=== PATIENT | male | born 1945 | race Caucasian/White ===

== ENCOUNTER 2017-06-13 07:18 | Emergency (ER) | payer OTHER ==
[~2017-06-13] VITALS: Ht 172.7 cm; Wt 117.9 kg
[~2017-06-13 07:18] MED LIST: AMLO5TAB2 PO; ASPI-378 OR; ASPI25CA2 PO; ATEN50TA PO; ATOR20TA50 PO; CALC-30; CALCTAB25 PO; LOSA50TA6 PO; TAMS0.4C36 PO
[2017-06-13] MEDS ORDERED: SODIUM CHLORIDE 0.9% 1,000 ML IV ONE (07:30)
[2017-06-13 08:13] LABS: Urine Bilirubin Negative (Negative); Urine Blood Negative /uL (Negative); Urine Color Yellow (Yellow); Urine Glucose 3+ mg/dL (Normal); Urine Ketone 1+ (Negative); Urine Mucus FEW (None Seen); Urine Nitrite Negative (Negative); Urine RBC 1 /hpf (0 - 3); Urine Squamous Epithelial Cell FEW /hpf (<5); Urine pH 6.5 (5.0-8.0)
[2017-06-13 08:54] LABS: Basophils # (auto) 0.1 uL; Basophils % (auto) 0.9 % (0.0-2.0); Eosinophils # (auto) 0.1 uL; Hematocrit 40.7 % (41.0-53.0); Hemoglobin 13.7 g/dL (13.5-17.5); Lymphocytes % (auto) 10.5 % (10.0-50.0); Mean Corpuscular Hemoglobin 28.1 pg (28.0-32.0); Mean Corpuscular Hgb Conc. 33.5 g/dL (32.0-36.0); Mean Corpuscular Volume 83.9 fL (80.0-100.0); Mean Platelet Volume 7.6 fL (7.4-10.4); Monocytes # (auto) 0.6 uL; Monocytes % (auto) 6.3 % (0.0-12.0); Neutrophils # (auto) 7.7 uL; Neutrophils % (auto) 81.3 % (37.0-80.0); Platelet Count (auto) 280 10^3/uL (140-450); Red Cell Distribution Width 13.8 % (11.6-16.0); White Blood Cell 9.5 10^3/uL (4.4-10.8)
[2017-06-13 09:24] LABS: INR 0.95 (0.9-1.15); Partial Thromboplastin Time 23.8 sec (22.64-33.71); Prothrombin Time 10.4 sec (9.37-12.3)
[2017-06-13 09:30] LABS: B-Type Natriuretic Peptide 410.32 pg/mL (0-100)
[2017-06-13 09:35] LABS: Temperature: 23.1 C (20.0-25.0)
[2017-06-13 10:05] LABS: Albumin 3.3 g/dL (3.4-5.0); Calcium 8.7 mg/dL (8.5-10.1); Magnesium 1.8 mg/dL (1.6-2.6); Potassium 3.7 mmol/L (3.5-5.1)
[2017-06-13 10:10] LABS: Bilirubin, Total 0.5 mg/dL (0.2-1.0); Total Protein 7.3 g/dL (6.4-8.2)
[2017-06-13] MEDS ORDERED: IOHEXOL 350 MG/ML 100ML IJ ONE (10:51)
[2017-06-13] MEDS ORDERED: cefTRIAXone 1GM/50ML D5W 50 ML IV ONE (11:00)
[2017-06-13] MEDS ORDERED: FUROSEMIDE 40 MG/4 ML VIAL IV ONE (11:00)
[2017-06-13] MEDS ORDERED: NITROGLYCERIN 0.4MG/HR TOPICAL PATCH TD ONE (13:30)
[2017-06-13 15:07] VITALS: BP 121/95
== END 2017-06-13 16:33 | disposition short-term general hospital (02) ==
LOC: EDBD 07:18 → ER 07:18
DX: I48.91 Unspecified atrial fibrillation (principal); J18.9 Pneumonia, unspecified organism; E78.5 Hyperlipidemia, unspecified; M19.90 Unspecified osteoarthritis, unspecified site; R74.8 Abnormal levels of other serum enzymes; E44.1 Mild protein-calorie malnutrition; J81.0 Acute pulmonary edema; E11.65 Type 2 diabetes mellitus with hyperglycemia; I25.2 Old myocardial infarction; I25.10 Atherosclerotic heart disease of native coronary artery without angina pectoris; Z98.61 Coronary angioplasty status; Z68.39 Body mass index [BMI] 39.0-39.9, adult; Z87.891 Personal history of nicotine dependence
CPT/HCPCS: 36415; 71020; 71275; 80053; 81001; 83036; 83735; 83880; 84443; 84484; 85025; 85379; 85610; 85730; 87040; 93005; 94761; 96361; 96365; 96375; 99285; J0696; J1940; J7030; Q9967

== ENCOUNTER 2017-12-30 06:31 | Emergency (ER) | payer OTHER ==
[~2017-12-30] VITALS: Ht 172.7 cm; Wt 113.4 kg
[2017-12-30] MEDS ORDERED: ALBUTEROL SULF 2.5 MG/0.5ML(0.5%) NEB SOLN HHN ONE (08:00)
[2017-12-30] MEDS ORDERED: methylPREDNISolone SOD SUCC 125 MG/2 ML VL IV ONE (08:00)
[2017-12-30] MEDS ORDERED: IPRATROPIUM BROM 0.5 MG/2.5ML INH SOL HHN ONE (08:00)
[2017-12-30] MEDS ORDERED: FUROSEMIDE 40 MG/4 ML VIAL IV ONE (09:00)
[2017-12-30 09:05] LABS: Eosinophils # (auto) 0.2 uL; Monocytes # (auto) 0.7 uL; Monocytes % (auto) 6.7 % (0.0-12.0); Red Blood Cells 4.82 10^6/uL (4.5-5.90); White Blood Cell 9.8 10^3/uL (4.4-10.8)
[2017-12-30 09:07] LABS: Basophils # (auto) 0.1 uL; Basophils % (auto) 0.7 % (0.0-2.0); Eosinophils % (auto) 1.8 % (0.0-7.0); Hematocrit 38.5 % (41.0-53.0); Hemoglobin 12.5 g/dL (13.5-17.5); Lymphocytes # (auto) 1.1 uL; Lymphocytes % (auto) 11.4 % (10.0-50.0); Mean Corpuscular Hemoglobin 25.9 pg (28.0-32.0); Mean Corpuscular Hgb Conc. 32.5 g/dL (32.0-36.0); Mean Corpuscular Volume 79.7 fL (80.0-100.0); Neutrophils # (auto) 7.8 uL; Neutrophils % (auto) 79.4 % (37.0-80.0); Platelet Count (auto) 278 10^3/uL (140-450); Red Cell Distribution Width 15.4 % (11.8-14.3)
[2017-12-30 09:28] LABS: Alanine Aminotransferase 42 U/L (16-61); Albumin 2.9 g/dL (3.4-5.0); Alkaline Phosphatase 157 U/L (45-117); Anion Gap 7 (5-15); Aspartate Aminotransferase 18 U/L (15-37); BUN/Creatinine Ratio 18.3; Bilirubin, Total 0.7 mg/dL (0.2-1.0); Blood Urea Nitrogen 21 mg/dL (7-18); Carbon Dioxide 24 mmol/L (21-32); Chloride 103 mmol/L (98-107); GFR African American 81 mL/min; GFR Non-African American 67 mL/min; Glucose 130 mg/dL (74-106); Magnesium 1.9 mg/dL (1.6-2.6); Potassium 4.1 mmol/L (3.5-5.1); Sodium 134 mmol/L (136-145); Total Protein 6.9 g/dL (6.4-8.2)
[2017-12-30 10:05] LABS: Urine Bacteria NONE SEEN /hpf (None Seen); Urine Blood Negative /uL (Negative); Urine WBC <1 /hpf (0 - 3)
[2017-12-30 12:31] VITALS: BP 150/98
== END 2017-12-30 12:42 | disposition short-term general hospital (02) ==
LOC: ER 06:32
DX: I13.0 Hypertensive heart and chronic kidney disease with heart failure and stage 1 through stage 4 chronic kidney disease, or unspecified chronic kidney disease (principal); I50.9 Heart failure, unspecified; N18.3 Chronic kidney disease, stage 3 (moderate); E11.22 Type 2 diabetes mellitus with diabetic chronic kidney disease; I25.2 Old myocardial infarction; I25.10 Atherosclerotic heart disease of native coronary artery without angina pectoris; Z90.49 Acquired absence of other specified parts of digestive tract; Z79.4 Long term (current) use of insulin; Z87.891 Personal history of nicotine dependence
CPT/HCPCS: 36415; 71045; 80053; 81001; 83605; 83735; 83880; 84484; 85025; 87040; 93005; 94640; 94761; 96374; 96375; 99285; J1940; J2930

== ENCOUNTER 2018-10-31 19:36 | Emergency (ER) | payer OTHER ==
[~2018-10-31] VITALS: Ht 175.3 cm; Wt 117.9 kg
[~2018-10-31 19:36] MED LIST changes: +AMLO5TAB13 PO; -AMLO5TAB2 PO; +LOSA-46 PO; -LOSA50TA6 PO
[2018-10-31] MEDS ORDERED: DILTIAZEM HCL 25 MG/5 ML VIAL IV ONE (20:00)
[2018-10-31] MEDS ORDERED: DILTIAZEM HCL 60 MG TAB PO ONE (20:00)
[2018-10-31 20:11] LABS: Basophils # (auto) 0.1 uL; Eosinophils # (auto) 0.2 uL; Monocytes # (auto) 0.6 uL; Neutrophils % (auto) 76.5 % (37.0-80.0)
[2018-10-31 20:12] LABS: Basophils % (auto) 1.2 % (0.0-2.0); Eosinophils % (auto) 2.8 % (0.0-7.0); Hematocrit 33.1 % (41.0-53.0); Hemoglobin 10.5 g/dL (13.5-17.5); Lymphocytes # (auto) 1.1 uL; Lymphocytes % (auto) 12.3 % (10.0-50.0); Mean Corpuscular Hemoglobin 22.7 pg (28.0-32.0); Mean Corpuscular Hgb Conc. 31.6 g/dL (32.0-36.0); Mean Corpuscular Volume 71.8 fL (80.0-100.0); Monocytes % (auto) 7.2 % (0.0-12.0); Neutrophils # (auto) 6.7 uL; Platelet Count (auto) 318 10^3/uL (140-450); Red Blood Cells 4.61 10^6/uL (4.5-5.90); White Blood Cell 8.8 10^3/uL (4.4-10.8)
[2018-10-31 20:28] LABS: Calcium 8.4 mg/dL (8.5-10.1); Potassium 3.5 mmol/L (3.5-5.1)
[2018-10-31 20:29] LABS: Red Cell Distribution Width 20.5 % (11.8-14.3)
[2018-10-31 20:36] LABS: BUN/Creatinine Ratio 21.1; Bilirubin, Total 0.7 mg/dL (0.2-1.0); Total Protein 7.5 g/dL (6.4-8.2)
[2018-10-31 20:41] LABS: INR 1.03 (0.9-1.15); Partial Thromboplastin Time 25.7 sec (23.78-33.04)
[2018-11-01] MEDS ORDERED: FUROSEMIDE 20 MG/2 ML VIAL IV ONE (01:30)
[2018-11-01] MEDS ORDERED: cefTRIAXone 1GM/50ML D5W 50 ML IV ONE (03:15)
[2018-11-01 03:21] VITALS: BP 171/91
== END 2018-11-01 07:46 | disposition home or self-care (01) ==
LOC: EDBD 19:36 → ER 19:42
DX: J18.9 Pneumonia, unspecified organism (principal); I48.91 Unspecified atrial fibrillation; I11.0 Hypertensive heart disease with heart failure; I50.9 Heart failure, unspecified; J44.9 Chronic obstructive pulmonary disease, unspecified; E11.9 Type 2 diabetes mellitus without complications; E78.5 Hyperlipidemia, unspecified; M54.2 Cervicalgia; R51 Headache; I25.2 Old myocardial infarction; Z90.49 Acquired absence of other specified parts of digestive tract; Z87.891 Personal history of nicotine dependence; Z98.61 Coronary angioplasty status
CPT/HCPCS: 36415; 70450; 71045; 71250; 72125; 80053; 83735; 83880; 84443; 84484; 85025; 85610; 85730; 93005; 94761; 96365; 96375; 99284; J0696; J1940

== ENCOUNTER 2020-03-11 07:53 | Inpatient (IN) | payer OTHER ==
[~2020-03-11] VITALS: Ht 177.8 cm; Wt 135.3 kg
[~2020-03-11 07:53] MED LIST changes: -AMLO5TAB13 PO; +AMLO5TAB15 PO; -LOSA-46 PO; +LOSA-69 PO
[2020-03-11] MEDS ORDERED: FUROSEMIDE 40 MG/4 ML VIAL IV ONE ×2 (08:15→08:45)
[2020-03-11 08:28] LABS: Basophils # (auto) 0.1 10 ^3/uL (0-0.2); Hemoglobin 10.4 g/dL (13.5-17.5); Lymphocytes # (auto) 1.5 10 ^3/uL (0.4-5.4); Monocytes # (auto) 0.8 10 ^3/uL (0-1.3); Nucleated Red Blood Cells % 0.1 %; White Blood Cell 11.7 10^3/uL (4.4-10.8)
[2020-03-11 08:30] LABS: Eosinophils # (auto) 0.1 10 ^3/uL (0-0.8); Eosinophils % (auto) 1.2 % (0.0-7.0); Hematocrit 32.8 % (41.0-53.0); Lymphocytes % (auto) 12.4 % (10.0-50.0); Mean Corpuscular Hemoglobin 25.8 pg (28.0-32.0); Mean Corpuscular Hgb Conc. 31.7 g/dL (32.0-36.0); Mean Corpuscular Volume 81.5 fL (80.0-100.0); Monocytes % (auto) 7.1 % (0.0-12.0); Neutrophils # (auto) 9.1 10 ^3/uL (1.6-8.6); Neutrophils % (auto) 78.3 % (37.0-80.0); Platelet Count (auto) 369 10^3/uL (140-450); Red Blood Cells 4.03 10^6/uL (4.5-5.90); Red Cell Distribution Width 17.6 % (11.8-14.3)
[2020-03-11 08:46] LABS: Alanine Aminotransferase 34 U/L (16-61); Albumin 2.8 g/dL (3.4-5.0); Anion Gap 8 (5-15); Aspartate Aminotransferase 28 U/L (15-37); BUN/Creatinine Ratio 17.3; Blood Urea Nitrogen 17 mg/dL (7-18); Calcium 8.2 mg/dL (8.5-10.1); Carbon Dioxide 26 mmol/L (21-32); Chloride 101 mmol/L (98-107); GFR African American 96 mL/min; GFR Non-African American 80 mL/min; Glucose 154 mg/dL (74-106); INR 1.16 (0.9-1.15); Partial Thromboplastin Time 27.1 sec (23.64-32.05); Potassium 4.3 mmol/L (3.5-5.1); Sodium 135 mmol/L (136-145)
[2020-03-11 08:50] LABS: Alkaline Phosphatase 188 U/L (45-117); Bilirubin, Total 1.7 mg/dL (0.2-1.0); Total Protein 7.8 g/dL (6.4-8.2)
--- NOTE | 2020-03-11 08:53 | NUR ---
Placed pt. on 15lpm nrb mask, due to pt. being r/o covid. Pt. is awake and alert, he states is feeling much better. Pt's current sats are 99%. Abg to follow on nrb.
[2020-03-11 09:07] LABS: Urine Bacteria FEW /hpf (None Seen); Urine Blood 3+ /uL (Negative); Urine Hyaline Cast MOD /lpf (0 - 2); Urine Mucus FEW (None Seen); Urine Specific Gravity 1.019 (1.001-1.035); Urine WBC None Seen /hpf (0 - 3)
[2020-03-11] MEDS ORDERED: cefTRIAXone 1GM/50ML D5W 50 ML IV ONE (10:15)
[2020-03-11] MEDS ORDERED: AZITHROMYCIN 500MG/ 250ML 250 ML IV ONE (10:15)
[2020-03-11] MEDS ORDERED: NITROGLYCERIN 0.4 MG SL TAB SL PRN (13:30)
[2020-03-11] MEDS ORDERED: ALBUTEROL SULF 2.5 MG/0.5ML(0.5%) NEB SOLN NEB PRN (13:30)
[2020-03-11] MEDS ORDERED: TEMAZEPAM 15 MG CAP PO PRN (13:30)
[2020-03-11] MEDS ORDERED: LACTULOSE 20Gm/30ML SOLN PO PRN (13:30)
[2020-03-11] MEDS ORDERED: ACETAMINOPHEN 500 MG TAB PO PRN (13:30)
[2020-03-11] MEDS ORDERED: PROMETHAZINE HCL 25 MG/ML 1ML IV PRN (13:30)
[2020-03-11] MEDS ORDERED: MORPHINE SULF INJ 2 MG/ML SYRINGE 1ML IV PRN (13:30)
[2020-03-11] MEDS ORDERED: levoFLOXacin 500MG 100 ML IV ONE (13:45)
[2020-03-11] MEDS: SODIUM CHLOR 0.9% PF (SALINE LOCK) 10ML VIAL/SYR IV SCH ×2 (13:54→22:31)
[2020-03-11 15:16] VITALS: BP 111/59
[2020-03-11] MEDS ORDERED: DEXTROSE (50%) 50ML SYRG IV PRN (16:00)
[2020-03-11] MEDS: InsuLIN REG 1unit/0.01ml Soln (100units/ml) SC SCH ×2 (17:03→22:39)
[2020-03-11] MEDS: ACCU-CHEK COMFORT CURVE STRIP VI SCH ×2 (17:04→22:37)
[2020-03-11] MEDS: ASPIRIN-DIPYRIDAMOLE (25/200MG) CAPSULE PO SCH (22:31)
[2020-03-11] MEDS: ATORVASTATIN 20 MG TAB PO SCH (22:36)
[2020-03-11] MEDS: TAMSULOSIN HYDROCHLORIDE 0.4 MG CAP PO SCH (22:36)
[2020-03-11] MEDS: CARVEDILOL 3.125 MG TAB PO SCH (22:36)
[2020-03-12] VITALS (12 sets, daily range): BP systolic 101–130; BP diastolic 43–68
[2020-03-12] MEDS ORDERED: ALBUMIN 5% 250 ML IV ONE (01:15)
[2020-03-12] MEDS ORDERED: NOREPINEPHRINE 8 MG/250ML KIT 250 ML IV ONE (01:51)
[2020-03-12] MEDS: NOREPINEPHRINE 8 MG/250ML KIT 250 ML IV SCH (02:02)
--- NOTE | 2020-03-12 04:32 | NUR ---
AT BEDSIDE FOR MED DONALDO PANG.
[2020-03-12 05:44] LABS: Albumin 2.8 g/dL (3.4-5.0); Calcium 8.1 mg/dL (8.5-10.1); Potassium 3.8 mmol/L (3.5-5.1)
[2020-03-12 05:49] LABS: Bilirubin, Total 1.1 mg/dL (0.2-1.0); Total Protein 6.7 g/dL (6.4-8.2)
[2020-03-12] MEDS: SODIUM CHLOR 0.9% PF (SALINE LOCK) 10ML VIAL/SYR IV SCH ×3 (06:16→21:55)
[2020-03-12 06:36] LABS: Basophils # (auto) 0.1 10 ^3/uL (0-0.2); Eosinophils # (auto) 0.2 10 ^3/uL (0-0.8); Eosinophils % (auto) 2.2 % (0.0-7.0); Mean Corpuscular Hemoglobin 26.2 pg (28.0-32.0); Monocytes # (auto) 0.6 10 ^3/uL (0-1.3); Neutrophils # (auto) 7.1 10 ^3/uL (1.6-8.6); Nucleated Red Blood Cells % 0.1 %; Red Cell Distribution Width 17.5 % (11.8-14.3); White Blood Cell 9.6 10^3/uL (4.4-10.8)
[2020-03-12 06:38] LABS: Basophils % (auto) 1.1 % (0.0-2.0); Hematocrit 28.3 % (41.0-53.0); Hemoglobin 9.1 g/dL (13.5-17.5); Lymphocytes # (auto) 1.6 10 ^3/uL (0.4-5.4); Lymphocytes % (auto) 16.3 % (10.0-50.0); Mean Corpuscular Hgb Conc. 32.2 g/dL (32.0-36.0); Mean Corpuscular Volume 81.4 fL (80.0-100.0); Monocytes % (auto) 6.2 % (0.0-12.0); Neutrophils % (auto) 74.2 % (37.0-80.0); Platelet Count (auto) 317 10^3/uL (140-450); Red Blood Cells 3.47 10^6/uL (4.5-5.90)
[2020-03-12] MEDS: InsuLIN REG 1unit/0.01ml Soln (100units/ml) SC SCH ×4 (07:33→21:56)
[2020-03-12] MEDS: ACCU-CHEK COMFORT CURVE STRIP VI SCH ×4 (07:33→21:56)
[2020-03-12] MEDS: HYDROcodone-ACET 10/325MG TAB PO PRN ×2 (07:44→17:13)
[2020-03-12] MEDS: CARVEDILOL 3.125 MG TAB PO SCH (08:00)
[2020-03-12] MEDS ORDERED: FUROSEMIDE 40 MG/4 ML VIAL IV SCH (10:00)
[2020-03-12] MEDS ORDERED: levoFLOXacin 500MG 100 ML IV SCH (10:00)
[2020-03-12] MEDS ORDERED: ASPirin 81 mg TAB PO SCH (10:00)
[2020-03-12] MEDS: NITROGLYCERIN 0.2MG/HR TOPICAL PATCH TD SCH (10:00)
[2020-03-12] MEDS ORDERED: LOSARTAN POTASSIUM 50 MG TAB PO SCH (10:00)
[2020-03-12] MEDS ORDERED: ENOXAPARIN SOD 40 MG/0.4 ML SYRINGE SC SCH (10:00)
[2020-03-12] MEDS: POTASSIUM CHL 20 Meq TABLET PO SCH (10:38)
[2020-03-12] MEDS: ASPIRIN-DIPYRIDAMOLE (25/200MG) CAPSULE PO SCH (10:38)
[2020-03-12] MEDS ORDERED: cefTRIAXone 1GM/50ML D5W 50 ML IV ONE (11:15)
[2020-03-12] MEDS ORDERED: DOXYCYCLINE 100MG/250ML 250 ML IV SCH (11:15)
[2020-03-12] MEDS ORDERED: DOXYCYCLINE 100MG/250ML 250 ML IV ONE (11:15)
[2020-03-12] MEDS: DOXYCYCLINE 100 MG TAB/CAP PO SCH ×2 (11:41→21:55)
[2020-03-12] MEDS: ALBUTEROL SULF 2.5 MG/0.5ML(0.5%) NEB SOLN NEB SCH ×2 (15:47→18:24)
[2020-03-12] MEDS: IPRATROPIUM BROM 0.5 MG/2.5ML INH SOL NEB SCH ×2 (15:47→18:24)
--- NOTE | 2020-03-12 16:32 | NUR ---
1628 03/12/20 Contacted [facility] at [phone] spoke with case management director Varsha requesting authorization for continued stay. Per Varsha authorization pending review of all clinical. Also informed Varsha transfer order, h/p,labs, meds, all were faxed, Varsha did acknowledge receipt of all documents. Varsha stated that she would work on transfer to [facility].
--- NOTE | 2020-03-12 16:50 | NUR ---
[facility] CALLED FOR AN UPDATE. REQUEST FOR TRANSFER IN PROCESS. PATIENT AWARE.
--- NOTE | 2020-03-12 17:00 | NUR ---
VERA REFUSED PATIENT NOTIFIED OF IMPORTANCE OF VERA CATHETER, PATIENT CONTINUES TO REFUSE VERA AT THIS TIME AND STATES HIS PATIENTS RIGHTS. THIS RN AGREES. VERA HELD.
--- NOTE | 2020-03-12 18:00 | NUR ---
IV removal IV DC'd with sterile technique, catheter fully intact. Pressure dressing applied to site. Patient tolerated procedure well. Discharged with aftercare instructions per MD. NOTE:
--- NOTE | 2020-03-12 18:06 | NUR ---
DR. FELIZ AT BEDSIDE.
[2020-03-12] MEDS: DOBUTamine 1000MCG/ML 250 ML IV SCH (18:15)
--- NOTE | 2020-03-12 18:33 | NUR ---
U/S TECH AT BEDSIDE
--- NOTE | 2020-03-12 18:34 | NUR ---
BP PATIENTS CURRENT BP 130/47. LEVO DECREASED PER PROTOCOL. DOBUTAMINE TO BE CHANGED IF PT CONTINUES TO NEED LEVOPHED. ONCOMING NURSE TO FOLLOW UP PT IS TOLERATING TITRATION OFF LEVOPHED.
--- NOTE | 2020-03-12 19:30 | NUR ---
SHIFT OPENING NOTE RECEIVED PATIENT AWAKE, ALERT AND ORIENTED X4 EATING DINNER. NO SOB, DISTRESS OR PAIN NOTED. ON 8L N/C. REFUSES ANY OTHER OXYGENATION DEVICE. USES URINAL, HAS REFUSED VERA CATHETER PLACEMENT. RIGHT IJ 3 LUMEN SALINE LOCKED. +3 PITTING EDEMA TO LOWER EXTREMITIES. DAY SHIFT NURSE STOPPED THE LEVOPHED AT 1830. PATIENT IS ON NO DRIPS AT THIS TIME. PHYSICAL ASSESSMENT COMPLETED, SEE INTERVENTIONS. INSTRUCTED ON POC AND TO CALL FOR ASSIST NEEDED. BED IS IN THE LOWEST POSITION WITH SIDE RAILS UP X2, CALL LIGHT IS WITHIN REACH. PENDING TRANSFER TO [place]. NO BED YET.
[2020-03-12] MEDS: ATORVASTATIN 20 MG TAB PO SCH (21:55)
[2020-03-12] MEDS: TAMSULOSIN HYDROCHLORIDE 0.4 MG CAP PO SCH (21:55)
[2020-03-12] MEDS: ENOXAPARIN SOD 150 MG/1 ML SYRINGE SC SCH (21:56)
[2020-03-12] MEDS: FUROSEMIDE 40 MG/4 ML VIAL IV SCH (22:00)
--- NOTE | 2020-03-12 22:00 | NUR ---
REFUSED LASIX PATIENT REFUSED LASIX, SAID THAT "THE DOCTOR SHOULD KNOW NOT TO GIVE IT AT NIGHT" EXPLAINED TO THE PATIENT REGARDING HIS DIAGNOSIS AND THE NEED FOR A VERA CATHETER IN ORDER FOR HIM TO GET THE CORRECT TREATMENT AROUND THE CLOCK AND FOR THE STAFF TO MONITOR HIM. PATIENT REFUSED VERA CATHETER SAYING "IF THE DOCTOR MAKES ME GET IT, ILL LEAVE JUST LIKE I ALMOST DID IN THE ER". PATIENT IS NONCOMPLIANT AND SAYS HE HAS HIS PATIENT RIGHTS TO REFUSE ANYTHING HE WANTS.
[2020-03-13] VITALS (22 sets, daily range): BP systolic 96–144; BP diastolic 45–83
[2020-03-13] MEDS: DOBUTamine 1000MCG/ML 250 ML IV SCH ×2 (00:29→06:06)
[2020-03-13] MEDS: NOREPINEPHRINE 8 MG/250ML KIT 250 ML IV SCH (01:45)
[2020-03-13 04:19] LABS: Basophils # (auto) 0.1 10 ^3/uL (0-0.2); Eosinophils # (auto) 0.4 10 ^3/uL (0-0.8); Eosinophils % (auto) 4.8 % (0.0-7.0); Nucleated Red Blood Cells % 0.1 %
[2020-03-13 04:21] LABS: Basophils % (auto) 1.3 % (0.0-2.0); Hematocrit 28.8 % (41.0-53.0); Hemoglobin 9.4 g/dL (13.5-17.5); Lymphocytes # (auto) 1.2 10 ^3/uL (0.4-5.4); Lymphocytes % (auto) 15.1 % (10.0-50.0); Mean Corpuscular Hemoglobin 26.3 pg (28.0-32.0); Mean Corpuscular Hgb Conc. 32.4 g/dL (32.0-36.0); Monocytes # (auto) 0.5 10 ^3/uL (0-1.3); Monocytes % (auto) 6.5 % (0.0-12.0); Neutrophils # (auto) 5.8 10 ^3/uL (1.6-8.6); Neutrophils % (auto) 72.3 % (37.0-80.0); Platelet Count (auto) 337 10^3/uL (140-450); Red Blood Cells 3.56 10^6/uL (4.5-5.90); Red Cell Distribution Width 17.7 % (11.8-14.3)
[2020-03-13 04:34] LABS: BUN/Creatinine Ratio 25.6; Calcium 8.3 mg/dL (8.5-10.1); Potassium 4.4 mmol/L (3.5-5.1)
--- NOTE | 2020-03-13 06:00 | NUR ---
MORNING HYGIENE CARE PARTIAL BED BATH PERFORMED WITH WET SOAPY WASH CLOTHES. GOWN CHANGED. PARTIAL LINEN CHANGED. PATIENT REPOSITIONED FOR COMFORT. NORCO GIVEN FOR BACK PAIN. TOLERATED IT WELL.
[2020-03-13] MEDS: SODIUM CHLOR 0.9% PF (SALINE LOCK) 10ML VIAL/SYR IV SCH ×3 (06:29→21:16)
[2020-03-13] MEDS: InsuLIN REG 1unit/0.01ml Soln (100units/ml) SC SCH ×4 (06:29→21:15)
[2020-03-13] MEDS: ACCU-CHEK COMFORT CURVE STRIP VI SCH ×4 (06:29→21:15)
[2020-03-13] MEDS: FUROSEMIDE 40 MG/4 ML VIAL IV SCH ×2 (06:30→18:22)
[2020-03-13] MEDS: HYDROcodone-ACET 10/325MG TAB PO PRN ×2 (06:31→18:23)
[2020-03-13] MEDS: IPRATROPIUM BROM 0.5 MG/2.5ML INH SOL NEB SCH ×3 (07:29→22:36)
[2020-03-13] MEDS: ALBUTEROL SULF 2.5 MG/0.5ML(0.5%) NEB SOLN NEB SCH ×3 (07:29→22:36)
--- NOTE | 2020-03-13 07:30 | NUR ---
END OF SHIFT REPORT GIVEN AND CARE ENDORSED TO ASHLEY CLEMONS.
[2020-03-13] MEDS: cefTRIAXone 1GM/50ML D5W 50 ML IV SCH (09:31)
[2020-03-13] MEDS: NITROGLYCERIN 0.2MG/HR TOPICAL PATCH TD SCH (10:00)
[2020-03-13] MEDS: DOXYCYCLINE 100 MG TAB/CAP PO SCH ×2 (10:14→21:16)
[2020-03-13] MEDS: POTASSIUM CHL 20 Meq TABLET PO SCH (10:14)
[2020-03-13] MEDS: ENOXAPARIN SOD 150 MG/1 ML SYRINGE SC SCH (10:14)
--- NOTE | 2020-03-13 11:02 | NUR ---
WOUND CARE NOTE: Wound care in to see patient per wound care request regarding skin integrity issue that are noted upon admission. Bedside nurse took photograph of patient's skin issue upon admission for reference. Patient is 74 years old male with admitting diagnosis of Acute Heart Failure, A Fib with RVR. Patient is resting in ICU bed in Rm. 110. Patient is awake, alert and oriented. Patient is in no stated pain at this time. He's able to assist in turning and re positioning. His Cody score is 15. Patient noted with multi intact ecchymosis to buttocks and thighs, surrounding skin is pink blanchable, no drainage/odor noted. Patient is not aware of his ecchymosis to buttocks and thighs. He's has control with bowel and bladder and uses urinal. He's receiving BID/PRN cleaning and application of Barrier cream to sacral/buttocks as preventative. Patient re ported that he's ambulatory. Patient denies any other wound/skin issue. RECOMMENDATION: Nursing to continue with BID/PRN cleaning and application of Barrier cream to sacral, buttocks as preventative, redistribute pressure points with pillows, elevate heels on pillows, continue monitoring by wound care while patient's Cody score is <18. Addendum: 03/13/20 at 1342 by Josselin Santana RN Amended: Links added.
--- NOTE | 2020-03-13 12:18 | NUR ---
Resumed care at 0725, orders reviewed and ongoing assessments being done. Upon arrival of shift in bed, awake and interacting appropriately. Assisted out of bed to chair at 0800. Able to stand and transferred to chair without incident. AM care offered and able to participate with self care. Does have some mild SOB during ADL's. BP has been holding and prior shift did not have to restart Levophed. Dr. Pérez rounded at bedside at noon and stable to downgrade to [facility] and to transfer to [place] when bed available. Discussed plan of care and patient in agreement.
[2020-03-13] MEDS ORDERED: OPTISON 3ml Vial for INJ IV ONE (14:03)
--- NOTE | 2020-03-13 14:22 | NUR ---
IMAGE ENHANCED ECHO: Administered 2 mL Optison image enhancer IV. Lot # [id number], Exp: 04/20/27
--- NOTE | 2020-03-13 15:18 | NUR ---
Returned to bed at 1345 after lunch. Has been in no acute distress. Echo. done at bedside by Radha and Dr. Avila came in for cardiology consult secondary to CHF.
--- NOTE | 2020-03-13 16:03 | NUR ---
UNABLE TO GIVE MN. TX AT 1200, DUE TO STANDBY FOR BRONCHOSCOPY IN 103 AND RE-INTUBATION. PT. CHECKED AT 1547. PT. SLEEPING, NO RESP. DISTRESS OR SOB NOTED, WILL SEE PT. AT NEXT SCHEDULED TIME.
--- NOTE | 2020-03-13 18:55 | NUR ---
Sitting in chair eating dinner at this time in no acute distress. [facility] reprehensive called and updated on condition. Plan to transfer when bed available.
--- NOTE | 2020-03-13 19:10 | NUR ---
RECEIVED REPORT ON PT FROM DAY SHIFT RN. ASSUMED CARE. AWAITING BED AVAILABILITY ON FLOOR.
--- NOTE | 2020-03-13 20:10 | NUR ---
PT TRANSFERRED TO ROOM 274 A VIA WHEELCHAIR AFTER REPORT GIVEN TO DEONTE PARKER. MADE HER AWARE OF TRANSFER TO [facility]. ALL PAPERWORK COMPLETE EXCEPT FOR DISC. TELE MONITOR AND 6L PORTABLE O2 APPLIED.
--- NOTE | 2020-03-13 20:15 | NUR ---
received pt. from icu, pt. in stable condition, no c/o pain, no sob.
[2020-03-13] MEDS: ATORVASTATIN 20 MG TAB PO SCH (21:16)
[2020-03-13] MEDS: TAMSULOSIN HYDROCHLORIDE 0.4 MG CAP PO SCH (21:16)
[2020-03-13] MEDS: APIXABAN 5 MG TAB PO SCH (21:16)
--- NOTE | 2020-03-13 22:00 | NUR ---
waiting to call back [facility], no call back at this time.
--- NOTE | 2020-03-14 | NUR ---
jacinta not calling back at this time.
[2020-03-14] MEDS: HYDROcodone-ACET 10/325MG TAB PO PRN ×4 (01:09→21:55)
[2020-03-14 05:00] VITALS: BP 131/81
[2020-03-14] MEDS: SODIUM CHLOR 0.9% PF (SALINE LOCK) 10ML VIAL/SYR IV SCH ×3 (05:32→21:54)
[2020-03-14] MEDS: FUROSEMIDE 40 MG/4 ML VIAL IV SCH ×3 (05:32→17:51)
--- NOTE | 2020-03-14 06:00 | NUR ---
v/s stable, for transfer to [place], no call back from [place], not in distress.
[2020-03-14] MEDS: InsuLIN REG 1unit/0.01ml Soln (100units/ml) SC SCH ×4 (06:05→21:56)
[2020-03-14] MEDS: ACCU-CHEK COMFORT CURVE STRIP VI SCH ×4 (06:06→21:55)
[2020-03-14 07:28] LABS: Basophils # (auto) 0.1 10 ^3/uL (0-0.2); Basophils % (auto) 0.9 % (0.0-2.0); Eosinophils # (auto) 0.4 10 ^3/uL (0-0.8); Monocytes # (auto) 0.6 10 ^3/uL (0-1.3)
--- NOTE | 2020-03-14 07:30 | NUR ---
RT Paged Pt is c/o SOB while eating. Assessed pt's O2, currently at 93% at 6L via NC. Pt requesting that we turn up his O2. Discussed with pt need to change NC to oxymizer to do so; pt refused. Paged RT for breathing treatment. Pt further states that he is "not getting better [and] should just go home". Provided pt with education on NC and oxygenation while eating; pt still adamant on need to turn up O2. Will continue too monitor.
--- NOTE | 2020-03-14 07:31 | NUR ---
Opening Note Assumed pt care from NOC RN. Pt is a/ox4 with no s/s of distress. Pt is currently sitting at edge of bed eating breakfast and c/o of SOB; RT has been paged for a breathing tx. Discussed POC with pt and pending transfer; pt verbalized understanding. Safety measures maintained with call light within reach, bed in lowest position and side rails up. Will continue to monitor.
[2020-03-14 07:35] LABS: Hematocrit 28.5 % (41.0-53.0); Hemoglobin 9.2 g/dL (13.5-17.5); Lymphocytes # (auto) 0.7 10 ^3/uL (0.4-5.4); Lymphocytes % (auto) 9.6 % (10.0-50.0); Mean Corpuscular Hemoglobin 26.1 pg (28.0-32.0); Mean Corpuscular Hgb Conc. 32.2 g/dL (32.0-36.0); Mean Corpuscular Volume 81.3 fL (80.0-100.0); Neutrophils # (auto) 5.9 10 ^3/uL (1.6-8.6); Neutrophils % (auto) 76.5 % (37.0-80.0); Platelet Count (auto) 277 10^3/uL (140-450); Red Blood Cells 3.51 10^6/uL (4.5-5.90); White Blood Cell 7.7 10^3/uL (4.4-10.8)
[2020-03-14 07:49] LABS: BUN/Creatinine Ratio 29.6; Calcium 8.2 mg/dL (8.5-10.1); Potassium 4.1 mmol/L (3.5-5.1)
[2020-03-14 08:19] VITALS: BP 119/52
[2020-03-14] MEDS: ALBUTEROL SULF 2.5 MG/0.5ML(0.5%) NEB SOLN NEB SCH ×3 (08:32→18:24)
[2020-03-14] MEDS: IPRATROPIUM BROM 0.5 MG/2.5ML INH SOL NEB SCH ×3 (08:32→18:24)
[2020-03-14] MEDS: APIXABAN 5 MG TAB PO SCH ×2 (08:39→21:54)
[2020-03-14] MEDS: DOXYCYCLINE 100 MG TAB/CAP PO SCH ×2 (08:39→21:55)
[2020-03-14] MEDS: cefTRIAXone 1GM/50ML D5W 50 ML IV SCH (08:40)
[2020-03-14] MEDS: POTASSIUM CHL 20 Meq TABLET PO SCH (08:40)
--- NOTE | 2020-03-14 10:54 | NUR ---
Spoke with [facility] Spoke with Colleen, , employment evaluator/case manager at [facility]. Answered a few questions regarding status of patient. Provided contact information for unit. She states that she would get back to me regarding transfer of patient. delicatessen department manager further stated that pt would most likely being transferred to [facility] in [place]. Will continue to monitor.
[2020-03-14 13:00] VITALS: BP 115/43
[2020-03-14 15:05] VITALS: BP 115/43
[2020-03-14 17:06] VITALS: BP 128/75
--- NOTE | 2020-03-14 17:57 | NUR ---
SPOKE WITH [facility] AT [place] ([facility]) HER PHONE NUMBER IS [phone], PATIENT WILL BE TRANSFERRED TO [facility] AT 2000, TO ROOM 310, CALL REPORT TO [phone], RN MUST CALL AFTER 193, RECEIVING MD DR SASHA FABIAN, PRIMARY RN LAURA GREEN
--- NOTE | 2020-03-14 18:03 | NUR ---
Updated pt on POC Updated pt on POC Will endorse report to [facility] RN due to [facility] staff wanting report after 1930.
--- NOTE | 2020-03-14 19:22 | NUR ---
Angelica from [facility] called, she wants an updated set of vital signs, phone number to call back is [phone].
--- NOTE | 2020-03-14 19:32 | NUR ---
[facility] TIME Called [facility] back, spoke with Angelica, new chart picker time from [facility] [place] is 2200.
--- NOTE | 2020-03-14 21:00 | NUR ---
Called for report, spoke with TAYLOR Medina given and all questions answered. Patient is going to bed 310, phone number is [phone].
[2020-03-14 21:06] VITALS: BP 115/76
[2020-03-14] MEDS: ATORVASTATIN 20 MG TAB PO SCH (21:54)
[2020-03-14] MEDS: TAMSULOSIN HYDROCHLORIDE 0.4 MG CAP PO SCH (21:54)
--- NOTE | 2020-03-14 22:41 | NUR ---
Discharge Transfers Patient is being transferred to [facility]. Patient is to follow up with accepting doctor Zulema Trujillo at the receiving facility. Patient is going to bed 310, receiving RN is Carol. Patient was transferred with [facility], all belongings sent with patient. wax pattern assembler was removed and sent to ICU. No S/S of distress or pain or SOB at discharge.
--- NOTE | 2020-03-14 23:06 | NUR ---
Called Carol CLEMONS at [facility] for an update and the ETA.
--- NOTE | 2020-03-15 08:50 | NUR ---
generating station mechanic 03/13/2020 Per consult transfer to [place]. Patient was transferred to [place] by bedside RN. No call or page on this patient. Addendum: 03/15/20 at 0852 by Tess BATES Amended: Links added.
[2020-03-30] MEDS ORDERED: AMLO2.5T7 PO (15:21)
== END 2020-03-14 22:00 | disposition short-term general hospital (02) | DRG 291 ==
LOC: EDBD 07:53 → ER 07:53 → OVERFLOW 07:54 → ICU WEST 03-12 16:20 → TELE-WESTW 03-13 20:05
PROVIDERS: ADMIT Internal Medicine; ATTEND Internal Medicine
PROC: 05HY33Z Insertion of Infusion Device into Upper Vein, Percutaneous Approach (ICD-10-PCS; principal; 2020-03-11)
PROC: 5A09357 Assistance with Respiratory Ventilation, Less than 24 Consecutive Hours, Continuous Positive Airway Pressure (ICD-10-PCS; 2020-03-11)
DX: I13.0 Hypertensive heart and chronic kidney disease with heart failure and stage 1 through stage 4 chronic kidney disease, or unspecified chronic kidney disease (principal); J96.01 Acute respiratory failure with hypoxia; J18.9 Pneumonia, unspecified organism; N17.0 Acute kidney failure with tubular necrosis; I50.33 Acute on chronic diastolic (congestive) heart failure; J81.1 Chronic pulmonary edema; I48.20 Chronic atrial fibrillation, unspecified; I48.92 Unspecified atrial flutter; E44.0 Moderate protein-calorie malnutrition; I42.9 Cardiomyopathy, unspecified; I48.0 Paroxysmal atrial fibrillation; E11.22 Type 2 diabetes mellitus with diabetic chronic kidney disease; M19.90 Unspecified osteoarthritis, unspecified site; E78.5 Hyperlipidemia, unspecified; G47.33 Obstructive sleep apnea (adult) (pediatric); I25.10 Atherosclerotic heart disease of native coronary artery without angina pectoris; Z20.828 Contact with and (suspected) exposure to other viral communicable diseases; N18.3 Chronic kidney disease, stage 3 (moderate); D63.8 Anemia in other chronic diseases classified elsewhere; J44.9 Chronic obstructive pulmonary disease, unspecified; E66.01 Morbid (severe) obesity due to excess calories; Z83.3 Family history of diabetes mellitus; Z87.891 Personal history of nicotine dependence; Z91.19 Patient's noncompliance with other medical treatment and regimen; Z95.5 Presence of coronary angioplasty implant and graft; I25.2 Old myocardial infarction; Z90.49 Acquired absence of other specified parts of digestive tract; Z90.89 Acquired absence of other organs; Z88.2 Allergy status to sulfonamides; Z79.899 Other long term (current) drug therapy; Z79.4 Long term (current) use of insulin
CPT/HCPCS: 36415; 36569; 36600; 71045; 80048; 80053; 81001; 82550; 82728; 82805; 82962; 83036; 83605; 83615; 83735; 83880; 84443; 84484; 85025; 85610; 85730; 87040; 87070; 87081; 87804; 87880; 93005; 93306; 93970; 94640; 94660; 99291; G0378; J0696; J1815; Q9956

== ENCOUNTER 2020-03-29 16:15 | Inpatient (IN) | payer OTHER ==
[~2020-03-29] VITALS: Ht 172.7 cm; Wt 132.5 kg
[2020-03-29] MEDS ORDERED: SODIUM CHLORIDE 0.9% 500 ML IV ONE (17:22)
[2020-03-29] MEDS ORDERED: ONDANSETRON HCL 4 MG/2 ML VIAL IV ONE ×2 (17:30→20:15)
[2020-03-29] MEDS ORDERED: MORPHINE SULFATE 4 MG/ML SYR/VIAL IV ONE ×2 (17:30→20:15)
[2020-03-29 18:12] LABS: Basophils # (auto) 0.1 10 ^3/uL (0-0.2); Eosinophils # (auto) 0 10 ^3/uL (0-0.8); Eosinophils % (auto) 0.1 % (0.0-7.0); Hematocrit 30.2 % (41.0-53.0)
[2020-03-29 18:14] LABS: Basophils % (auto) 0.3 % (0.0-2.0); Hemoglobin 9.2 g/dL (13.5-17.5); Lymphocytes # (auto) 1.4 10 ^3/uL (0.4-5.4); Lymphocytes % (auto) 7.7 % (10.0-50.0); Mean Corpuscular Hemoglobin 25.5 pg (28.0-32.0); Mean Corpuscular Hgb Conc. 30.4 g/dL (32.0-36.0); Mean Corpuscular Volume 83.7 fL (80.0-100.0); Monocytes # (auto) 1.2 10 ^3/uL (0-1.3); Monocytes % (auto) 6.8 % (0.0-12.0); Neutrophils # (auto) 15.6 10 ^3/uL (1.6-8.6); Neutrophils % (auto) 85.1 % (37.0-80.0); Platelet Count (auto) 311 10^3/uL (140-450); Red Blood Cells 3.61 10^6/uL (4.5-5.90); White Blood Cell 18.4 10^3/uL (4.4-10.8)
[2020-03-29 18:37] LABS: Albumin 2.5 g/dL (3.4-5.0); Calcium 8.3 mg/dL (8.5-10.1)
[2020-03-29 18:44] LABS: CRP High Sensitivity 8.59 mg/dL (< 0.3); Total Protein 6.3 g/dL (6.4-8.2)
[2020-03-29 20:14] LABS: Urine Bacteria NONE SEEN /hpf (None Seen); Urine Blood Negative /uL (Negative); Urine Specific Gravity 1.029 (1.001-1.035); Urine WBC 1 /hpf (0 - 3)
[2020-03-29] MEDS ORDERED: ONDANSETRON HCL 4 MG/2 ML VIAL IV PRN (20:45)
[2020-03-29] MEDS ORDERED: DOCUSATE SOD 100 MG CAP PO PRN (20:45)
[2020-03-29] MEDS ORDERED: ACETAMINOPHEN 500 MG TAB PO PRN (20:45)
[2020-03-29] MEDS: ALBUTEROL SULF HFA 90MCG INH 200DOSE IN SCH (22:20)
[2020-03-29] MEDS: DOXYCYCLINE 100 MG TAB/CAP PO SCH (22:24)
[2020-03-29] MEDS: MORPHINE SULF INJ 2 MG/ML SYRINGE 1ML IV PRN (22:37)
[2020-03-30] VITALS (8 sets, daily range): BP systolic 108–131; BP diastolic 48–100
[2020-03-30] MEDS ORDERED: DEXTROSE (50%) 50ML SYRG IV PRN (01:45)
--- NOTE | 2020-03-30 02:16 | NUR ---
Telemetry admit from ER MEAGAN KITCHEN admitted to Telemetry unit after SBAR received. Patient oriented to BRIDGER HOLM, RN primary RN, unit, room, bed, and unit policies regarding patient care and visiting hours. Patient now on continuous telemetry monitoring, tele box # 62 and telemetry reading on arrival to unit is . Patient placed on bedside oxygen, weighed by bedscale and encouraged to call if they need something. All questions and concerns addressed, patient verbalized understanding.
[2020-03-30] MEDS: MORPHINE SULF INJ 2 MG/ML SYRINGE 1ML IV PRN ×4 (02:41→20:23)
--- NOTE | 2020-03-30 02:41 | NUR ---
Pain Patient c/o pain 10/10 to the right knee. pain medication administered.
--- NOTE | 2020-03-30 03:11 | NUR ---
RE Pain Patient resting with eyes closed, no sign of pain or distress.
[2020-03-30] MEDS: ACCU-CHEK COMFORT CURVE STRIP VI SCH ×3 (05:38→18:00)
[2020-03-30] MEDS: InsuLIN REG 1unit/0.01ml Soln (100units/ml) SC SCH ×3 (05:38→19:15)
[2020-03-30] MEDS: THROAT LOZENGES(CEPASTAT) MT PRN ×2 (05:39→10:54)
[2020-03-30 06:12] LABS: Hemoglobin 8.3 g/dL (13.5-17.5); Mean Corpuscular Hgb Conc. 31.3 g/dL (32.0-36.0)
[2020-03-30 06:18] LABS: Hematocrit 26.6 % (41.0-53.0); Mean Corpuscular Hemoglobin 25.3 pg (28.0-32.0); Mean Corpuscular Volume 80.9 fL (80.0-100.0); Platelet Count (auto) 285 10^3/uL (140-450); Red Blood Cells 3.29 10^6/uL (4.5-5.90); Red Cell Distribution Width 17.1 % (11.8-14.3); White Blood Cell 14.7 10^3/uL (4.4-10.8)
[2020-03-30 06:23] LABS: Albumin 2.3 g/dL (3.4-5.0); Calcium 8.3 mg/dL (8.5-10.1); Potassium 4.9 mmol/L (3.5-5.1)
[2020-03-30 06:27] LABS: BUN/Creatinine Ratio 28.6; Bilirubin, Total 0.9 mg/dL (0.2-1.0); Total Protein 5.6 g/dL (6.4-8.2)
[2020-03-30 06:48] LABS: Band Neutrophils % (manual) 0; Basophils % (manual) 0 (0.0-2.0); Blast Cells 0; Eosinophils % (manual) 0 (0-7); Metamyelocytes % 0; Myelocytes % 0; Promyelocytes % 0; Reactive Lymphocytes 0
[2020-03-30] MEDS: ALBUTEROL SULF HFA 90MCG INH 200DOSE IN SCH ×2 (06:58→14:12)
[2020-03-30 07:09] LABS: Lymphocytes % (manual) 13 (10.0-50.0); Monocytes % (manual) 7 (0-12)
--- NOTE | 2020-03-30 07:29 | NUR ---
RECEIVED PATIENT FROM [facility] SHIFT RN. AWAKE ALERT AND ORIENTED X4. BARBARA AMBROSE, REPORTS 8/10 PAIN ON RIGHT LEG, WILL MEDICATE PER eMAR. PLAN OF CARE DISCUSSED. BED IN LOW AND LOCKED POSITION WITH X2 RAILS UP. ENCOURAGED TO CALL FOR ASSISTANCE PRN. WILL CONTINUE TO MONITOR Q1HR AND PRN.
--- NOTE | 2020-03-30 07:34 | NUR ---
Closing Note Patient status not changed. Report given to dayshift nurse.
[2020-03-30] MEDS ORDERED: ENOXAPARIN SOD 150 MG/1 ML SYRINGE SC SCH (08:30)
[2020-03-30] MEDS: LOSARTAN POTASSIUM 50 MG TAB PO SCH (09:19)
[2020-03-30] MEDS: CALCIUM W/VIT D (600MG/400IU) TAB PO SCH (09:20)
[2020-03-30] MEDS: ATORVASTATIN 20 MG TAB PO SCH (09:20)
[2020-03-30] MEDS: ASPirin-EC 81 mg tab PO SCH (09:21)
[2020-03-30] MEDS: DOXYCYCLINE 100 MG TAB/CAP PO SCH ×2 (09:21→21:49)
[2020-03-30] MEDS ORDERED: ATENOLOL 50 MG TAB PO SCH (10:00)
[2020-03-30] MEDS ORDERED: ZINC SULFATE 220mg CAP or TAB PO SCH (10:00)
[2020-03-30] MEDS ORDERED: ENOXAPARIN SOD 40 MG/0.4 ML SYRINGE SC SCH (10:00)
[2020-03-30] MEDS ORDERED: ASCORBIC ACID 1,000 MG TAB PO SCH (10:00)
[2020-03-30] MEDS ORDERED: amLODIPine BESYLATE 5 MG TAB PO SCH (10:00)
[2020-03-30] MEDS ORDERED: CHOLECALCIFEROL (VITD3) 1,000UNIT=25mCg TAB PO SCH (10:00)
[2020-03-30] MEDS ORDERED: ALBUTEROL SULF 2.5 MG/0.5ML(0.5%) NEB SOLN NEB PRN (14:45)
[2020-03-30] MEDS ORDERED: IPRATROPIUM BROM 0.5 MG/2.5ML INH SOL NEB PRN (14:45)
--- NOTE | 2020-03-30 14:50 | NUR ---
RECEIVED A CALL FROM JOSE MARTIN WITH [facility] [phone], DISCUSSED TRANSFER PROCESS. UPDATES ON VITAL SIGNS AND MEDICATION PROVIDED. PER JOSE MARTIN, NO ACCEPTING DOCTOR AT THIS TIME.
[2020-03-30] MEDS ORDERED: PANT40TA2 PO (15:21)
[2020-03-30] MEDS ORDERED: AMIO200T33 PO (15:21)
[2020-03-30] MEDS ORDERED: LOSA25TA38 PO (15:21)
[2020-03-30] MEDS ORDERED: DABI150C5 PO (15:21)
[2020-03-30] MEDS ORDERED: AMLO-483 PO (15:21)
[2020-03-30] MEDS ORDERED: ATOR40TA52 PO (15:21)
[2020-03-30] MEDS ORDERED: FUROSEMIDE 40 MG/4 ML VIAL IV ONE (15:30)
--- NOTE | 2020-03-30 16:00 | NUR ---
PATIENT REFUSED, SAY "DO NOT NOT TAKE IT AT MY CURRENT CONDITION, IT HAS BEEN FOR YEARS" Addendum: 03/30/20 at 1721 by Carolina Malone RN PATIENT REFUSED LASIX AT 1600
--- NOTE | 2020-03-30 17:11 | NUR ---
1415 03/30/20 - Contacted by [facility] welfare case worker Yamilka who confirmed receipt of all faxed clincials to include the transfer order. Per Yamilka there are no beds in [facility] in [facility]. Yamilka provided verbal authorization pending receipt of hard copy authorization.
[2020-03-30] MEDS: ALBUTEROL SULF 2.5 MG/0.5ML(0.5%) NEB SOLN NEB SCH (19:07)
[2020-03-30] MEDS: IPRATROPIUM BROM 0.5 MG/2.5ML INH SOL NEB SCH (19:07)
[2020-03-30] MEDS: BUDESONIDE (INHALATION) 0.5 MG/2 ML NEB NEB SCH (19:08)
--- NOTE | 2020-03-30 19:50 | NUR ---
Opening Shift Note Assumed care of patient, awake and alert. No S/S of distress/SOB or pain. Instructed on POC and to call for assist PRN, will continue to monitor for changes Q1hr and PRN.
--- NOTE | 2020-03-30 20:23 | NUR ---
Pain Patient c/o pain 10/10 to right ankle, pain medication administered.
--- NOTE | 2020-03-30 20:30 | NUR ---
Wound Wound pictures taken and wound clean and wrapped.
--- NOTE | 2020-03-30 20:53 | NUR ---
RE Pain Patient resting with eyes closed, no sign of pain or distress.
[2020-03-30] MEDS: APIXABAN 5 MG TAB PO SCH (21:49)
[2020-03-31] MEDS: ACCU-CHEK COMFORT CURVE STRIP VI SCH ×4 (00:16→18:00)
[2020-03-31] MEDS: InsuLIN REG 1unit/0.01ml Soln (100units/ml) SC SCH ×4 (00:16→18:00)
[2020-03-31] MEDS: ALBUTEROL SULF 2.5 MG/0.5ML(0.5%) NEB SOLN NEB SCH ×4 (00:45→19:04)
[2020-03-31] MEDS: IPRATROPIUM BROM 0.5 MG/2.5ML INH SOL NEB SCH ×4 (00:45→19:04)
[2020-03-31 05:00] VITALS: BP 93/41
[2020-03-31] MEDS: MORPHINE SULF INJ 2 MG/ML SYRINGE 1ML IV PRN ×3 (05:00→19:58)
--- NOTE | 2020-03-31 05:00 | NUR ---
PAIN PATIENT C/O PAIN 10/10 TO RIGHT ANKLE, PAIN MEDICATION ADMINISTERED.
--- NOTE | 2020-03-31 05:30 | NUR ---
RE PAIN PATIENT RESTING WITH EYES CLOSED, NO SIGN OF PAIN OR DISTRESS.
[2020-03-31 05:58] LABS: Mean Corpuscular Volume 80.4 fL (80.0-100.0); White Blood Cell 14.8 10^3/uL (4.4-10.8)
[2020-03-31 06:00] LABS: Hematocrit 25.5 % (41.0-53.0); Hemoglobin 8.5 g/dL (13.5-17.5); Mean Corpuscular Hemoglobin 26.7 pg (28.0-32.0); Mean Corpuscular Hgb Conc. 33.2 g/dL (32.0-36.0); Platelet Count (auto) 266 10^3/uL (140-450); Red Blood Cells 3.17 10^6/uL (4.5-5.90); Red Cell Distribution Width 17.5 % (11.8-14.3)
--- NOTE | 2020-03-31 06:15 | NUR ---
Lining Change Patient voided on bed, lining change done.
[2020-03-31 06:21] LABS: Potassium 4.7 mmol/L (3.5-5.1)
[2020-03-31 06:23] LABS: Basophils % (manual) 0 (0.0-2.0); Blast Cells 0; Metamyelocytes % 0; Myelocytes % 0; Promyelocytes % 0; Reactive Lymphocytes 0
[2020-03-31 06:30] LABS: Albumin 2.1 g/dL (3.4-5.0); BUN/Creatinine Ratio 31.5; Calcium 7.9 mg/dL (8.5-10.1); Total Protein 5.4 g/dL (6.4-8.2)
[2020-03-31] MEDS: HYDROcodone-ACET 5/325MG TAB PO PRN ×2 (06:53→16:29)
[2020-03-31] MEDS: THROAT LOZENGES(CEPASTAT) MT PRN ×3 (06:53→21:14)
--- NOTE | 2020-03-31 07:28 | NUR ---
RECEIVED PATIENT FROM NOC SHIFT RN. AWAKE ALERT AND ORIENTED X4. BARBARA SOB, RECENTLY MEDICATED FOR PAIN ON RIGHT LEG. PLAN OF CARE DISCUSSED. BED IN LOW AND LOCKED POSITION WITH X2 RAILS UP. ENCOURAGED TO CALL FOR ASSISTANCE PRN. WILL CONTINUE TO MONITOR Q1HR AND PRN.
--- NOTE | 2020-03-31 07:29 | NUR ---
Closing Note Patient status not changed. Care endorsed given to dayshift RN.
[2020-03-31 08:00] VITALS: BP 116/37
[2020-03-31 08:29] LABS: Band Neutrophils % (manual) 4; Eosinophils % (manual) 1 (0-7); Lymphocytes % (manual) 17 (10.0-50.0); Monocytes % (manual) 3 (0-12)
[2020-03-31 08:43] VITALS: BP 116/37
[2020-03-31] MEDS: ASPirin-EC 81 mg tab PO SCH (09:19)
[2020-03-31] MEDS: APIXABAN 5 MG TAB PO SCH ×2 (09:19→21:14)
[2020-03-31] MEDS: ATORVASTATIN 20 MG TAB PO SCH (09:20)
[2020-03-31] MEDS: LOSARTAN POTASSIUM 50 MG TAB PO SCH (09:20)
[2020-03-31] MEDS: CALCIUM W/VIT D (600MG/400IU) TAB PO SCH (09:20)
[2020-03-31] MEDS: DOXYCYCLINE 100 MG TAB/CAP PO SCH ×2 (09:20→21:14)
[2020-03-31] MEDS: ALBUMIN 25% 100 ML IV SCH ×2 (09:30→18:52)
--- NOTE | 2020-03-31 09:48 | NUR ---
PATIENT IS COMPLAINING OF PAIN ON IV SITE WHEN FLUSHED. WILL ATTEMPT TO START A NEW IV FOR IV MEDICATIONS.
[2020-03-31] MEDS: FUROSEMIDE 40 MG/4 ML VIAL IV SCH (10:00)
--- NOTE | 2020-03-31 10:41 | NUR ---
1030 03/31/2020 - Contacted [facility] at [phone] regarding bed status and pending transfer for this patient. Spoke with info analyst Kathleen who stated that there are currently no beds available. She stated that they will f/u in 8- 12 hours or sooner if a bed becomes available. I called Mr Ortega to inform him of the bed status at [facility]. Mr Ortega is requesting to speak with a ed case manager at [facility].
--- NOTE | 2020-03-31 10:55 | NUR ---
PATIENT IS REFUSING TO INSERT NEW IV ACCESS AT THIS TIME.
--- NOTE | 2020-03-31 11:15 | NUR ---
WOUND CARE NOTE: IN TO SEE PATIENT AT THIS TIME PER WOUND CARE CONSULT REQUEST. PATIENT ADMITTED TO [facility] WITH DIAGNOSIS OF ACUTE/CHRONIC DIASTOLIC HEART FAILURE. CURRENT CHARITY SCORE IS 18. PATIENT IS AMBULATORY, CAN SELF TURN/REPOSITION SELF. PATIENT WAS NOTED UPON ADMIT TO HAVE SKIN INTEGRITY ISSUES TO RIGHT FOOT/ANKLE. WOUND PHOTO TAKEN, WOUND CONSULT ORDERED. PATIENT HAS A DISCHARGE ORDER TO TRANSFER TO [place] ONCE BED OPENS UP AT A [facility] FACILITY. PER PATIENT STATEMENT, HE UNDERWENT ORTHOPAEDIC SURGERY 16 YEARS AGO TO HIS RIGHT ANKLE. HE HAD MULTIPLE REVISIONS. RIGHT ANKLE HEALED WELL, BUT YESTERDAY, PATIENT FELL AT HOME, RENDERING HIM WITH RIGHT KNEE AND ANKLE PAIN. RIGHT KNEE IS EDEMATOUS, NO WOUND NOTED. RIGHT ANKLE HAS SURGICAL SCARS NOTED TO RIGHT MEDIAL, ANTERIOR AND LATERAL ANKLE AREAS. ALL SCARS ARE INTACT, PINK COLLAGEN NOTED. PATIENT HAS EDEMA AND ERYTHEMA NOTED TO BLE D/T HIS CARDIAC HISTORY. PATIENT ALSO HAS A SMALL 0.5 X 0.5 CM OPEN BLISTER TO THE RIGHT POSTERIOR HEEL. WOUND PHOTOS TAKEN OF ALL SKIN INTEGRITY ISSUES. APPLIED THERAHONEY, OPTIFOAM GENTLE DRESSING TO HEEL BLISTER. ALL OTHER SCARS LEFT OPEN TO AIR. ELEVATED BLE UP ON PILLOWS FOR EDEMA CONTROL. RECOMMEND: EOD/PRN DRESSING CHANGE TO RIGHT HEEL WOUND, ELEVATION OF BLE WHEN IN BED, SKIN/WOUND CARE PLAN. NO FURTHER WOUND CARE IS NEEDED AT THIS TIME. Addendum: 03/31/20 at 1757 by Sylvia Villafana RN Amended: Links added.
[2020-03-31] MEDS: BUDESONIDE (INHALATION) 0.5 MG/2 ML NEB NEB SCH ×2 (12:34→19:03)
[2020-03-31 12:43] VITALS: BP 103/71
--- NOTE | 2020-03-31 12:55 | NUR ---
Spoke to Dr Pérez about patient's refusal to insert new IV for IV administration. Dr. Pérez ordered for Midline placement.
--- NOTE | 2020-03-31 13:00 | NUR ---
Patient informed about Midline option for IV meds since he is refusing new peripheral IV. Patient is currently refusing midline placement.
[2020-03-31 17:08] VITALS: BP 106/54
--- NOTE | 2020-03-31 17:41 | NUR ---
new iv access 22g to left upper arm established. Will resumed scheduled medication.
--- NOTE | 2020-03-31 20:00 | NUR ---
Opening Shift Note Assumed care of patient. Awake, alert and oriented x4. No S/S of distress or SOB. Patient reporting generalized pain in his right leg 8/10. Will medicate for pain as ordered. Patient is on 6L NC with even and unlabored respirations. Instructed on POC and to call for assist PRN. Bed locked, in lowest position, call light within reach, side rails up x2. Will continue to monitor for changes Q1hr and PRN.
[2020-03-31 22:00] VITALS: BP 118/62
--- NOTE | 2020-04-01 00:05 | NUR ---
Hospitalist paged Patient is requesting something for heartburn and gas. Will continue with care
[2020-04-01] MEDS: InsuLIN REG 1unit/0.01ml Soln (100units/ml) SC SCH ×5 (00:24→23:20)
[2020-04-01] MEDS: ACCU-CHEK COMFORT CURVE STRIP VI SCH ×4 (00:24→18:14)
[2020-04-01] MEDS: IPRATROPIUM BROM 0.5 MG/2.5ML INH SOL NEB SCH ×5 (00:25→23:51)
[2020-04-01] MEDS: ALBUTEROL SULF 2.5 MG/0.5ML(0.5%) NEB SOLN NEB SCH ×5 (00:25→23:50)
--- NOTE | 2020-04-01 00:45 | NUR ---
Call back from hospitalist New orders received. Will continue with care
[2020-04-01] MEDS: ALBUMIN 25% 100 ML IV SCH (01:13)
[2020-04-01] MEDS: MORPHINE SULF INJ 2 MG/ML SYRINGE 1ML IV PRN ×4 (04:28→20:10)
[2020-04-01 05:00] VITALS: BP 132/52
[2020-04-01] MEDS: BUDESONIDE (INHALATION) 0.5 MG/2 ML NEB NEB SCH ×2 (06:35→19:52)
[2020-04-01] MEDS: LORazepam 0.5 MG TAB PO PRN ×2 (07:36→22:23)
--- NOTE | 2020-04-01 07:41 | NUR ---
Patient reporting increased anxiety Given Ativan PO. Will continue to monitor
--- NOTE | 2020-04-01 07:44 | NUR ---
Closing shift note Patient resting in bed. 6L NC in place, no S/S of distress or pain noted at this time
[2020-04-01 09:00] VITALS: BP 121/73
[2020-04-01] MEDS: FUROSEMIDE 40 MG/4 ML VIAL IV SCH ×3 (10:00→18:00)
[2020-04-01] MEDS: APIXABAN 5 MG TAB PO SCH ×2 (10:03→21:18)
[2020-04-01] MEDS: ASPirin-EC 81 mg tab PO SCH (10:03)
[2020-04-01] MEDS: ATORVASTATIN 20 MG TAB PO SCH (10:04)
[2020-04-01] MEDS: DOXYCYCLINE 100 MG TAB/CAP PO SCH ×2 (10:04→21:18)
[2020-04-01] MEDS: CALCIUM W/VIT D (600MG/400IU) TAB PO SCH (10:04)
[2020-04-01] MEDS: LOSARTAN POTASSIUM 50 MG TAB PO SCH (10:05)
--- NOTE | 2020-04-01 10:15 | NUR ---
PAGED RT REGARDING PATIENTS COMPLAINTS OF SOB. RT AT BEDSIDE.
--- NOTE | 2020-04-01 10:36 | NUR ---
PATIENT ON 15L OXYMIZER. NO S/S OF DISTRESS NOTED. INFORMED Emely FUCHS.
[2020-04-01 13:36] VITALS: BP 128/67
--- NOTE | 2020-04-01 14:25 | NUR ---
PATIENT TITRATED DOWN TO 10LITERS OXYMIZER. PATIENT NOT TOLERATING WELL. PLACED BACK ON 15L OXYMIZER.
--- NOTE | 2020-04-01 16:12 | NUR ---
PATIENT REFUSING VERA CATHETER. Emely FUCHS AWARE. Emely FUCHS AT BEDSIDE TO EXPLAIN RISK VS BENEFIT. PATIENT CONTINUING TO REFUSE.
--- NOTE | 2020-04-01 16:31 | NUR ---
Emely FUCHS AWARE OF ABG RESULTS.
[2020-04-01 17:00] VITALS: BP 94/58
[2020-04-01] MEDS: THROAT LOZENGES(CEPASTAT) MT PRN (18:15)
[2020-04-01] MEDS: ALUM & MAG HYDROX-SIMETH LIQ(MAALOX) 30 ML PO PRN (18:15)
--- NOTE | 2020-04-01 18:54 | NUR ---
PATIENT TRANSFERRED TO [facility] ON TELE MONITORING. PATIENT ON 15L OXYMIZER. PATIENT DENIES SOB AT THIS TIME. REPORT GIVEN TO [facility] RN. PATIENT REFUSING LASIX. INSTRUCTED ON IMPORTANCE OF MEDICATION, CONTINUING TO REFUSE. [facility] NURSE AWARE.
--- NOTE | 2020-04-01 18:55 | NUR ---
OPENING NOTE PATIENT ARRIVED IN UNIT FROM 290 TELEMETRY FLOOR. PATIENT AOX4 FOLLOWING COMMANDS, COMPLAINTS OF PAIN TO THE RIGHT FOOT ANKLE AREA 8/10. ON OXYMIZER 15L STATING >95% SPO2 ON BEDSIDE MONITOR, NO COMPLAINTS OF SOB. AFIB ON PAINTER SET 60'S, BP 138/54, PATIENT REFUSING LASIX AND VERA AT THIS TIME. EDUCATED PATIENT ON IMPORTANCE OF MEDICATIONS AND UPDATED ON PLAN OF CARE. ALL QUESTIONS ADDRESSED AT THIS TIME. BED LOCKED AND IN LOWEST POSITION.
--- NOTE | 2020-04-01 18:56 | NUR ---
1728 04/01/20 - Contacted [facility] at [phone], requesting authorization for continued inpatient stay. Per credit review analyst Kati no beds available to transfer any patients. Authorization for continued inpatient stay approved x 24 hours. Will reassess bed situation tomorrow.
[2020-04-01 19:57] VITALS: BP 136/116
[2020-04-01 20:00] VITALS: BP 131/51
--- NOTE | 2020-04-01 21:50 | NUR ---
SPECIALITY MATTRESS PLACED PATIENT ON NEW MATTRESS, REASSESS PATIENT SKIN AND NO NEW BREAK DOWN NOTED. TOLERATED TRANSFER WELL.
[2020-04-01] MEDS: HYDROcodone-ACET 5/325MG TAB PO PRN (22:22)
[2020-04-01] MEDS: TEMAZEPAM 15 MG CAP PO PRN (22:22)
[2020-04-02 00:13] VITALS: BP 118/46
[2020-04-02 03:51] LABS: Basophils # (auto) 0 10 ^3/uL (0-0.2); Basophils % (auto) 0.3 % (0.0-2.0); Eosinophils # (auto) 0.2 10 ^3/uL (0-0.8); Hematocrit 22.8 % (41.0-53.0); Hemoglobin 7.2 g/dL (13.5-17.5); Lymphocytes # (auto) 1.3 10 ^3/uL (0.4-5.4); Mean Corpuscular Hgb Conc. 31.4 g/dL (32.0-36.0); Neutrophils # (auto) 9.4 10 ^3/uL (1.6-8.6)
[2020-04-02 03:53] LABS: Eosinophils % (auto) 1.4 % (0.0-7.0); Lymphocytes % (auto) 11.3 % (10.0-50.0); Mean Corpuscular Hemoglobin 25.2 pg (28.0-32.0); Mean Corpuscular Volume 80.3 fL (80.0-100.0); Monocytes # (auto) 0.7 10 ^3/uL (0-1.3); Monocytes % (auto) 6.2 % (0.0-12.0); Neutrophils % (auto) 80.8 % (37.0-80.0); Nucleated Red Blood Cells % 0.2 %; Platelet Count (auto) 220 10^3/uL (140-450); Red Blood Cells 2.84 10^6/uL (4.5-5.90); Red Cell Distribution Width 17.3 % (11.8-14.3); White Blood Cell 11.7 10^3/uL (4.4-10.8)
[2020-04-02 04:00] VITALS: BP 105/37
[2020-04-02 04:09] LABS: Albumin 2.4 g/dL (3.4-5.0); Calcium 7.9 mg/dL (8.5-10.1); Potassium 4.5 mmol/L (3.5-5.1)
[2020-04-02 04:12] LABS: Bilirubin, Total 1.1 mg/dL (0.2-1.0); Total Protein 5.6 g/dL (6.4-8.2)
[2020-04-02] MEDS: MORPHINE SULF INJ 2 MG/ML SYRINGE 1ML IV PRN ×4 (05:12→23:10)
[2020-04-02] MEDS: FUROSEMIDE 40 MG/4 ML VIAL IV SCH (05:13)
[2020-04-02] MEDS: InsuLIN REG 1unit/0.01ml Soln (100units/ml) SC SCH ×3 (05:15→19:02)
[2020-04-02] MEDS: ACCU-CHEK COMFORT CURVE STRIP VI SCH ×5 (05:26→23:39)
[2020-04-02] MEDS: ALUM & MAG HYDROX-SIMETH LIQ(MAALOX) 30 ML PO PRN (05:50)
[2020-04-02] MEDS: THROAT LOZENGES(CEPASTAT) MT PRN ×2 (06:27→20:46)
[2020-04-02] MEDS: IPRATROPIUM BROM 0.5 MG/2.5ML INH SOL NEB SCH ×3 (07:33→18:36)
[2020-04-02] MEDS: BUDESONIDE (INHALATION) 0.5 MG/2 ML NEB NEB SCH ×2 (07:33→18:36)
[2020-04-02] MEDS: ALBUTEROL SULF 2.5 MG/0.5ML(0.5%) NEB SOLN NEB SCH ×3 (07:33→18:36)
[2020-04-02] MEDS: HYDROcodone-ACET 5/325MG TAB PO PRN ×2 (07:55→15:24)
[2020-04-02 08:00] VITALS: BP 142/68
--- NOTE | 2020-04-02 10:00 | NUR ---
DR FUCHS AT BEDSIDE DISCUSSED PATIENTS STATUS AND PLAN OF CARE. IMPORTANCE OF TAKING PRESCRIBED MEDICATIONS REVIEWED. PATIENT STATES HE WOULD TRY
[2020-04-02] MEDS ORDERED: metOLazone 5 MG TAB PO ONE (10:15)
--- NOTE | 2020-04-02 10:20 | NUR ---
PATIENT CONTINUE TO REFUSES DIURETIC PATIENTS DISCUSSED IMPORTANCE WITH DR FUCHS REGARDING TAKING LASIX (REFUSED DOSE PREVIOUSLY) WHEN RN SPOKE WITH PATIENT AFTER DR FUCHS, PATIENT CHANGED MIND AGAIN AND IS REFUSING LASIX. STATES WILL TAKE NEW PO MED DR FUCHS ORDERED THAT IS A MILDER DIURETIC. RN RE-EDUCATION PATIENT IMPORTANCE BEHIND TAKING MEDICATIONS THAT MD ORDER. PATIENT VERBALIZED UNDERSTANDING BUT STILL REFUSED TO TAKE LASIX.
[2020-04-02] MEDS: ASPirin-EC 81 mg tab PO SCH (10:51)
[2020-04-02] MEDS: LOSARTAN POTASSIUM 50 MG TAB PO SCH (10:51)
[2020-04-02] MEDS: APIXABAN 5 MG TAB PO SCH ×2 (10:51→21:50)
[2020-04-02] MEDS: DOXYCYCLINE 100 MG TAB/CAP PO SCH ×2 (10:51→21:50)
[2020-04-02] MEDS: CALCIUM W/VIT D (600MG/400IU) TAB PO SCH (10:51)
[2020-04-02] MEDS: ATORVASTATIN 20 MG TAB PO SCH (10:51)
--- NOTE | 2020-04-02 11:04 | NUR ---
DR HOLT AT BEDSIDE DISCUSSED PATIENTS STATUS AND PLAN OF CARE WITH PATIENT. RE-EDUCATED IMPORTANCE OF TAKING PRESCRIBED MEDICATION.
[2020-04-02 11:46] VITALS: BP 106/34
--- NOTE | 2020-04-02 12:42 | NUR ---
Est energy needs 3431-5389 kcal (11-14 kcal/kg BW 138.1kg) Est protein needs 70-84g (1-1.2g/kg IBW 70kg) Will reassess prn. Addendum: 04/02/20 at [address] Amended: Links added.
--- NOTE | 2020-04-02 12:49 | NUR ---
Respiratory note: SCHEDULED 1200 MEDNEB TX HELD, PT SAID HE WILL NOT TAKE THE TX UNTIL HE IS DONE EATING LUNCH. HR 69, RR 26, SPO2 95% ON 10LPM OXYMIZER. NO S/S OF RESPIRATORY DISTRESS NOTED. WILL RETURN AT A LATER TIME.
--- NOTE | 2020-04-02 13:51 | NUR ---
Respiratory note: RETURNED AT THIS TIME TO RE-ASSESS PT, HR 60, RR 20, SPO2 96% ON 10LPM OXYMIZER, NO S/S OF RESPIRATORY DISTRESS NOTED. MEDNEB TX NOT INDICATED.
[2020-04-02 15:55] VITALS: BP 92/60
--- NOTE | 2020-04-02 19:00 | NUR ---
Opening notes Assumed care, awake, not in distress, on Oxymizer @ 8 L/min, sat 90%, occasional coughing notes, PIV patent and intact. Bed in lowest position with side rails up, bed alarm on. Encouraged to call if he needs something.
[2020-04-02 20:00] VITALS: BP 96/45
--- NOTE | 2020-04-02 20:15 | NUR ---
Refused new IV access, left upper arm IV still flushing and pt reported his IV access is not painful when flushed
--- NOTE | 2020-04-02 22:00 | NUR ---
Pt verbalized, " I can't breathe, there's no air coming in" and requested to increase O2 level, oxymizer increased to 10L/min, sat 92%
--- NOTE | 2020-04-02 22:10 | NUR ---
Urine incontinence noted, cleaned pt and changed linens and gown.
[2020-04-03] VITALS: BP 113/50
[2020-04-03] MEDS: IPRATROPIUM BROM 0.5 MG/2.5ML INH SOL NEB SCH ×4 (00:09→18:56)
[2020-04-03] MEDS: ALBUTEROL SULF 2.5 MG/0.5ML(0.5%) NEB SOLN NEB SCH ×4 (00:09→18:57)
[2020-04-03] MEDS: InsuLIN REG 1unit/0.01ml Soln (100units/ml) SC SCH ×4 (00:11→17:38)
[2020-04-03 04:44] LABS: Hemoglobin 7.4 g/dL (13.5-17.5)
[2020-04-03 04:46] LABS: Hematocrit 22.9 % (41.0-53.0)
[2020-04-03 04:57] LABS: Potassium 4.2 mmol/L (3.5-5.1)
[2020-04-03 05:02] LABS: BUN/Creatinine Ratio 23.8; Calcium 7.9 mg/dL (8.5-10.1)
--- NOTE | 2020-04-03 05:30 | NUR ---
Urine incontinence Urine incontinence noted, cleansed and kept dry and comfortable, linens and gown changed.
[2020-04-03] MEDS: ACCU-CHEK COMFORT CURVE STRIP VI SCH ×3 (05:55→17:38)
[2020-04-03] MEDS: MORPHINE SULF INJ 2 MG/ML SYRINGE 1ML IV PRN ×4 (05:56→23:45)
[2020-04-03 06:00] VITALS: BP 108/31
--- NOTE | 2020-04-03 06:30 | NUR ---
Status update resting on bed with his eyes closed, oxymizer titrated down to 8L/min, sat 97-99%
[2020-04-03 08:00] VITALS: BP 131/98
[2020-04-03] MEDS ORDERED: VANCOMYCIN PER PHARMACY 0 MG IV SCH (08:15)
[2020-04-03] MEDS ORDERED: cefTRIAXone 1GM/50ML D5W 50 ML IV SCH (09:00)
[2020-04-03] MEDS: VANCOMYCIN 1GM/250ML 250 ML IV SCH ×2 (09:37→16:41)
[2020-04-03] MEDS: APIXABAN 5 MG TAB PO SCH ×2 (09:37→22:27)
[2020-04-03] MEDS: ASPirin-EC 81 mg tab PO SCH (09:38)
[2020-04-03] MEDS: CALCIUM W/VIT D (600MG/400IU) TAB PO SCH (09:38)
[2020-04-03] MEDS: LOSARTAN POTASSIUM 50 MG TAB PO SCH (09:38)
[2020-04-03] MEDS: metOLazone 5 MG TAB PO SCH (09:39)
[2020-04-03] MEDS: FUROSEMIDE 100 MG/10ML VIAL IV SCH (10:00)
--- NOTE | 2020-04-03 10:00 | NUR ---
DR. FUCHS Provider/Hospitalist at bedside. NEW ORDERS RECEIVED.
--- NOTE | 2020-04-03 11:33 | NUR ---
PT. REPORTING PAIN IN RT. FT./ANKLE 8 ON A SCALE OF 0-10, MOANING OUT LOAD WITH FACIAL GRIMACING. MED. PT. WITH MORPHINE 2MG. IVP.
[2020-04-03] MEDS: PIPERACILLIN-TAZO 4.5GM 100 ML IV SCH ×2 (11:52→18:17)
[2020-04-03] MEDS: BUDESONIDE (INHALATION) 0.5 MG/2 ML NEB NEB SCH ×2 (11:55→18:57)
[2020-04-03 12:00] VITALS: BP 135/106
--- NOTE | 2020-04-03 12:00 | NUR ---
PAIN HAS DECREASED TO A 2.
--- NOTE | 2020-04-03 14:00 | NUR ---
[facility] CALLED. GAVE UPDATE ON PT.
[2020-04-03 16:00] VITALS: BP 125/102
--- NOTE | 2020-04-03 16:00 | NUR ---
PT. INCONTINENT OF URINE LG. AMOUNT ALL OVER LINENS AND GOWN. PERICARE DONE AND GOWN AND LINENS CHANGED.
--- NOTE | 2020-04-03 16:50 | NUR ---
DR. LANDRUM Provider/Hospitalist at bedside. GAVE UPDATE ON PT.
--- NOTE | 2020-04-03 18:37 | NUR ---
PT. HAVING PAIN RT. FT./ANKLE 9 ON A SCALE OF 0-10. MED. WITH MORPHINE 2MG. IVP.
--- NOTE | 2020-04-03 19:40 | NUR ---
OPENING NOTE REPORT RECEIVED FROM DENISSE CLEMONS PATIENT IS A/OX4, CONNECTED TO CONTINUOUS MONITORS, HEART RATE IN 70'S, SPO2 AT 95%. PATIENT IS ON 10L OXYMIZER AND TOLERATING WELL. NO SOB OR DISTRESS AT THIS TIME. PHYSICAL ASSESSMENT DONE-SEE INTERVENTIONS. IV TO LEFT UPPER ARM 22G INTACT AND PATENT. PATIENT IS ON AIR MATTRESS, ABLE TO TURN AND REPOSITION NEEDED. PATIENT WAS DOWN GRADED TO TELE STATUS, AWAITING BED AVAILABILITY. THIS IS ALSO A [place] PATIENT-AWAITING BED IN [place] FOR TRANSFER, OF NOW, NO BEDS AVAILABLE. POC DISCUSSED WITH PATIENT, ALL QUESTIONS ANSWERED. CALL LIGHT WITHIN REACH.
[2020-04-03 20:00] VITALS: BP 125/102
[2020-04-03] MEDS: HYDROcodone-ACET 5/325MG TAB PO PRN (20:14)
[2020-04-03] MEDS: THROAT LOZENGES(CEPASTAT) MT PRN (20:15)
[2020-04-03] MEDS: ATORVASTATIN 20 MG TAB PO SCH (22:27)
--- NOTE | 2020-04-03 23:11 | NUR ---
REPORT CALLED TO DEONTE VAZQUEZ GIVEN, ALL QUESTIONS ANSWERED. WILL TRANSFER PATIENT TO ROOM 292A.
--- NOTE | 2020-04-03 23:40 | NUR ---
TRANSFER TO FLOOR PATIENT TAKEN TO TELE FLOOR ROOM 292A WITH ALL PERSONAL BELONGINGS AND TELE MONITOR ON AND PORTABLE O2 AT 10L OXYMIZER. PATIENT TRANSFERRED ON AIR MATTRESS. NO DISTRESS AT TIME OF TRANSFER. DEONTE MULLEN MADE AWARE OF PATIENTS ARRIVAL.
--- NOTE | 2020-04-03 23:45 | NUR ---
TRANSFERRED TO [facility] FROM [facility] transferred to Telemetry unit after SBAR received. Patient oriented to Darrel De Luna, primary RN, unit, room, bed, and unit policies regarding patient care and visiting hours. Patient now on continuous telemetry monitoring, tele box #60 and telemetry reading on arrival to unit is Afib 60. Patient placed on bedside oxymizer at 10 L and weighed by bedscale. Vitals: BP 112/41, HR 70, RR 19, O2 93%, Temp 99.3% The patient reports 8/10 right ankle pain and requested pain medication. Will treat with PRN morphine. Encouraged to call if they need something. All questions and concerns addressed, patient verbalized understanding.
--- NOTE | 2020-04-03 23:45 | NUR ---
PAIN ASSESSMENT The patient reports having 8/10 right ankle pain and requested pain medication. Will treat with PRN morphine.
[2020-04-04] MEDS: IPRATROPIUM BROM 0.5 MG/2.5ML INH SOL NEB SCH ×4 (00:06→18:52)
[2020-04-04] MEDS: ALBUTEROL SULF 2.5 MG/0.5ML(0.5%) NEB SOLN NEB SCH ×4 (00:06→18:52)
[2020-04-04] MEDS: VANCOMYCIN 1GM/250ML 250 ML IV SCH ×3 (01:00→18:02)
[2020-04-04 05:35] LABS: Albumin 2.2 g/dL (3.4-5.0); Potassium 3.8 mmol/L (3.5-5.1)
[2020-04-04 05:39] LABS: BUN/Creatinine Ratio 17.3; Bilirubin, Total 1.2 mg/dL (0.2-1.0); Total Protein 5.7 g/dL (6.4-8.2)
[2020-04-04 05:44] VITALS: BP 102/46
[2020-04-04] MEDS: InsuLIN REG 1unit/0.01ml Soln (100units/ml) SC SCH ×4 (06:00→18:07)
[2020-04-04] MEDS: PIPERACILLIN-TAZO 4.5GM 100 ML IV SCH ×5 (06:00→21:55)
[2020-04-04] MEDS: ACCU-CHEK COMFORT CURVE STRIP VI SCH ×4 (06:00→18:02)
[2020-04-04] MEDS: BUDESONIDE (INHALATION) 0.5 MG/2 ML NEB NEB SCH ×2 (07:45→18:52)
--- NOTE | 2020-04-04 08:06 | NUR ---
OPENING SHIFT NOTE Assumed care of patient. Awake, alert and oriented x4. No S/S of distress or SOB. Patient reporting chronic pain in his right leg 05/10. Will medicate for pain as ordered. Patient is on 10L via Oxymizer with even and unlabored respirations. Instructed on POC and to call for assist PRN. Bed locked, in lowest position, call light within reach, side rails up x2. Will continue to monitor for changes Q1hr and PRN.
[2020-04-04] MEDS: MORPHINE SULF INJ 2 MG/ML SYRINGE 1ML IV PRN ×2 (09:05→17:35)
[2020-04-04] MEDS: FUROSEMIDE 100 MG/10ML VIAL IV SCH (09:05)
[2020-04-04] MEDS: metOLazone 5 MG TAB PO SCH (09:06)
[2020-04-04] MEDS: LOSARTAN POTASSIUM 50 MG TAB PO SCH (09:08)
[2020-04-04] MEDS: ASPirin-EC 81 mg tab PO SCH (09:09)
[2020-04-04] MEDS: CALCIUM W/VIT D (600MG/400IU) TAB PO SCH (09:10)
[2020-04-04] MEDS: APIXABAN 5 MG TAB PO SCH ×2 (09:10→21:54)
[2020-04-04 09:13] VITALS: BP 105/57
--- NOTE | 2020-04-04 15:34 | NUR ---
PT O2 SET AT 8L VIA OXYMIZER PER MD INSTRUCTIONS. PT C/O SOB WITH O2 SAT 95%. PT REQUESTED O2 BE SET BACK. OR NOW AT 10L.
--- NOTE | 2020-04-04 19:22 | NUR ---
Openning note Assumed care of patient. Patient alert and orientated x4. No sob or distress noted. Patient on 10L oxymizer. Saturation at 97%. POC reviewed. Patient verbalizes understanding. Bed locked in lowest position. Side rails up x2. Call light within reach. Will continue to monitor.
[2020-04-04] MEDS: THROAT LOZENGES(CEPASTAT) MT PRN (20:10)
[2020-04-04 21:42] VITALS: BP 105/57
[2020-04-04] MEDS: ATORVASTATIN 20 MG TAB PO SCH (21:55)
[2020-04-04 22:00] VITALS: BP 100/38
[2020-04-04] MEDS: HYDROcodone-ACET 5/325MG TAB PO PRN (22:07)
--- NOTE | 2020-04-04 22:07 | NUR ---
pain Patient states pain 6/10 on right foot. Will medicate per md orders.
--- NOTE | 2020-04-05 | NUR ---
Patient woke up screaming for help. Patient was very confused, wanting to leave. patient was reoriented, sat on the side of the bed, couldn't get comfortable. O2 check 100% on Oxymizer. Patient requested to be sited on the side of he was more comfortable. Requested to be on a chair.
[2020-04-05] MEDS: ACCU-CHEK COMFORT CURVE STRIP VI SCH ×4 (00:09→17:59)
--- NOTE | 2020-04-05 00:10 | NUR ---
Respiratory note: PT REFUSING SCHED MED NEB TX AT THIS TIME. PT STATES HE IS TIRED AND JUST WANTS TO REST. NO S/S OF SOB OR RESPIRATORY DISTRESS. WILL CONT TO MONITOR.
[2020-04-05] MEDS: InsuLIN REG 1unit/0.01ml Soln (100units/ml) SC SCH ×4 (00:12→18:00)
[2020-04-05] MEDS: VANCOMYCIN 1GM/250ML 250 ML IV SCH ×4 (00:32→20:48)
[2020-04-05] MEDS: ALBUTEROL SULF 2.5 MG/0.5ML(0.5%) NEB SOLN NEB SCH ×4 (00:33→18:01)
[2020-04-05] MEDS: IPRATROPIUM BROM 0.5 MG/2.5ML INH SOL NEB SCH ×4 (00:33→18:01)
[2020-04-05] MEDS: MORPHINE SULF INJ 2 MG/ML SYRINGE 1ML IV PRN ×3 (02:50→21:15)
--- NOTE | 2020-04-05 02:55 | NUR ---
Pain Patient states pain 8/10. On right foot. will medicate per md orders. Will reassess and continue to monitor patient.
[2020-04-05 05:44] VITALS: BP 108/45
[2020-04-05] MEDS: PIPERACILLIN-TAZO 4.5GM 100 ML IV SCH ×3 (05:47→18:23)
[2020-04-05] MEDS: BUDESONIDE (INHALATION) 0.5 MG/2 ML NEB NEB SCH ×2 (07:26→18:02)
--- NOTE | 2020-04-05 07:26 | NUR ---
Closing note Patient Asleep in bed. Chest evenly rising. No distress noted. PT on oxymizer 10L. Saturation 96%
[2020-04-05] MEDS: LOSARTAN POTASSIUM 50 MG TAB PO SCH (08:58)
[2020-04-05] MEDS: FUROSEMIDE 100 MG/10ML VIAL IV SCH (08:58)
[2020-04-05] MEDS: metOLazone 5 MG TAB PO SCH (08:59)
[2020-04-05] MEDS: APIXABAN 5 MG TAB PO SCH ×2 (08:59→20:48)
[2020-04-05] MEDS: ASPirin-EC 81 mg tab PO SCH (08:59)
[2020-04-05] MEDS: CALCIUM W/VIT D (600MG/400IU) TAB PO SCH (08:59)
[2020-04-05 09:00] VITALS: BP 120/70
--- NOTE | 2020-04-05 12:17 | NUR ---
Nutrition Followup Note Wt 133.8kg Pt was alert and oriented at time of rounds. Pt reports appetite is good. Pt with inadequate oral intake aeb pt with avg po intake of 70% x 3 days. Est energy needs 8171-9604 kcal (11-14 kcal/kg BW 138.1kg) Est protein needs 70-84g (1-1.2g/kg IBW 70kg) Will reassess prn. Labs: Gluc 128H, BUn 19H, Alb 2.2L BM: 1 BM 7/5 per pt, last recorded BM 7/1 per RN note Skin: BS 18 low risk, full details in cattle care worker doc PES: Obesity r/t caloric intake in excess of needs aeb pt with BMI of 46.3kg/m2 Comments 1) Continue to monitor po intake, labs, skin 2) Refer pt to [facility] on DC 3) Continue current plan of care Expected Outcomes/Goals: 1) Po intake >75% 2) Pt to maintain wt while hospitalized 3) F/u 3-5 days
[2020-04-05 13:00] VITALS: BP 126/60
[2020-04-05 17:00] VITALS: BP 86/32
--- NOTE | 2020-04-05 19:00 | NUR ---
Opening note Patient awake, alert, Nos signs of distress. Patient C/O pain. Unlabored breathing, Instructed patient on POC. Head of the bed elevated, patient on Oxymizer @10 LPM. Will continue to monittor. Bed on lowest position, side rails up for safety.
--- NOTE | 2020-04-05 19:26 | NUR ---
1825 04/05/20 - Contacted [facility] at [phone] requesting update on transfer of this patient and/or authorization for continued inpatient stay. Per search analyst Fernanda, there are no beds available at this time. Patient's continued inpatient stay has been authorized for today.
[2020-04-05] MEDS: HYDROcodone-ACET 5/325MG TAB PO PRN (20:49)
[2020-04-05] MEDS: ATORVASTATIN 20 MG TAB PO SCH (20:49)
--- NOTE | 2020-04-05 21:30 | NUR ---
Medicated for pain
[2020-04-05 22:00] VITALS: BP 92/58
[2020-04-05] MEDS: TEMAZEPAM 15 MG CAP PO PRN (22:22)
--- NOTE | 2020-04-06 | NUR ---
Respiratory note: PT REFUSING SCHEDULED MED NEB TX AT THIS TIME. PT STATES HE IS TIRED AND JUST WANTS TO REST. NO S/S OF SOB OR RESPIRATORY DISTRESS. WILL CONT TO MONITOR.
[2020-04-06] MEDS: ACCU-CHEK COMFORT CURVE STRIP VI SCH ×4 (01:48→18:06)
--- NOTE | 2020-04-06 02:37 | NUR ---
Patient requested to be put back in bed. Tolerated well. he asked for coffe, as well.
[2020-04-06] MEDS: PIPERACILLIN-TAZO 4.5GM 100 ML IV SCH ×4 (02:54→18:05)
[2020-04-06] MEDS: VANCOMYCIN 1GM/250ML 250 ML IV SCH ×2 (05:29→13:00)
[2020-04-06] MEDS: InsuLIN REG 1unit/0.01ml Soln (100units/ml) SC SCH ×4 (05:30→18:00)
[2020-04-06 05:47] VITALS: BP 107/38
[2020-04-06 07:17] LABS: Basophils # (auto) 0 10 ^3/uL (0-0.2); Hemoglobin 7.6 g/dL (13.5-17.5)
[2020-04-06 07:20] LABS: Basophils % (auto) 0.6 % (0.0-2.0); Eosinophils # (auto) 0.3 10 ^3/uL (0-0.8); Eosinophils % (auto) 3.9 % (0.0-7.0); Hematocrit 23.2 % (41.0-53.0); Lymphocytes # (auto) 0.7 10 ^3/uL (0.4-5.4); Lymphocytes % (auto) 10.2 % (10.0-50.0); Mean Corpuscular Hemoglobin 25.8 pg (28.0-32.0); Mean Corpuscular Hgb Conc. 32.8 g/dL (32.0-36.0); Mean Corpuscular Volume 78.6 fL (80.0-100.0); Monocytes # (auto) 0.6 10 ^3/uL (0-1.3); Monocytes % (auto) 8.6 % (0.0-12.0); Neutrophils # (auto) 5.4 10 ^3/uL (1.6-8.6); Neutrophils % (auto) 76.7 % (37.0-80.0); Nucleated Red Blood Cells % 0.1 %; Platelet Count (auto) 236 10^3/uL (140-450); Red Blood Cells 2.95 10^6/uL (4.5-5.90); Red Cell Distribution Width 17.7 % (11.8-14.3); White Blood Cell 7.1 10^3/uL (4.4-10.8)
[2020-04-06] MEDS: IPRATROPIUM BROM 0.5 MG/2.5ML INH SOL NEB SCH ×4 (07:34→19:02)
[2020-04-06] MEDS: ALBUTEROL SULF 2.5 MG/0.5ML(0.5%) NEB SOLN NEB SCH ×4 (07:34→19:02)
[2020-04-06] MEDS: BUDESONIDE (INHALATION) 0.5 MG/2 ML NEB NEB SCH ×2 (07:35→19:02)
[2020-04-06 07:46] LABS: Calcium 8.1 mg/dL (8.5-10.1); Potassium 3.1 mmol/L (3.5-5.1)
[2020-04-06 07:48] LABS: BUN/Creatinine Ratio 17.4
--- NOTE | 2020-04-06 08:53 | NUR ---
ASSESSMENT COST ACCOUNTANT SPOKE WITH PT PER INITIAL ASSESSMENT. PT IS A 74 YR OLD MALE ADMITTED FOR CHF. HE HAS A HX OF AFIB, CAD, M.I. COPD. PT WAS A/A/OX4, RECEPTIVE TO SS VISIT, EUTHYMIC MOOD WITH CONGRUENT AFFECT. PT'S PCP IS DR. BRENNAN AT [facility]. PT WAS INDEPENDENT WITH ADL'S PRIOR TO ADMISSION. PT RESIDES ALONE BUT HIS SISTER BOB [phone] IS HIS [facility] [place] CAREGIVER AND IS THERE ALMOST NONPROFIT MANAGER. SHE RAISED PT AND IS VERY SUPPORTIVE. PT HAS AN AHCD. HE DOES NOT HAVE DME. PT IS PENDING TRANSFER TO [facility] ONCE A BED IS AVAILABLE. SS TO REMAIN AVAILABLE NEEDED. Addendum: 04/06/20 at 0858 by NOLVIA MERLOS SS Amended: Links added.
[2020-04-06 09:00] VITALS: BP 121/59
[2020-04-06] MEDS: HYDROcodone-ACET 5/325MG TAB PO PRN ×3 (09:00→22:04)
[2020-04-06] MEDS: ASPirin-EC 81 mg tab PO SCH (09:09)
[2020-04-06] MEDS: LOSARTAN POTASSIUM 50 MG TAB PO SCH (09:09)
[2020-04-06] MEDS: FUROSEMIDE 100 MG/10ML VIAL IV SCH (09:09)
[2020-04-06] MEDS: metOLazone 5 MG TAB PO SCH (09:10)
[2020-04-06] MEDS: CALCIUM W/VIT D (600MG/400IU) TAB PO SCH (09:10)
[2020-04-06] MEDS: APIXABAN 5 MG TAB PO SCH (09:10)
[2020-04-06] MEDS ORDERED: POTASSIUM CHL 20 Meq TABLET PO ONE (10:30)
--- NOTE | 2020-04-06 11:53 | NUR ---
PT REPORTS THAT HE WALKED TO THE BATHROOM ALREADY TODAY. ATTEMPT P.T. LATER.
[2020-04-06 13:00] VITALS: BP 139/64
[2020-04-06] MEDS: HYDROmorphone HCL 2 MG/ML VL IV PRN (15:11)
[2020-04-06 16:57] VITALS: BP 138/84
--- NOTE | 2020-04-06 19:00 | NUR ---
9229 04/06/20- Contacted [facility] at [phone] requesting update on transfer and/or authorization for continued inpatient stay. Per communication analyst Epifanio there are no beds available, housing case manager has authorized continued inpatient stay for today. Hard copy to be faxed.
--- NOTE | 2020-04-06 19:20 | NUR ---
Opening note Assumed care. Patient awake, alert, unlabored breathing, o2 6LPM via nasal canula, patient tolerating it well. POC explained to patient, call light with in reach, bed on lowest position, side rails up X2 for safety. Will cont to monitor.
[2020-04-06 22:00] VITALS: BP 115/61
[2020-04-06] MEDS: ATORVASTATIN 20 MG TAB PO SCH (22:03)
[2020-04-06] MEDS: ENOXAPARIN SOD 150 MG/1 ML SYRINGE SC SCH (22:04)
[2020-04-06] MEDS: TEMAZEPAM 15 MG CAP PO PRN (22:05)
[2020-04-07] MEDS: ACCU-CHEK COMFORT CURVE STRIP VI SCH ×4 (00:14→17:53)
[2020-04-07] MEDS: PIPERACILLIN-TAZO 4.5GM 100 ML IV SCH ×3 (00:14→12:18)
[2020-04-07] MEDS: IPRATROPIUM BROM 0.5 MG/2.5ML INH SOL NEB SCH ×4 (00:27→18:44)
[2020-04-07] MEDS: ALBUTEROL SULF 2.5 MG/0.5ML(0.5%) NEB SOLN NEB SCH ×4 (00:27→18:44)
--- NOTE | 2020-04-07 00:31 | NUR ---
Respiratory note: AT BEDSIDE FOR MED DONALDO PANG.
--- NOTE | 2020-04-07 02:10 | NUR ---
Patient got up walked to the restroom with a front wheel walker, unsteady gate, but was able to walk back to the chair next to his bed, where he wants to sit up for a while. Patient required O2 at all time, very short of breath with any excerption.
[2020-04-07] MEDS: HYDROcodone-ACET 5/325MG TAB PO PRN (02:28)
--- NOTE | 2020-04-07 02:28 | NUR ---
Medicated for pain.
--- NOTE | 2020-04-07 03:13 | NUR ---
OPENING SHIFT NOTE Assumed care of patient who is A&O x4. Currently on 5L NC with no s/s of distress. Reports 8/10 pain in right knee radiating down right lower leg. Pain management options discussed. Right lower extremity brace present. PIV in left a/c not flushing. New venous access to be obtained. POC discussed and all questions answered. Bed is in low locked position with side rails up x2. Call light is within reach and patient encouraged to call for assistance when needed. Will continue to monitor for changes PRN. Addendum: 04/08/20 at 0318 by MURTAZA DEE RN RN incorrect time. Time should be 1924
[2020-04-07 05:00] VITALS: BP 108/61
[2020-04-07] MEDS: InsuLIN REG 1unit/0.01ml Soln (100units/ml) SC SCH ×4 (05:52→17:57)
--- NOTE | 2020-04-07 07:00 | NUR ---
Opening Shift Note Received report on the patient. Awake lying in bed. Patient shows no signs of distress at this time. Discussed plan of care with the patient. Bed in lowest position, side rails up x2, and call light is within reach.
[2020-04-07] MEDS: BUDESONIDE (INHALATION) 0.5 MG/2 ML NEB NEB SCH ×2 (07:45→18:43)
[2020-04-07 07:55] LABS: Calcium 8.1 mg/dL (8.5-10.1)
[2020-04-07 07:58] LABS: BUN/Creatinine Ratio 21.7
[2020-04-07 09:00] VITALS: BP 113/75
[2020-04-07] MEDS ORDERED: POTASSIUM CHL 20 Meq TABLET PO ONE (09:30)
[2020-04-07] MEDS: FUROSEMIDE 100 MG/10ML VIAL IV SCH (09:44)
[2020-04-07] MEDS: ASPirin-EC 81 mg tab PO SCH (09:45)
[2020-04-07] MEDS: CALCIUM W/VIT D (600MG/400IU) TAB PO SCH (09:45)
[2020-04-07] MEDS: LOSARTAN POTASSIUM 50 MG TAB PO SCH (09:45)
[2020-04-07] MEDS: ENOXAPARIN SOD 150 MG/1 ML SYRINGE SC SCH (09:45)
--- NOTE | 2020-04-07 09:49 | NUR ---
Dr Pérez at bedside. New orders received
[2020-04-07] MEDS: HYDROmorphone HCL 2 MG/ML VL IV PRN ×2 (10:07→22:09)
--- NOTE | 2020-04-07 10:32 | NUR ---
Received knee instability brace and applied to the patient's leg. Patient tolerated well.
[2020-04-07] MEDS ORDERED: MORPHINE SULF 30 mg ER tab PO ONE (10:45)
[2020-04-07 13:00] VITALS: BP 111/62
--- NOTE | 2020-04-07 16:14 | NUR ---
1330 04/07/20 - Faxed to [facility] at [phone] face sheet, order request for wheelchair, home health medication management, vitals. Spoke with data entry analyst Earlene who stated the showcase trimmer was reviewing the request and would call me back shortly.
[2020-04-07 16:37] VITALS: BP 119/64
[2020-04-07] MEDS: levoFLOXacin 250 MG TAB PO SCH (17:58)
[2020-04-07] MEDS: THROAT LOZENGES(CEPASTAT) MT PRN (18:03)
[2020-04-07 19:47] VITALS: BP 119/64
--- NOTE | 2020-04-07 21:00 | NUR ---
IV insertion IV access obtained, via clean sterile technique by inserting 22 gauge catheter at right forearm after 1 attempt. IV secured properly. No trauma to site. Patient tolerated well. IV removal Left A/C IV DC'd with clean sterile technique, catheter fully intact. Pressure dressing applied to site. Patient tolerated well.
[2020-04-07 22:00] VITALS: BP 122/51
--- NOTE | 2020-04-07 22:00 | NUR ---
Wheelchair delivered. Addendum: 04/08/20 at 0336 by MURTAZA DEE RN RN Wheelchair is at bedside.
[2020-04-07] MEDS: MORPHINE SULF 30 mg ER tab PO SCH (22:42)
[2020-04-07] MEDS: APIXABAN 5 MG TAB PO SCH (22:42)
[2020-04-07] MEDS: ATORVASTATIN 20 MG TAB PO SCH (22:42)
[2020-04-08] MEDS: InsuLIN REG 1unit/0.01ml Soln (100units/ml) SC SCH ×5 (00:11→23:44)
[2020-04-08] MEDS: ALBUTEROL SULF 2.5 MG/0.5ML(0.5%) NEB SOLN NEB SCH ×4 (00:18→19:18)
[2020-04-08] MEDS: IPRATROPIUM BROM 0.5 MG/2.5ML INH SOL NEB SCH ×4 (00:18→19:18)
[2020-04-08] MEDS: ACCU-CHEK COMFORT CURVE STRIP VI SCH ×5 (00:42→23:42)
[2020-04-08] MEDS: HYDROcodone-ACET 5/325MG TAB PO PRN ×2 (00:45→21:14)
--- NOTE | 2020-04-08 00:45 | NUR ---
Patient medicated for report of pain to right lower extremity. Patient repositioned for comfort.
--- NOTE | 2020-04-08 02:00 | NUR ---
Patient repositioned for comfort.
[2020-04-08] MEDS: HYDROmorphone HCL 2 MG/ML VL IV PRN ×3 (03:29→19:13)
--- NOTE | 2020-04-08 03:31 | NUR ---
Patient medicated for report of 8/10 pain to right lower extremity.
[2020-04-08 05:00] VITALS: BP 101/49
--- NOTE | 2020-04-08 07:47 | NUR ---
OPENING SHIFT NOTE Assumed care of patient. PT is awake and alert. No S/S of distress/SOB or pain. Instructed on POC and to call for assist PRN. Bed in lowest locked position, call light within reach, side rails up x2, fall precautions in place. Will continue to monitor for changes Q1hr and PRN.
[2020-04-08] MEDS: BUDESONIDE (INHALATION) 0.5 MG/2 ML NEB NEB SCH ×2 (08:50→19:18)
[2020-04-08 09:00] VITALS: BP 114/63
[2020-04-08] MEDS: CALCIUM W/VIT D (600MG/400IU) TAB PO SCH (09:52)
[2020-04-08] MEDS: APIXABAN 5 MG TAB PO SCH ×2 (09:52→22:29)
[2020-04-08] MEDS: FUROSEMIDE 100 MG/10ML VIAL IV SCH (09:52)
[2020-04-08] MEDS: ASPirin-EC 81 mg tab PO SCH (09:53)
[2020-04-08] MEDS: LOSARTAN POTASSIUM 50 MG TAB PO SCH (09:53)
[2020-04-08] MEDS: MORPHINE SULF 30 mg ER tab PO SCH (09:53)
[2020-04-08] MEDS: levoFLOXacin 250 MG TAB PO SCH (09:53)
--- NOTE | 2020-04-08 11:17 | NUR ---
PATIENT REFUSED PT. Addendum: 04/08/20 at 1117 by MAMTA YEUNG PTT Amended: Links added.
[2020-04-08 12:07] LABS: Hemoglobin 7.8 g/dL (13.5-17.5); Lymphocytes # (auto) 0.6 10 ^3/uL (0.4-5.4); Lymphocytes % (auto) 11.9 % (10.0-50.0); Nucleated Red Blood Cells % 0.1 %; White Blood Cell 5.3 10^3/uL (4.4-10.8)
[2020-04-08 12:09] LABS: Basophils # (auto) 0.1 10 ^3/uL (0-0.2); Eosinophils # (auto) 0.3 10 ^3/uL (0-0.8); Eosinophils % (auto) 4.9 % (0.0-7.0); Hematocrit 24.7 % (41.0-53.0); Mean Corpuscular Hemoglobin 25.1 pg (28.0-32.0); Mean Corpuscular Hgb Conc. 31.5 g/dL (32.0-36.0); Mean Corpuscular Volume 79.8 fL (80.0-100.0); Monocytes # (auto) 0.3 10 ^3/uL (0-1.3); Monocytes % (auto) 6.2 % (0.0-12.0); Neutrophils # (auto) 4.1 10 ^3/uL (1.6-8.6); Platelet Count (auto) 275 10^3/uL (140-450); Red Cell Distribution Width 17.5 % (11.8-14.3)
[2020-04-08] MEDS: THROAT LOZENGES(CEPASTAT) MT PRN ×2 (12:12→21:13)
[2020-04-08 12:25] LABS: BUN/Creatinine Ratio 22.1; Calcium 8.5 mg/dL (8.5-10.1); Potassium 3.2 mmol/L (3.5-5.1)
[2020-04-08 13:00] VITALS: BP_SYST 104; BP_SYST 87; BP_DIAS 49; BP_DIAS 64
[2020-04-08] MEDS ORDERED: POTA10TA51 PO (13:13)
[2020-04-08] MEDS ORDERED: APIX5TAB PO (13:13)
[2020-04-08] MEDS ORDERED: LOSA-69 PO (13:13)
[2020-04-08] MEDS ORDERED: FURO40TA4 PO (13:13)
[2020-04-08] MEDS ORDERED: POTASSIUM CHL 20 Meq TABLET PO ONE (13:15)
--- NOTE | 2020-04-08 13:46 | NUR ---
Nutrition Followup Note Wt 133.0 kg Pt was alert and oriented at time of rounds. Pt reports appetite is good. Pt with inadequate oral intake aeb pt with avg po intake of 85% x 3 days. Est energy needs 5281-2195 kcal (11-14 kcal/kg BW 138.1kg) Est protein needs 70-84g (1-1.2g/kg IBW 70kg) Will reassess prn. Labs: BUN 26H, GLUC 116H, Ca 8.1L, Alb 2.2L BM: Pt with 2 BMs 7/8 per RN note Skin: BS 22 low risk, full details in career placement specialist doc PES: Obesity r/t caloric intake in excess of needs aeb pt with BMI of 46.3kg/m2 Comments 1) Continue to monitor po intake, labs, skin 2) Refer pt to [facility] on DC 3) Continue current plan of care Expected Outcomes/Goals: 1) Po intake >75% 2) Pt to maintain wt while hospitalized 3) F/u 3-5 days
--- NOTE | 2020-04-08 14:47 | NUR ---
Re-assessment Filtering Machine Tender spoke with pt who reports having too much pain and being unable to provide for himself at home without his sister (timekeeper supervisor caregiver) at home, she is currently in [place]. Pt also declined SNF transfer. Pt communicated with family and states he has a cousin who can pcik him up and transport him home 04/07. His cousin will be able to assist pt at home, home health was also ordered. Ss to f/u with pt 04/07 to facilitate dc plan.
--- NOTE | 2020-04-08 16:29 | NUR ---
600 04/08/20 - Contacted [facility] at [phone] requesting authorization for continued inpatient stay. Spoke with purchase price analyst Kathleen who stated authorization is pending case technicianarmored transport service manager.
[2020-04-08 17:00] VITALS: BP 112/51
--- NOTE | 2020-04-08 19:35 | NUR ---
OPENING SHIFT NOTE Assumed care of patient who is A&O x4. Currently on 6L NC with no s/s of distress. Patient reports 8/10 right knee and lower leg pain. Pain management options discussed. PIV in right forearm is intact and patent. Flushed with 10ml NS. Brace present on right lower extremity and extremity is elevated on pillows. Patient's personal wheelchair is present at the bedside. POC discussed and patient verbalizes understanding. Bed is in low locked position with side rails up x2. Call light within reach and patient encouraged to call for assistance when needed. Will continue to monitor for changes PRN.
[2020-04-08] MEDS: ATORVASTATIN 20 MG TAB PO SCH (22:29)
[2020-04-08 22:35] VITALS: BP 109/54
[2020-04-09] MEDS: IPRATROPIUM BROM 0.5 MG/2.5ML INH SOL NEB SCH ×5 (01:18→23:55)
[2020-04-09] MEDS: ALBUTEROL SULF 2.5 MG/0.5ML(0.5%) NEB SOLN NEB SCH ×5 (01:18→23:55)
[2020-04-09] MEDS: HYDROmorphone HCL 2 MG/ML VL IV PRN ×3 (05:04→18:07)
[2020-04-09 05:45] VITALS: BP 114/55
[2020-04-09] MEDS: InsuLIN REG 1unit/0.01ml Soln (100units/ml) SC SCH ×3 (06:00→18:11)
[2020-04-09] MEDS: BUDESONIDE (INHALATION) 0.5 MG/2 ML NEB NEB SCH ×2 (06:24→19:04)
[2020-04-09] MEDS: ACCU-CHEK COMFORT CURVE STRIP VI SCH ×3 (06:25→18:06)
--- NOTE | 2020-04-09 07:00 | NUR ---
Opening Shift Note Received report on the patient. Awake lying in bed. Patient shows no signs of distress at this time. Discussed the plan of care with the patient. Bed in lowest position, side rails up x2, and the call light is within reach.
[2020-04-09 09:00] VITALS: BP 113/60
[2020-04-09] MEDS: FUROSEMIDE 100 MG/10ML VIAL IV SCH (09:23)
[2020-04-09] MEDS: LOSARTAN POTASSIUM 50 MG TAB PO SCH (09:23)
[2020-04-09] MEDS: CALCIUM W/VIT D (600MG/400IU) TAB PO SCH (09:24)
[2020-04-09] MEDS: ASPirin-EC 81 mg tab PO SCH (09:24)
[2020-04-09] MEDS: APIXABAN 5 MG TAB PO SCH (09:24)
[2020-04-09] MEDS: levoFLOXacin 250 MG TAB PO SCH (09:24)
[2020-04-09] MEDS ORDERED: LEVO750T64 PO (09:30)
--- NOTE | 2020-04-09 09:56 | NUR ---
Patient refuses to go home in a car and is requesting an ambulance.
[2020-04-09] MEDS ORDERED: POTASSIUM CHL 20 Meq TABLET PO SCH (10:00)
--- NOTE | 2020-04-09 10:30 | NUR ---
PATIENT DECLINED P.T. BECAUSE OF PENDING DISCHARGE.
[2020-04-09 10:43] VITALS: BP 113/60
[2020-04-09 13:00] VITALS: BP 129/70
--- NOTE | 2020-04-09 13:36 | NUR ---
0450 04/09/20- Contacted [facility] at [phone] requesting to speak with briefcase sewer Marcela regarding order for transportation for this patient. Transportation has been authorization by [facility] medical health researcher.
--- NOTE | 2020-04-09 14:46 | NUR ---
Wound photos taken
--- NOTE | 2020-04-09 14:50 | NUR ---
re-assessment [facility] coordinated transfer by bls for pt. She will coordinate pickup with bedside Rn.
--- NOTE | 2020-04-09 15:16 | NUR ---
May from [facility] called and let me know the case picker time is 1929.
[2020-04-09 17:00] VITALS: BP 109/52
--- NOTE | 2020-04-09 19:17 | NUR ---
Endorsed care to Radha Richter Patient shows no signs of distress at this time.
--- NOTE | 2020-04-09 19:35 | NUR ---
PT REFUSING TO GO HOME AT THSI TIME. STATES THAT, "I HAVE BEEN AWAKE SINCE 4AM AND I AM TIRED. " EXPLAINED TO PT THAT HE IS ALREADY DISCHARGED AND THAT TRANSPORT IS HERE FOR HIM. PT STILL REFUSING AND PRESSER ALL AROUND AND HOUSE SUP INVOLVED NOW.
--- NOTE | 2020-04-09 19:55 | NUR ---
SECURITY HAS BEEN CALLED PER HOUSE SUP REQUEST FOR STAND BY.
--- NOTE | 2020-04-09 20:05 | NUR ---
PT SISTER CALLED AND BRAVO BARNETT HAS EXPLAINED TO HER THAT PT IS DISCHARGED AND THAT EVERYTHING HAS BEEN SET UP FOR HIS SAFETY AT HOME. SHE STATES THAT SHE WILL CALL PT AND TRY TO CONVINCE HIM TO COME HOME.
--- NOTE | 2020-04-09 20:08 | NUR ---
PT STATES THAT HE WILL GO HOME VIA TRANSPORT. TRANSPORT IS NOW ON WILL CALL AND WILL BE CALLED BACK FOR TRANSPORT.
--- NOTE | 2020-04-09 20:25 | NUR ---
PT DC'D HOME VIA [facility]SPORT TEAM VIA W/C. PT IS IN STABLE COND. NO S/S OF ANY DISTRESS NOTED.
== END 2020-04-09 20:25 | disposition home health service (06) | DRG 177 ==
LOC: EDBD 16:15 → EDUNIT# 16:15 → ER 16:15 → TELE 16:16 → TELE-WESTW 03-30 02:18 → DOU IN ICU 04-01 18:58 → TELE-WESTW 04-03 23:35
PROVIDERS: ADMIT Hospitalist; ATTEND Internal Medicine
DX: J15.6 Pneumonia due to other Gram-negative bacteria (principal); J96.21 Acute and chronic respiratory failure with hypoxia; I50.43 Acute on chronic combined systolic (congestive) and diastolic (congestive) heart failure; I48.92 Unspecified atrial flutter; D68.69 Other thrombophilia; J44.0 Chronic obstructive pulmonary disease with (acute) lower respiratory infection; J91.8 Pleural effusion in other conditions classified elsewhere; Z68.41 Body mass index [BMI] 40.0-44.9, adult; I11.0 Hypertensive heart disease with heart failure; S86.911A Strain of unspecified muscle(s) and tendon(s) at lower leg level, right leg, initial encounter; D64.9 Anemia, unspecified; E11.65 Type 2 diabetes mellitus with hyperglycemia; E78.5 Hyperlipidemia, unspecified; E11.21 Type 2 diabetes mellitus with diabetic nephropathy; E66.01 Morbid (severe) obesity due to excess calories; I25.5 Ischemic cardiomyopathy; M79.604 Pain in right leg; I25.10 Atherosclerotic heart disease of native coronary artery without angina pectoris; W18.39XA Other fall on same level, initial encounter; Z20.828 Contact with and (suspected) exposure to other viral communicable diseases; I25.2 Old myocardial infarction; I48.91 Unspecified atrial fibrillation; Z79.4 Long term (current) use of insulin; Z83.3 Family history of diabetes mellitus; Z87.891 Personal history of nicotine dependence; Z91.19 Patient's noncompliance with other medical treatment and regimen; Z99.81 Dependence on supplemental oxygen; Y93.89 Activity, other specified; Y99.8 Other external cause status; Y92.098 Other place in other non-institutional residence as the place of occurrence of the external cause
CPT/HCPCS: 36415; 36600; 71045; 73560; 73590; 73600; 73700; 80048; 80053; 80061; 80202; 81001; 82565; 82728; 82805; 82962; 83036; 83615; 83735; 83880; 84484; 85007; 85014; 85018; 85025; 85027; 85379; 86141; 87070; 87081; 87449; 87804; 87880; 93005; 94640; 97163; G0378; J1815; J2405; J2543; P9047

== ENCOUNTER 2020-04-20 23:16 | Inpatient (IN) | payer OTHER ==
[~2020-04-20] VITALS: Ht 175.3 cm; Wt 136.1 kg
[~2020-04-20 23:16] MED LIST changes: +AMIO200T33 PO; -AMLO5TAB15 PO; +APIX5TAB PO; -ASPI25CA2 PO; -ATOR20TA50 PO; +ATOR40TA52 PO; -CALC-30; +FURO40TA4 PO; +LEVO750T64 PO; +PANT40TA2 PO; +POTA10TA51 PO
[2020-04-21] LABS: Basophils # (auto) 0.1 10 ^3/uL (0-0.2); Basophils % (auto) 0.9 % (0.0-2.0); Eosinophils # (auto) 0.1 10 ^3/uL (0-0.8); Eosinophils % (auto) 1.2 % (0.0-7.0); Hematocrit 25.4 % (41.0-53.0); Hemoglobin 7.8 g/dL (13.5-17.5); Lymphocytes # (auto) 1.1 10 ^3/uL (0.4-5.4); Lymphocytes % (auto) 13.2 % (10.0-50.0); Mean Corpuscular Hemoglobin 23.2 pg (28.0-32.0); Mean Corpuscular Hgb Conc. 30.8 g/dL (32.0-36.0); Mean Corpuscular Volume 75.2 fL (80.0-100.0); Monocytes # (auto) 0.8 10 ^3/uL (0-1.3); Monocytes % (auto) 9.6 % (0.0-12.0); Neutrophils # (auto) 6.5 10 ^3/uL (1.6-8.6); Neutrophils % (auto) 75.1 % (37.0-80.0); Nucleated Red Blood Cells % 0.2 %; Platelet Count (auto) 592 10^3/uL (140-450); Red Blood Cells 3.38 10^6/uL (4.5-5.90); Red Cell Distribution Width 18.9 % (11.8-14.3); White Blood Cell 8.6 10^3/uL (4.4-10.8)
[2020-04-21 00:09] LABS: INR 1.13 (0.9-1.15); Partial Thromboplastin Time 25.6 sec (23.64-32.05)
[2020-04-21 00:12] LABS: Alanine Aminotransferase 26 U/L (16-61); Albumin 2.7 g/dL (3.4-5.0); Anion Gap 6 (5-15); Aspartate Aminotransferase 15 U/L (15-37); BUN/Creatinine Ratio 20.6; Blood Urea Nitrogen 21 mg/dL (7-18); Calcium 8.4 mg/dL (8.5-10.1); Carbon Dioxide 26 mmol/L (21-32); Chloride 102 mmol/L (98-107); GFR African American 92 mL/min; GFR Non-African American 76 mL/min; Glucose 173 mg/dL (74-106); Magnesium 2.1 mg/dL (1.6-2.6); Potassium 3.9 mmol/L (3.5-5.1); Sodium 134 mmol/L (136-145)
[2020-04-21 00:17] LABS: Alkaline Phosphatase 140 U/L (45-117); Bilirubin, Total 0.7 mg/dL (0.2-1.0); Total Protein 7.3 g/dL (6.4-8.2)
[2020-04-21] MEDS ORDERED: FUROSEMIDE 20 MG/2 ML VIAL IV ONE (01:30)
[2020-04-21] MEDS ORDERED: cefTRIAXone 1GM/50ML D5W 50 ML IV ONE (01:30)
[2020-04-21 01:59] VITALS: BP 145/76
[2020-04-21] MEDS ORDERED: ACETAMINOPHEN 325 MG TAB PO PRN (03:00)
[2020-04-21] MEDS ORDERED: DEXTROSE (50%) 50ML SYRG IV PRN (03:00)
[2020-04-21] MEDS ORDERED: ONDANSETRON HCL 4 MG/2 ML VIAL IV PRN (03:00)
[2020-04-21] MEDS ORDERED: NITROGLYCERIN 0.4 MG SL TAB SL PRN (03:00)
[2020-04-21] MEDS ORDERED: TEMAZEPAM 15 MG CAP PO PRN (03:00)
[2020-04-21] MEDS ORDERED: MORPHINE SULF INJ 2 MG/ML SYRINGE 1ML IV PRN (03:00)
[2020-04-21 04:12] VITALS: BP 145/76
[2020-04-21 05:08] LABS: Urine Bacteria FEW /hpf (None Seen); Urine Blood Negative /uL (Negative); Urine Hyaline Cast FEW /lpf (0 - 2); Urine Mucus FEW (None Seen); Urine Specific Gravity 1.008 (1.001-1.035)
[2020-04-21 05:10] LABS: Urine WBC 2 /hpf (0 - 3)
[2020-04-21] MEDS ORDERED: FUROSEMIDE 20 MG/2 ML VIAL IV SCH ×2 (06:00→12:45)
[2020-04-21 06:20] VITALS: BP 117/44
[2020-04-21] MEDS: InsuLIN REG 1unit/0.01ml Soln (100units/ml) SC SCH ×2 (07:00→11:30)
[2020-04-21] MEDS: ACCU-CHEK COMFORT CURVE STRIP VI SCH ×2 (07:21→11:31)
[2020-04-21] MEDS: IPRATROPIUM BROM 0.5 MG/2.5ML INH SOL NEB SCH ×2 (08:04→12:00)
[2020-04-21] MEDS: ALBUTEROL SULF 2.5 MG/0.5ML(0.5%) NEB SOLN NEB SCH ×2 (08:04→12:00)
[2020-04-21] MEDS ORDERED: LOSARTAN POTASSIUM 50 MG TAB PO SCH (10:00)
[2020-04-21] MEDS ORDERED: FAMOTIDINE 20 MG TAB PO SCH (10:00)
[2020-04-21] MEDS ORDERED: APIXABAN 5 MG TAB PO SCH (10:00)
[2020-04-21] MEDS ORDERED: ENOXAPARIN SOD 40 MG/0.4 ML SYRINGE SC SCH (10:00)
[2020-04-21] MEDS ORDERED: ASPirin 81 mg TAB PO SCH (10:00)
--- NOTE | 2020-04-21 10:50 | NUR ---
Respiratory note: TOOK PT OFF BIPAP PLACED PT ON 10L OXYMIZER. PT TOLERATING WELL POX 96%. RN AWARE OF CHANGES.
[2020-04-21 13:00] VITALS: BP 124/46
--- NOTE | 2020-04-21 16:29 | NUR ---
assessment Patient is a 74 year old male who is alert and oriented. I informed patient of his consult for hospice eval. Patient informed me that his sister Kamala is here to take him home. I read patient a list of medicare providers. Per patient he spoke with Dr Ivy about [facility] and is willing to speak to someone from [facility], but they will have to contact him at home. I sent [facility] the MD order and Diana will meet with patient at his home. I will follow up in the morning. Addendum: 04/21/20 at 1632 by Tess BATES Amended: Links added.
--- NOTE | 2020-04-22 10:15 | NUR ---
re-assessment Patient has refused hospice care. Addendum: 04/22/20 at 1418 by Tess BATES Amended: Links added.
== END 2020-04-21 15:15 | disposition left against medical advice (07) | DRG 291 ==
LOC: ER 23:16 → EDBD 23:16 → TELE 23:17
PROVIDERS: ADMIT Nurse Practitioner; ATTEND Internal Medicine
PROC: 5A09357 Assistance with Respiratory Ventilation, Less than 24 Consecutive Hours, Continuous Positive Airway Pressure (ICD-10-PCS; principal; 2020-04-20)
DX: I11.0 Hypertensive heart disease with heart failure (principal); J96.20 Acute and chronic respiratory failure, unspecified whether with hypoxia or hypercapnia; J44.1 Chronic obstructive pulmonary disease with (acute) exacerbation; J45.901 Unspecified asthma with (acute) exacerbation; I48.20 Chronic atrial fibrillation, unspecified; Z68.41 Body mass index [BMI] 40.0-44.9, adult; E11.9 Type 2 diabetes mellitus without complications; E66.01 Morbid (severe) obesity due to excess calories; I50.82 Biventricular heart failure; Z53.29 Procedure and treatment not carried out because of patient's decision for other reasons; E78.5 Hyperlipidemia, unspecified; I25.10 Atherosclerotic heart disease of native coronary artery without angina pectoris; Z79.01 Long term (current) use of anticoagulants; Z83.3 Family history of diabetes mellitus; Z90.49 Acquired absence of other specified parts of digestive tract; I50.23 Acute on chronic systolic (congestive) heart failure
CPT/HCPCS: 36415; 71045; 80053; 81001; 82728; 82962; 83605; 83735; 83880; 84484; 85025; 85379; 85610; 85730; 87040; 93005; 94640; 94660; 96365; 96375; 99291; G0378; J0696; J1815

== ENCOUNTER 2020-04-24 09:09 | Inpatient (IN) | payer OTHER ==
[~2020-04-24] VITALS: Ht 172.7 cm; Wt 126.4 kg
[2020-04-24] MEDS ORDERED: SODIUM CHLORIDE 0.9% 1,000 ML IV ONE (09:25)
[2020-04-24] MEDS ORDERED: DexAMETHasone SOD PHOS 10MG/1ML VIAL INJ IV ONE (09:30)
[2020-04-24 11:11] LABS: Basophils # (auto) 0.1 10 ^3/uL (0-0.2); Eosinophils # (auto) 0.1 10 ^3/uL (0-0.8); Monocytes # (auto) 0.6 10 ^3/uL (0-1.3); Nucleated Red Blood Cells % 0.3 %
[2020-04-24 11:12] LABS: Eosinophils % (auto) 0.6 % (0.0-7.0); Hematocrit 23.6 % (41.0-53.0); Hemoglobin 7.5 g/dL (13.5-17.5); Lymphocytes # (auto) 0.8 10 ^3/uL (0.4-5.4); Mean Corpuscular Hemoglobin 23.3 pg (28.0-32.0); Mean Corpuscular Hgb Conc. 31.6 g/dL (32.0-36.0); Mean Corpuscular Volume 73.7 fL (80.0-100.0); Monocytes % (auto) 6.1 % (0.0-12.0); Neutrophils # (auto) 7.8 10 ^3/uL (1.6-8.6); Neutrophils % (auto) 83.3 % (37.0-80.0); Platelet Count (auto) 516 10^3/uL (140-450); Red Cell Distribution Width 19.3 % (11.8-14.3); White Blood Cell 9.3 10^3/uL (4.4-10.8)
[2020-04-24 11:28] LABS: Potassium 4.1 mmol/L (3.5-5.1)
[2020-04-24 11:30] LABS: INR 1.18 (0.9-1.15); Partial Thromboplastin Time 26.4 sec (23.64-32.05)
[2020-04-24 11:41] LABS: Albumin 2.7 g/dL (3.4-5.0); BUN/Creatinine Ratio 17.4; CRP High Sensitivity 5.83 mg/dL (< 0.3); Calcium 8.6 mg/dL (8.5-10.1); Total Protein 7.3 g/dL (6.4-8.2)
[2020-04-24] MEDS ORDERED: FUROSEMIDE 40 MG/4 ML VIAL IV ONE (12:30)
[2020-04-24] MEDS ORDERED: FERROUS SULFATE 325 MG TAB PO ONE (15:15)
[2020-04-24] MEDS ORDERED: ENOXAPARIN SOD 120 MG/0.8 ML SYRINGE SC ONE (15:15)
[2020-04-24 16:09] VITALS: BP 126/60
[2020-04-24] MEDS ORDERED: NITROGLYCERIN 0.4 MG SL TAB SL PRN (16:15)
[2020-04-24] MEDS ORDERED: MORPHINE SULF INJ 2 MG/ML SYRINGE 1ML IV PRN ×2 (16:15→16:45)
[2020-04-24] MEDS ORDERED: ONDANSETRON HCL 4 MG/2 ML VIAL IV PRN (16:45)
[2020-04-24] MEDS ORDERED: ACETAMINOPHEN 500 MG TAB PO PRN (16:45)
[2020-04-24] MEDS ORDERED: DEXTROSE (50%) 50ML SYRG IV PRN (16:45)
[2020-04-24] MEDS: ACCU-CHEK COMFORT CURVE STRIP VI SCH ×2 (17:40→22:00)
[2020-04-24] MEDS: InsuLIN REG 1unit/0.01ml Soln (100units/ml) SC SCH ×2 (17:41→22:00)
[2020-04-24] MEDS ORDERED: ALBUTEROL SULF 2.5 MG/0.5ML(0.5%) NEB SOLN NEB SCH (18:00)
[2020-04-24] MEDS: FUROSEMIDE 40 MG/4 ML VIAL IV SCH (19:15)
[2020-04-24] MEDS: traMADol HCL 50 MG TAB PO PRN (19:15)
[2020-04-24] MEDS: TAMSULOSIN HYDROCHLORIDE 0.4 MG CAP PO SCH (22:00)
[2020-04-24] MEDS: SODIUM CHLOR 0.9% PF (SALINE LOCK) 10ML VIAL/SYR IV SCH (22:00)
[2020-04-24] MEDS ORDERED: ATENOLOL 25 MG TAB PO SCH (22:00)
[2020-04-24] MEDS: AMIODARONE HCL 200 MG TAB PO SCH (22:00)
[2020-04-24] MEDS ORDERED: APIXABAN 5 MG TAB PO SCH (22:00)
[2020-04-24] MEDS: POTASSIUM CHL 20 Meq TABLET PO SCH (22:00)
[2020-04-24] MEDS: PANTOPRAZOLE 40 MG TAB PO SCH (22:00)
[2020-04-24] MEDS ORDERED: BUDESONIDE (INHALATION) 180 MCG IH IN SCH (22:00)
[2020-04-24] MEDS: DOXYCYCLINE 100 MG TAB/CAP PO SCH (22:23)
[2020-04-24] MEDS: IPRATROPIUM BROM 0.5 MG/2.5ML INH SOL NEB SCH (22:59)
[2020-04-24] MEDS: ALBUTEROL SULF HFA 90MCG INH 200DOSE IN SCH (22:59)
[2020-04-25 04:08] LABS: Basophils # (auto) 0 10 ^3/uL (0-0.2); Eosinophils # (auto) 0 10 ^3/uL (0-0.8); Lymphocytes # (auto) 0.7 10 ^3/uL (0.4-5.4); Monocytes # (auto) 0.2 10 ^3/uL (0-1.3)
[2020-04-25 04:11] LABS: Basophils % (auto) 0.4 % (0.0-2.0); Hematocrit 22.3 % (41.0-53.0); Lymphocytes % (auto) 11.8 % (10.0-50.0); Mean Corpuscular Hemoglobin 23.2 pg (28.0-32.0); Mean Corpuscular Hgb Conc. 31.5 g/dL (32.0-36.0); Mean Corpuscular Volume 73.5 fL (80.0-100.0); Monocytes % (auto) 3.4 % (0.0-12.0); Neutrophils # (auto) 5.1 10 ^3/uL (1.6-8.6); Neutrophils % (auto) 84.4 % (37.0-80.0); Nucleated Red Blood Cells % 0.5 %; Platelet Count (auto) 492 10^3/uL (140-450); Red Blood Cells 3.03 10^6/uL (4.5-5.90); Red Cell Distribution Width 18.8 % (11.8-14.3); White Blood Cell 6.1 10^3/uL (4.4-10.8)
[2020-04-25 04:29] LABS: Albumin 2.5 g/dL (3.4-5.0); Calcium 7.8 mg/dL (8.5-10.1); Potassium 4.2 mmol/L (3.5-5.1)
[2020-04-25 04:32] LABS: BUN/Creatinine Ratio 19.1; Bilirubin, Total 0.7 mg/dL (0.2-1.0); Total Protein 6.7 g/dL (6.4-8.2)
[2020-04-25] MEDS: ALBUTEROL SULF HFA 90MCG INH 200DOSE IN SCH (05:00)
[2020-04-25] MEDS: IPRATROPIUM BROM 0.5 MG/2.5ML INH SOL NEB SCH ×4 (05:00→18:31)
[2020-04-25] MEDS: FUROSEMIDE 40 MG/4 ML VIAL IV SCH ×2 (06:00→18:25)
[2020-04-25] MEDS: SODIUM CHLOR 0.9% PF (SALINE LOCK) 10ML VIAL/SYR IV SCH ×3 (06:00→21:38)
[2020-04-25] MEDS: ACCU-CHEK COMFORT CURVE STRIP VI SCH ×4 (06:26→22:00)
[2020-04-25] MEDS: InsuLIN REG 1unit/0.01ml Soln (100units/ml) SC SCH ×4 (06:27→21:37)
[2020-04-25 08:25] VITALS: BP 100/35
[2020-04-25 08:40] VITALS: BP 105/42
[2020-04-25 09:10] VITALS: BP 100/41
[2020-04-25] MEDS ORDERED: LOSARTAN POTASSIUM 50 MG TAB PO SCH (10:00)
[2020-04-25] MEDS ORDERED: POTASSIUM CHL 10 Meq TABLET PO SCH (10:00)
[2020-04-25] MEDS ORDERED: FUROSEMIDE 40 MG TAB PO SCH (10:00)
[2020-04-25 10:14] VITALS: BP 114/43
[2020-04-25 10:57] VITALS: BP 110/50
[2020-04-25] MEDS ORDERED: IOHEXOL 350 MG/ML 100ML IJ ONE (11:27)
[2020-04-25] MEDS: CHOLECALCIFEROL (VITD3) 2,000 UNIT CAP PO SCH (11:33)
[2020-04-25] MEDS: POTASSIUM CHL 20 Meq TABLET PO SCH ×2 (11:33→21:36)
[2020-04-25] MEDS: ASCORBIC ACID 1,000 MG TAB PO SCH (11:34)
[2020-04-25] MEDS: DOXYCYCLINE 100 MG TAB/CAP PO SCH ×2 (11:34→21:36)
[2020-04-25] MEDS: PANTOPRAZOLE 40 MG TAB PO SCH ×2 (11:34→21:36)
[2020-04-25] MEDS: ATORVASTATIN 20 MG TAB PO SCH (11:34)
[2020-04-25] MEDS: ZINC SULFATE 220mg CAP or TAB PO SCH (11:35)
[2020-04-25] MEDS: AMIODARONE HCL 200 MG TAB PO SCH (11:36)
[2020-04-25] MEDS: NITROGLYCERIN 0.2MG/HR TOPICAL PATCH TD SCH (11:36)
[2020-04-25 12:07] LABS: Urine Bacteria NONE SEEN /hpf (None Seen); Urine Blood Negative /uL (Negative); Urine Hyaline Cast MANY /lpf (0 - 2); Urine Mucus FEW (None Seen); Urine Specific Gravity 1.015 (1.001-1.035); Urine WBC 1 /hpf (0 - 3)
[2020-04-25] MEDS: ALBUTEROL SULF 2.5 MG/0.5ML(0.5%) NEB SOLN NEB PRN ×2 (12:46→18:31)
[2020-04-25] MEDS: TAMSULOSIN HYDROCHLORIDE 0.4 MG CAP PO SCH (18:25)
[2020-04-25] MEDS: BUDESONIDE (INHALATION) 0.5 MG/2 ML NEB NEB SCH (18:31)
[2020-04-25 18:45] VITALS: BP 89/70
[2020-04-25 19:52] LABS: Basophils # (auto) 0 10 ^3/uL (0-0.2); Basophils % (auto) 0.1 % (0.0-2.0); Eosinophils # (auto) 0 10 ^3/uL (0-0.8); Platelet Count (auto) 539 10^3/uL (140-450)
[2020-04-25 19:54] LABS: Hematocrit 27.3 % (41.0-53.0); Hemoglobin 8.4 g/dL (13.5-17.5); Lymphocytes % (auto) 9.5 % (10.0-50.0); Mean Corpuscular Hemoglobin 23.1 pg (28.0-32.0); Mean Corpuscular Hgb Conc. 30.7 g/dL (32.0-36.0); Mean Corpuscular Volume 75.4 fL (80.0-100.0); Monocytes # (auto) 0.9 10 ^3/uL (0-1.3); Monocytes % (auto) 8.7 % (0.0-12.0); Neutrophils # (auto) 8.7 10 ^3/uL (1.6-8.6); Neutrophils % (auto) 81.7 % (37.0-80.0); Nucleated Red Blood Cells % 0.9 %; Red Blood Cells 3.62 10^6/uL (4.5-5.90); White Blood Cell 10.7 10^3/uL (4.4-10.8)
[2020-04-25 19:56] LABS: Red Cell Distribution Width 20.5 % (11.8-14.3)
[2020-04-25] MEDS: TEMAZEPAM 15 MG CAP PO PRN (21:38)
[2020-04-26] MEDS ORDERED: LORazepam 2MG/ML-1ML VIAL IV ONE (01:30)
[2020-04-26] MEDS: IPRATROPIUM BROM 0.5 MG/2.5ML INH SOL NEB SCH ×5 (06:00→18:49)
[2020-04-26] MEDS: ALBUTEROL SULF 2.5 MG/0.5ML(0.5%) NEB SOLN NEB PRN (06:10)
[2020-04-26] MEDS: SODIUM CHLOR 0.9% PF (SALINE LOCK) 10ML VIAL/SYR IV SCH ×3 (06:24→22:00)
[2020-04-26] MEDS: ACCU-CHEK COMFORT CURVE STRIP VI SCH ×4 (06:24→23:16)
[2020-04-26] MEDS: InsuLIN REG 1unit/0.01ml Soln (100units/ml) SC SCH ×4 (06:42→23:17)
[2020-04-26] MEDS: FUROSEMIDE 40 MG/4 ML VIAL IV SCH ×2 (06:55→18:00)
[2020-04-26] MEDS: ZINC SULFATE 220mg CAP or TAB PO SCH (10:00)
[2020-04-26] MEDS: CHOLECALCIFEROL (VITD3) 2,000 UNIT CAP PO SCH (10:00)
[2020-04-26] MEDS: NITROGLYCERIN 0.2MG/HR TOPICAL PATCH TD SCH (10:00)
[2020-04-26] MEDS: ASCORBIC ACID 1,000 MG TAB PO SCH (10:00)
[2020-04-26] MEDS: PANTOPRAZOLE 40 MG TAB PO SCH ×2 (10:31→22:58)
[2020-04-26] MEDS: DOXYCYCLINE 100 MG TAB/CAP PO SCH ×2 (10:31→22:58)
[2020-04-26] MEDS: POTASSIUM CHL 20 Meq TABLET PO SCH ×2 (10:31→22:58)
[2020-04-26] MEDS: ATORVASTATIN 20 MG TAB PO SCH (10:31)
[2020-04-26] MEDS ORDERED: HALOPERIDOL LACTATE 5 MG/ML INJ VIAL IM ONE (10:45)
[2020-04-26] MEDS: ALBUTEROL SULF 2.5 MG/0.5ML(0.5%) NEB SOLN NEB SCH ×2 (12:27→18:49)
[2020-04-26] MEDS: BUDESONIDE (INHALATION) 0.5 MG/2 ML NEB NEB SCH ×2 (12:27→18:49)
[2020-04-26] MEDS ORDERED: HALOPERIDOL LACTATE 5 MG/ML INJ VIAL IV PRN (16:15)
[2020-04-26] MEDS: TAMSULOSIN HYDROCHLORIDE 0.4 MG CAP PO SCH (18:00)
[2020-04-26] MEDS: TEMAZEPAM 15 MG CAP PO PRN (22:57)
[2020-04-26] MEDS: APIXABAN 5 MG TAB PO SCH (22:58)
[2020-04-26 23:30] VITALS: BP 149/75
[2020-04-27 04:53] VITALS: BP 134/66
[2020-04-27] MEDS: FUROSEMIDE 40 MG/4 ML VIAL IV SCH ×2 (06:01→17:50)
[2020-04-27] MEDS: InsuLIN REG 1unit/0.01ml Soln (100units/ml) SC SCH ×4 (06:01→22:20)
[2020-04-27] MEDS: SODIUM CHLOR 0.9% PF (SALINE LOCK) 10ML VIAL/SYR IV SCH ×3 (06:02→22:14)
[2020-04-27] MEDS: ACCU-CHEK COMFORT CURVE STRIP VI SCH ×4 (06:02→22:15)
[2020-04-27] MEDS: BUDESONIDE (INHALATION) 0.5 MG/2 ML NEB NEB SCH ×2 (06:22→18:49)
[2020-04-27] MEDS: ALBUTEROL SULF 2.5 MG/0.5ML(0.5%) NEB SOLN NEB SCH ×4 (06:22→18:49)
[2020-04-27] MEDS: IPRATROPIUM BROM 0.5 MG/2.5ML INH SOL NEB SCH ×4 (06:22→18:49)
[2020-04-27] MEDS: ATORVASTATIN 20 MG TAB PO SCH (10:55)
[2020-04-27] MEDS: PANTOPRAZOLE 40 MG TAB PO SCH ×2 (10:55→22:15)
[2020-04-27] MEDS: APIXABAN 5 MG TAB PO SCH ×2 (10:55→22:15)
[2020-04-27] MEDS: NITROGLYCERIN 0.2MG/HR TOPICAL PATCH TD SCH (10:55)
[2020-04-27] MEDS: POTASSIUM CHL 20 Meq TABLET PO SCH ×2 (10:55→22:15)
[2020-04-27] MEDS: DOXYCYCLINE 100 MG TAB/CAP PO SCH ×2 (10:55→22:15)
[2020-04-27 11:21] LABS: Albumin 2.6 g/dL (3.4-5.0); Calcium 8.4 mg/dL (8.5-10.1); Magnesium 2.2 mg/dL (1.6-2.6)
[2020-04-27 11:25] LABS: BUN/Creatinine Ratio 24.8; Total Protein 6.7 g/dL (6.4-8.2)
[2020-04-27 11:35] LABS: Basophils # (auto) 0.2 10 ^3/uL (0-0.2); Basophils % (auto) 1.1 % (0.0-2.0); Eosinophils # (auto) 0 10 ^3/uL (0-0.8); Eosinophils % (auto) 0.2 % (0.0-7.0); Hematocrit 27.3 % (41.0-53.0); Hemoglobin 8.1 g/dL (13.5-17.5); Lymphocytes # (auto) 1.4 10 ^3/uL (0.4-5.4); Lymphocytes % (auto) 9.4 % (10.0-50.0); Mean Corpuscular Hgb Conc. 29.7 g/dL (32.0-36.0); Monocytes # (auto) 1.5 10 ^3/uL (0-1.3); Monocytes % (auto) 9.6 % (0.0-12.0); Neutrophils # (auto) 12.3 10 ^3/uL (1.6-8.6); Neutrophils % (auto) 79.7 % (37.0-80.0); Nucleated Red Blood Cells % 0.2 %; Platelet Count (auto) 466 10^3/uL (140-450); Red Blood Cells 3.69 10^6/uL (4.5-5.90); White Blood Cell 15.4 10^3/uL (4.4-10.8)
[2020-04-27 11:36] LABS: Red Cell Distribution Width 20.8 % (11.8-14.3)
[2020-04-27 14:00] VITALS: BP 97/55
[2020-04-27] MEDS: traMADol HCL 50 MG TAB PO PRN ×2 (16:46→22:14)
[2020-04-27 17:00] VITALS: BP 106/64
[2020-04-27] MEDS: TAMSULOSIN HYDROCHLORIDE 0.4 MG CAP PO SCH (17:49)
[2020-04-27] MEDS: TEMAZEPAM 15 MG CAP PO PRN (22:14)
[2020-04-27 22:19] VITALS: BP 103/55
[2020-04-28] MEDS: IPRATROPIUM BROM 0.5 MG/2.5ML INH SOL NEB SCH ×4 (00:52→18:15)
[2020-04-28] MEDS: ALBUTEROL SULF 2.5 MG/0.5ML(0.5%) NEB SOLN NEB SCH ×4 (00:52→18:15)
[2020-04-28] MEDS: traMADol HCL 50 MG TAB PO PRN ×3 (03:46→19:54)
[2020-04-28] MEDS: FUROSEMIDE 40 MG/4 ML VIAL IV SCH ×2 (05:28→18:03)
[2020-04-28] MEDS: SODIUM CHLOR 0.9% PF (SALINE LOCK) 10ML VIAL/SYR IV SCH ×3 (05:28→22:07)
[2020-04-28 05:30] VITALS: BP 114/59
[2020-04-28] MEDS: ACCU-CHEK COMFORT CURVE STRIP VI SCH ×4 (06:07→22:08)
[2020-04-28] MEDS: InsuLIN REG 1unit/0.01ml Soln (100units/ml) SC SCH ×4 (06:08→22:12)
[2020-04-28] MEDS: BUDESONIDE (INHALATION) 0.5 MG/2 ML NEB NEB SCH ×2 (07:33→18:15)
[2020-04-28 08:59] VITALS: BP 108/58
[2020-04-28] MEDS: PANTOPRAZOLE 40 MG TAB PO SCH ×2 (09:58→22:08)
[2020-04-28] MEDS: DOXYCYCLINE 100 MG TAB/CAP PO SCH ×2 (09:58→22:08)
[2020-04-28] MEDS: POTASSIUM CHL 20 Meq TABLET PO SCH ×2 (09:58→22:08)
[2020-04-28] MEDS: ATORVASTATIN 20 MG TAB PO SCH (09:58)
[2020-04-28] MEDS: APIXABAN 5 MG TAB PO SCH ×2 (09:58→22:07)
[2020-04-28] MEDS: NITROGLYCERIN 0.2MG/HR TOPICAL PATCH TD SCH (10:00)
[2020-04-28 13:00] VITALS: BP 110/58
[2020-04-28] MEDS ORDERED: MORPHINE SULF INJ 2 MG/ML SYRINGE 1ML IV PRN (13:15)
[2020-04-28 17:35] VITALS: BP 113/58
[2020-04-28] MEDS: TAMSULOSIN HYDROCHLORIDE 0.4 MG CAP PO SCH (18:03)
[2020-04-28 22:00] VITALS: BP 138/67
[2020-04-29] VITALS (7 sets, daily range): BP systolic 97–136; BP diastolic 40–67
[2020-04-29] MEDS: TEMAZEPAM 15 MG CAP PO PRN (00:06)
[2020-04-29] MEDS: ALBUTEROL SULF 2.5 MG/0.5ML(0.5%) NEB SOLN NEB SCH ×4 (00:08→19:05)
[2020-04-29] MEDS: IPRATROPIUM BROM 0.5 MG/2.5ML INH SOL NEB SCH ×4 (00:08→19:05)
[2020-04-29 06:21] LABS: Basophils # (auto) 0.1 10 ^3/uL (0-0.2); Eosinophils # (auto) 0.3 10 ^3/uL (0-0.8); Eosinophils % (auto) 2.9 % (0.0-7.0)
[2020-04-29 06:24] LABS: Basophils % (auto) 1.1 % (0.0-2.0); Hematocrit 24.1 % (41.0-53.0); Hemoglobin 7.4 g/dL (13.5-17.5); Lymphocytes # (auto) 1.5 10 ^3/uL (0.4-5.4); Lymphocytes % (auto) 16.1 % (10.0-50.0); Mean Corpuscular Hemoglobin 22.9 pg (28.0-32.0); Mean Corpuscular Hgb Conc. 30.7 g/dL (32.0-36.0); Mean Corpuscular Volume 74.5 fL (80.0-100.0); Monocytes # (auto) 0.7 10 ^3/uL (0-1.3); Monocytes % (auto) 7.7 % (0.0-12.0); Neutrophils # (auto) 6.8 10 ^3/uL (1.6-8.6); Neutrophils % (auto) 72.2 % (37.0-80.0); Platelet Count (auto) 376 10^3/uL (140-450); Red Blood Cells 3.23 10^6/uL (4.5-5.90); White Blood Cell 9.5 10^3/uL (4.4-10.8)
[2020-04-29 06:26] LABS: Red Cell Distribution Width 20.6 % (11.8-14.3)
[2020-04-29] MEDS: ACCU-CHEK COMFORT CURVE STRIP VI SCH ×3 (06:41→17:00)
[2020-04-29] MEDS: SODIUM CHLOR 0.9% PF (SALINE LOCK) 10ML VIAL/SYR IV SCH ×2 (06:41→15:07)
[2020-04-29] MEDS: FUROSEMIDE 40 MG/4 ML VIAL IV SCH ×2 (06:41→17:25)
[2020-04-29] MEDS: InsuLIN REG 1unit/0.01ml Soln (100units/ml) SC SCH ×3 (06:42→17:00)
[2020-04-29 06:45] LABS: Potassium 4.1 mmol/L (3.5-5.1)
[2020-04-29 06:52] LABS: Albumin 2.4 g/dL (3.4-5.0); BUN/Creatinine Ratio 29.5; Bilirubin, Total 0.7 mg/dL (0.2-1.0); Calcium 8.2 mg/dL (8.5-10.1)
[2020-04-29] MEDS: NITROGLYCERIN 0.2MG/HR TOPICAL PATCH TD SCH (10:00)
[2020-04-29] MEDS: APIXABAN 5 MG TAB PO SCH (10:25)
[2020-04-29] MEDS: ATORVASTATIN 20 MG TAB PO SCH (10:25)
[2020-04-29] MEDS: DOXYCYCLINE 100 MG TAB/CAP PO SCH (10:25)
[2020-04-29] MEDS: PANTOPRAZOLE 40 MG TAB PO SCH (10:25)
[2020-04-29] MEDS: POTASSIUM CHL 20 Meq TABLET PO SCH (10:25)
[2020-04-29] MEDS: BUDESONIDE (INHALATION) 0.5 MG/2 ML NEB NEB SCH ×2 (12:41→19:05)
[2020-04-29] MEDS: TAMSULOSIN HYDROCHLORIDE 0.4 MG CAP PO SCH (18:00)
== END 2020-04-29 21:15 | disposition hospice, home (50) | DRG 189 ==
LOC: EDUNIT# 09:09 → EDBD 09:09 → ER 09:09 → TELE 09:10 → TELE-WESTW 04-26 22:47
PROVIDERS: ADMIT Internal Medicine; ATTEND Internal Medicine
PROC: 5A09357 Assistance with Respiratory Ventilation, Less than 24 Consecutive Hours, Continuous Positive Airway Pressure (ICD-10-PCS; 2020-04-24)
PROC: 30233N1 Transfusion of Nonautologous Red Blood Cells into Peripheral Vein, Percutaneous Approach (ICD-10-PCS; principal; 2020-04-25)
DX: J96.21 Acute and chronic respiratory failure with hypoxia (principal); I50.43 Acute on chronic combined systolic (congestive) and diastolic (congestive) heart failure; I21.A1 Myocardial infarction type 2; G93.41 Metabolic encephalopathy; E43 Unspecified severe protein-calorie malnutrition; I13.0 Hypertensive heart and chronic kidney disease with heart failure and stage 1 through stage 4 chronic kidney disease, or unspecified chronic kidney disease; J44.1 Chronic obstructive pulmonary disease with (acute) exacerbation; I48.20 Chronic atrial fibrillation, unspecified; D68.69 Other thrombophilia; E78.5 Hyperlipidemia, unspecified; I25.10 Atherosclerotic heart disease of native coronary artery without angina pectoris; D64.9 Anemia, unspecified; N18.9 Chronic kidney disease, unspecified; E66.01 Morbid (severe) obesity due to excess calories; Z20.828 Contact with and (suspected) exposure to other viral communicable diseases; M19.90 Unspecified osteoarthritis, unspecified site; E11.22 Type 2 diabetes mellitus with diabetic chronic kidney disease; Z51.5 Encounter for palliative care; I25.5 Ischemic cardiomyopathy; Z98.61 Coronary angioplasty status; M25.461 Effusion, right knee; Z90.49 Acquired absence of other specified parts of digestive tract; Z90.89 Acquired absence of other organs; Z68.37 Body mass index [BMI] 37.0-37.9, adult; Z81.1 Family history of alcohol abuse and dependence; Z88.2 Allergy status to sulfonamides; Z79.82 Long term (current) use of aspirin; E11.21 Type 2 diabetes mellitus with diabetic nephropathy
CPT/HCPCS: 36415; 36600; 70450; 71045; 71275; 80053; 81001; 82550; 82728; 82805; 82962; 83036; 83615; 83735; 83880; 84439; 84443; 84484; 85025; 85379; 85610; 85730; 86141; 86850; 86900; 86901; 86920; 87205; 93005; 94640; 94660; 96361; 96372; 96374; 96375; 97163; 99291; G0378; J1100; J1815; J2405

== ENCOUNTER 2020-04-30 14:53 | Inpatient (IN) | payer OTHER ==
[~2020-04-30] VITALS: Ht 172.7 cm; Wt 109.6 kg
[2020-04-30] MEDS ORDERED: IPRATROPIUM BROM 0.5 MG/2.5ML INH SOL NEB ONE (15:15)
[2020-04-30] MEDS ORDERED: ALBUTEROL SULF 2.5 MG/0.5ML(0.5%) NEB SOLN NEB ONE (15:15)
[2020-04-30] MEDS ORDERED: FUROSEMIDE 20 MG/2 ML VIAL IV ONE (15:15)
[2020-04-30] MEDS ORDERED: methylPREDNISolone SOD SUCC 125 MG/2 ML VL IV ONE (15:15)
[2020-04-30 16:00] LABS: Basophils # (auto) 0.1 10 ^3/uL (0-0.2); Basophils % (auto) 1.1 % (0.0-2.0); Eosinophils # (auto) 0 10 ^3/uL (0-0.8); Eosinophils % (auto) 0.3 % (0.0-7.0); Nucleated Red Blood Cells % 0.1 %
[2020-04-30 16:02] LABS: Lymphocytes # (auto) 0.8 10 ^3/uL (0.4-5.4); Lymphocytes % (auto) 8.3 % (10.0-50.0); Mean Corpuscular Hgb Conc. 30.9 g/dL (32.0-36.0); Mean Corpuscular Volume 74.5 fL (80.0-100.0); Monocytes # (auto) 1.3 10 ^3/uL (0-1.3); Monocytes % (auto) 12.7 % (0.0-12.0); Neutrophils # (auto) 7.7 10 ^3/uL (1.6-8.6); Neutrophils % (auto) 77.6 % (37.0-80.0); Platelet Count (auto) 351 10^3/uL (140-450); Red Blood Cells 3.49 10^6/uL (4.5-5.90)
[2020-04-30 16:04] LABS: Red Cell Distribution Width 20.7 % (11.8-14.3)
[2020-04-30 16:19] LABS: Lactic Acid w/Reflex 2.9 mmol/L (0.4-2.0)
[2020-04-30 16:22] LABS: Albumin 2.6 g/dL (3.4-5.0); BUN/Creatinine Ratio 18.8; Calcium 8.3 mg/dL (8.5-10.1)
[2020-04-30 16:27] LABS: Bilirubin, Total 0.8 mg/dL (0.2-1.0); Total Protein 6.8 g/dL (6.4-8.2)
[2020-04-30] MEDS ORDERED: SODIUM CHLORIDE 0.9% 1,000 ML IV SCH (18:30)
[2020-04-30] MEDS ORDERED: NITROGLYCERIN 0.4 MG SL TAB SL PRN (18:30)
[2020-04-30] MEDS: IPRATROPIUM BROM 0.5 MG/2.5ML INH SOL NEB SCH (19:05)
[2020-04-30] MEDS: ALBUTEROL SULF 2.5 MG/0.5ML(0.5%) NEB SOLN NEB PRN (19:06)
[2020-04-30 20:32] VITALS: BP 95/49
--- NOTE | 2020-04-30 21:30 | NUR ---
Telemetry admit from [facility] admitted to Telemetry unit. Patient oriented to primary RN, unit, room, bed, and unit policies regarding patient care and visiting hours. Patient now on continuous telemetry monitoring, tele box #32 and telemetry reading on arrival to unit is NSR. Patient placed on bedside oxygen, weighed by bedscale and encouraged to call if they need something. All questions and concerns addressed, patient verbalized understanding. Bed in lowest locked position, call light within reach, side rails up x2, fall precautions in place. Will continue to monitor Q1hr and PRN.
[2020-04-30 22:20] VITALS: BP 95/49
[2020-04-30 22:58] VITALS: BP 98/48
[2020-05-01] MEDS: ALBUTEROL SULF 2.5 MG/0.5ML(0.5%) NEB SOLN NEB PRN ×2 (00:23→11:29)
[2020-05-01] MEDS: IPRATROPIUM BROM 0.5 MG/2.5ML INH SOL NEB SCH ×5 (00:23→22:25)
--- NOTE | 2020-05-01 05:00 | NUR ---
Rounds Patient complaining of feeling SOB. Upon assessment oxygen is off and patient is laying flat in bed. Reapplied nasal cannula and positioned patient in semi fowlers. Patient stated he would like to apply simple mask as he still feels SOB. Simple mask applied at 10L O2 satting at 97%. Patient stating "I'm feeling better now".
[2020-05-01 05:13] VITALS: BP 96/68
[2020-05-01 08:38] LABS: Basophils # (auto) 0 10 ^3/uL (0-0.2); Eosinophils # (auto) 0 10 ^3/uL (0-0.8); Lymphocytes # (auto) 0.4 10 ^3/uL (0.4-5.4); Lymphocytes % (auto) 5.4 % (10.0-50.0); Monocytes # (auto) 0.3 10 ^3/uL (0-1.3); White Blood Cell 7.7 10^3/uL (4.4-10.8)
[2020-05-01 08:39] LABS: Hemoglobin 7.8 g/dL (13.5-17.5); Mean Corpuscular Hemoglobin 22.9 pg (28.0-32.0); Monocytes % (auto) 3.4 % (0.0-12.0); Neutrophils % (auto) 91.2 % (37.0-80.0); Nucleated Red Blood Cells % 0.1 %; Platelet Count (auto) 334 10^3/uL (140-450); Red Blood Cells 3.39 10^6/uL (4.5-5.90)
[2020-05-01 08:48] LABS: Red Cell Distribution Width 20.5 % (11.8-14.3)
[2020-05-01 09:00] VITALS: BP 122/68
[2020-05-01 09:00] LABS: Calcium 8.6 mg/dL (8.5-10.1); Potassium 4.4 mmol/L (3.5-5.1)
[2020-05-01 09:02] LABS: BUN/Creatinine Ratio 21.5
[2020-05-01] MEDS ORDERED: ENOXAPARIN SOD 30 MG/0.3 ML SYRINGE SC SCH (10:00)
--- NOTE | 2020-05-01 10:30 | NUR ---
Opening Shift Note Assumed care of patient, awake and alert. No S/S of distress/SOB or pain. Instructed on POC and to call for assist PRN, will continue to monitor for changes Q1hr and PRN.
--- NOTE | 2020-05-01 12:56 | NUR ---
Dr. Pérez in to see patient as hospitalist.
[2020-05-01 13:00] VITALS: BP 116/64
[2020-05-01] MEDS ORDERED: FUROSEMIDE 40 MG TAB PO ONE (13:00)
--- NOTE | 2020-05-01 13:46 | NUR ---
WOUND CARE NOTE: Wound care in to see patient per wound care request regarding "Right Foot wound" that are noted present on admission. Bedside nurse took photograph of patient's wound upon admission for reference. Patient is 74 years old male with admitting diagnosis of CHF, COPD. Patient is resting in bed in Rm. 222B. Patient is awake,alert and oriented. He's in no stated pain at this time and he appears to be in no pain using Jacobson Bill Faces Pain Scale. He's self turning and repositioning. His Cody score is 17. Noted patient's Rt dorsal foot has 1.5x1.5cm open full thickness wound with no measurable depth. Wound bed is red with yellow slough, eliezer wound is pink, scant serous drainage noted, no odor noted. His R heel noted with 1.5x1cm dry, scabbed wound. He has linear pink scar tissue to Rt lateral ankle. He reported that he has sixteen surgeries to his Rt ankle/foot many years ago and has rods. Cleansed patient's Rt foot wound with NS,patted dry with gauze, applied Thera honey gel and covered with Opti foam gentle dressing per MD order. Patient's inner buttocks and groin noted with mild red rashes which he reported from wearing disposable brief sat home. He's receiving BID/PRN cleaning and application of Barrier cream to sacral, buttocks and perineum per MD order. Patient tolerated well, no other wound noted. No further wound care monitoring needed at this time. Nurse aide at bedside. RECOMMENDATION: Nursing to continue with EOD/PRN dressing change to Rt foot wound and BID/PRN cleaning and application of Barrier cream to buttocks perineum per MD order, redistribute pressure points with pillows, follow up with Form Builder Helper as out patient. Addendum: 05/01/20 at 1721 by Josselin Santana RN Amended: Links added.
--- NOTE | 2020-05-01 14:30 | NUR ---
Patient angry, states we are sending him home sick. Patient acknowledges Dr. Pérez informed him that he will be discharged on Sunday, 05/02. Patient states he wants a second opinion. He states he will "go to court" if the doctor sends him home. Dr. Pérez informed. Will continue to monitor.
[2020-05-01] MEDS ORDERED: DEXTROSE (50%) 50ML SYRG IV PRN (16:30)
--- NOTE | 2020-05-01 16:31 | NUR ---
Patient requesting his blood sugar be checked. Result: 257. Patient does not have an order for accucheck or insulin coverage. informed. New order received.
--- NOTE | 2020-05-01 16:58 | NUR ---
Patient having cough. Dr. Pérez informed. Order received for cough medication. Will continue to monitor.
[2020-05-01] MEDS: InsuLIN REG 1unit/0.01ml Soln (100units/ml) SC SCH ×2 (17:00→22:15)
[2020-05-01] MEDS: ACCU-CHEK COMFORT CURVE STRIP VI SCH ×2 (17:07→22:14)
--- NOTE | 2020-05-01 17:08 | NUR ---
Patient C/O chest pain 05/10. B/P 125/80, HR 98. 1 ntg SL given. EKG done, shown to Dr. Pérez. Patient states no pain after nitro SL given. Will continue to monitor.
--- NOTE | 2020-05-01 18:10 | NUR ---
Patient resting quietly. Denies chest pain. Will continue to monitor.
[2020-05-01] MEDS: ALBUTEROL SULF 2.5 MG/0.5ML(0.5%) NEB SOLN NEB SCH ×2 (18:32→22:25)
--- NOTE | 2020-05-01 20:46 | NUR ---
Patient C/O chest pain 05/10. B/P 146/88, HR 111. 1 ntg SL given. EKG done, Sinus tachy, same as previous EKG MD aware Patient B/P 111/51 HR 114. Pain 03/10. No more nitro given at this time due to decreased blood pressure. Patient states he might have heartburn due to the fact pain started right after dinner. Will continue to monitor.
--- NOTE | 2020-05-01 20:50 | NUR ---
Rt paged Patient states he is having trouble breathing, oxygen sat 88% on 6L nasal canula. RT at bedside switched patient to oxymizer. Patients oxygen saturation increased to 91%. call light within reach. Will continue to monitor.
[2020-05-01] MEDS: methylPREDNISolone SOD SUCC 40 MG/ML VL IV SCH (21:32)
[2020-05-01] MEDS: guaiFENesin-DM 100/10mg/5ml SYR PO PRN (22:12)
[2020-05-01] MEDS: BUDESONIDE (INHALATION) 0.5 MG/2 ML NEB NEB SCH (22:25)
[2020-05-01 22:26] VITALS: BP 87/41
--- NOTE | 2020-05-01 22:45 | NUR ---
Rt paged Patient is now put on bipap. Call light within reach, will continue to monitor.
--- NOTE | 2020-05-01 23:00 | NUR ---
family called spoke to patients sister after password confirmed. All questions answered, will continue to monitor.
[2020-05-02] VITALS (7 sets, daily range): BP systolic 100–143; BP diastolic 64–80
--- NOTE | 2020-05-02 01:40 | NUR ---
Respiratory note: PATIENT WAS TAKEN OFF BIPAP AT THIS TIME BY RT FINK. PT PLACED BACK ON 5L NASAL CANNULA. HE STATED THAT HE WAS FEELING BETTER AND WANTED TO COME OFF.
[2020-05-02] MEDS: ALBUTEROL SULF 2.5 MG/0.5ML(0.5%) NEB SOLN NEB SCH ×6 (02:18→21:44)
[2020-05-02] MEDS: IPRATROPIUM BROM 0.5 MG/2.5ML INH SOL NEB SCH ×6 (02:18→21:44)
--- NOTE | 2020-05-02 03:04 | NUR ---
RT paged Patient is calling for a breathing treatment, he states difficultly catching his breath. Oxygen saturation 88% on 6L nasal canula. Awaiting RT.
[2020-05-02] MEDS: InsuLIN REG 1unit/0.01ml Soln (100units/ml) SC SCH ×2 (06:36→12:03)
[2020-05-02] MEDS: ACCU-CHEK COMFORT CURVE STRIP VI SCH ×2 (06:44→12:01)
--- NOTE | 2020-05-02 07:23 | NUR ---
closing note Endorsed care to day shift RN no sob or distress noted.
[2020-05-02 07:38] LABS: Basophils # (auto) 0 10 ^3/uL (0-0.2); Eosinophils # (auto) 0 10 ^3/uL (0-0.8); Hemoglobin 7.8 g/dL (13.5-17.5); Lymphocytes # (auto) 0.4 10 ^3/uL (0.4-5.4); Monocytes # (auto) 0.6 10 ^3/uL (0-1.3); Neutrophils # (auto) 9.8 10 ^3/uL (1.6-8.6)
[2020-05-02 07:40] LABS: Hematocrit 25.5 % (41.0-53.0); Lymphocytes % (auto) 3.3 % (10.0-50.0); Mean Corpuscular Hemoglobin 22.4 pg (28.0-32.0); Mean Corpuscular Hgb Conc. 30.4 g/dL (32.0-36.0); Mean Corpuscular Volume 73.6 fL (80.0-100.0); Monocytes % (auto) 5.6 % (0.0-12.0); Neutrophils % (auto) 91.1 % (37.0-80.0); Nucleated Red Blood Cells % 0.1 %; Platelet Count (auto) 322 10^3/uL (140-450); Red Blood Cells 3.47 10^6/uL (4.5-5.90); White Blood Cell 10.8 10^3/uL (4.4-10.8)
[2020-05-02 07:58] LABS: Potassium 4.2 mmol/L (3.5-5.1)
[2020-05-02 08:03] LABS: Red Cell Distribution Width 20.6 % (11.8-14.3)
[2020-05-02 08:08] LABS: Albumin 2.5 g/dL (3.4-5.0); Bilirubin, Total 0.6 mg/dL (0.2-1.0); Calcium 8.3 mg/dL (8.5-10.1); Total Protein 6.7 g/dL (6.4-8.2)
[2020-05-02] MEDS ORDERED: ENOXAPARIN SOD 30 MG/0.3 ML SYRINGE SC ONE (09:15)
[2020-05-02] MEDS ORDERED: FUROSEMIDE 40 MG TAB PO SCH (10:00)
[2020-05-02] MEDS: methylPREDNISolone SOD SUCC 40 MG/ML VL IV SCH ×2 (10:30→21:34)
[2020-05-02] MEDS: APIXABAN 5 MG TAB PO SCH ×2 (10:31→21:36)
[2020-05-02] MEDS ORDERED: POTASSIUM CHL 20 Meq TABLET PO ONE (11:30)
[2020-05-02] MEDS ORDERED: METOPROLOL TARTRATE 25 MG TAB PO ONE (11:30)
[2020-05-02] MEDS ORDERED: PANTOPRAZOLE 40 MG TAB PO ONE (11:30)
[2020-05-02] MEDS ORDERED: metOLazone 5 MG TAB PO ONE (11:30)
[2020-05-02] MEDS: BUDESONIDE (INHALATION) 0.5 MG/2 ML NEB NEB SCH ×2 (11:31→17:51)
--- NOTE | 2020-05-02 13:57 | NUR ---
Nutrition Consult Notes Please refer to link for full assessment notes. Est Energy needs: 3332-1811 kcals (17-20 kcal/kgBW) Est Protein needs: 148-198 gms/day (1.2-1.6 gm/kgBW) d/t pt respiratory distress Will continue to monitor and reassess prn. Addendum: 05/02/20 at [address] Amended: Links added.
--- NOTE | 2020-05-02 15:00 | NUR ---
continued to speak with patient concerning their code status. the patient told me he wants everything that can be done to be done. i will relay this information to Dr. Pérez.e
[2020-05-02] MEDS: FUROSEMIDE 40 MG/4 ML VIAL IV SCH (18:17)
[2020-05-02] MEDS: TAMSULOSIN HYDROCHLORIDE 0.4 MG CAP PO SCH (18:17)
--- NOTE | 2020-05-02 20:45 | NUR ---
Respiratory note: PT DEMANDING TO BE TAKEN OFF BIPAP. PT REMOVED AND PLACED ON OXYMIZER FLUSHED. SPO2 88%. PT DOES HAVE SOB AND WOB. EXPLAINED TO PT THE BENEFITS OF WEARING BIPAP AND HOW IT IS HELPING HIM AND WHY IT IS IMPORTANT FOR HIM TO WEAR THE BIPAP AND HE STATED " IM NOT HERE FOR THAT AND IM NOT HERE TO ARGUE WITH YOU". RN AWARE. WILL CONTINUE TO MONITOR PT.
--- NOTE | 2020-05-02 20:47 | NUR ---
LOW 02 SAT ; PT REFUSING BIPAP PATIENT OXYGEN SATURATION OFF OF BIPAP AND ON 15 L OF OXYGEN ON OXYMIZER. OXYGEN SATURATION NOW 85% FROM PREVIOUS 91% ON BIPAP. PATIENT CONTINUES TO REQUEST BIPAP MACHINE OFF. RESPIRATORY THERAPIST CALLS AND AT BEDSIDE PATIENT STATES PATIENT, "I AM THE PATIENT. I HAVE RIGHTS. I WANT THIS OFF. I WANT TO PEE. I WANT TO BRUSH MY TEETH. I WANT TO DRINK WATER. SCRATCH MY BACK." PATIENT EDUCATION CONTINUES TO BE REINFORCED AND EDUCTED ON DANGERS OF HAVING CHRONIC HYPOXEMIA AND LOW OXYGEN SATURATION. PATIENT VERBALIZED UNDERSTANDING AND REFUSES. PATIENT EDUCATED AND URGE AGAIN REINFORCED AFTER GIVING PATIENT TIME TO ATTEND TO HIS NEEDS. PATIENT CONTINUES TO REFUSE. RT AWARE AND MD AWARE. WILL CONTINUE TO MONITOR.
--- NOTE | 2020-05-02 21:00 | NUR ---
CONTINUOUS CALLS PATIENT CONTINUOUSLY REQUESTS FOR BIPAP MACHINE TO BE TAKEN OFF AND BE PUT BACK ON AGAIN. RT PAGED FOUR TIME SINCE START OF SHIFT DUE TO PATIENT'S LOW OXYGEN SATURATION REQUIRING BIPAP AND PATIENT'S IMPULSIVE DECISIONS TO BE OFF AND ON. VARIOUS RT'S AND THIS RN CONTINUE TO EDUCATE PATIENT ON IMPORTANCE OF MAINTAINING BIPAP FOR ADEQUATE OXYGENATION. PATIENT VERBALIZED UNDERSTANDING AND CONTINUES TO REFUSES. WILL CONTINUE TO MONITOR.
[2020-05-02] MEDS: METOPROLOL TARTRATE 25 MG TAB PO SCH (21:35)
[2020-05-02] MEDS: AMIODARONE HCL 200 MG TAB PO SCH (21:36)
[2020-05-02] MEDS: POTASSIUM CHL 20 Meq TABLET PO SCH (21:36)
[2020-05-02] MEDS: HYDROcodone-ACET 5/325MG TAB PO PRN (21:37)
[2020-05-02] MEDS: INSULIN LANTUS (GLARGINE) 1 /0.01ml (100units/ml) SC SCH (21:38)
--- NOTE | 2020-05-02 21:40 | NUR ---
NONREBREATHER PATIENT NOW ON REBREATHER. OXYGEN SATURATION NOW AT 98%. WILL CONTINUE TO MONITOR.
--- NOTE | 2020-05-02 21:50 | NUR ---
FAMILY AFTER PASSWORD VERIFIED, PATIENT'S SISTER (LISTED NEXT OF KIN) SPOKE TO OVER PHONE. ALL QUESTIONS AND CONCERNS ADDRESSED. WILL CONTINUE TO MONITOR.
--- NOTE | 2020-05-02 21:50 | NUR ---
NEW ORDER PATIENT CONTINUES TO BE VERY ANXIOUS AND AFTER REBREATHER APPLIED, PT REQUESTS TO BE PUT BACK ON OXYMIZER DESPITE INADEQUATE 02 SATURATION WITH OXYMIZER. ON-CALL HOSPITALIST UPDATED ON PATIENT STATUS. NEW ORDER RECEIVED, READ BACK AND VERIFIED (SEE NEW ORDERS). WILL CONTINUE TO MONITOR.
--- NOTE | 2020-05-02 22:00 | NUR ---
PT CANO NOT WANT REBREATHER PATIENT STATES HE WANTS TO BE REPLACED ONTO OXYMIZER. AGAIN, EDUCATION REINFORCED AND PATIENT INFORMED OF HIS RIGHTS TO MAKE DECISIONS. PATIENT HESITANTLY AGREES TO COMPLY WITH NONREBREATHER. WILL CONTINUE TO MONITOR.
--- NOTE | 2020-05-02 22:10 | NUR ---
IV removal IV DC'd with clean sterile technique, catheter fully intact. Pressure dressing applied to site. Patient tolerated well.
[2020-05-02] MEDS: LORazepam 0.5 MG TAB PO PRN (22:17)
--- NOTE | 2020-05-02 22:20 | NUR ---
IV insertion IV access obtained, via clean sterile technique by inserting 22 gauge catheter at right forearm after 2 attempts. IV secured properly. No trauma to site. Patient tolerated well.
[2020-05-02] MEDS: guaiFENesin-DM 100/10mg/5ml SYR PO PRN (23:05)
[2020-05-03] VITALS (9 sets, daily range): BP systolic 87–114; BP diastolic 55–72
[2020-05-03] MEDS: ALBUTEROL SULF 2.5 MG/0.5ML(0.5%) NEB SOLN NEB SCH ×6 (02:02→22:00)
[2020-05-03] MEDS: IPRATROPIUM BROM 0.5 MG/2.5ML INH SOL NEB SCH ×6 (02:02→22:00)
[2020-05-03] MEDS: LORazepam 0.5 MG TAB PO PRN (04:53)
[2020-05-03] MEDS: HYDROcodone-ACET 5/325MG TAB PO PRN (04:53)
[2020-05-03] MEDS: FUROSEMIDE 40 MG/4 ML VIAL IV SCH ×3 (05:34→17:43)
[2020-05-03] MEDS: BUDESONIDE (INHALATION) 0.5 MG/2 ML NEB NEB SCH ×2 (05:56→22:00)
[2020-05-03] MEDS: guaiFENesin-DM 100/10mg/5ml SYR PO PRN (06:28)
[2020-05-03] MEDS: METOPROLOL TARTRATE 25 MG TAB PO SCH (09:41)
[2020-05-03] MEDS: methylPREDNISolone SOD SUCC 40 MG/ML VL IV SCH (09:50)
[2020-05-03] MEDS: POTASSIUM CHL 20 Meq TABLET PO SCH ×2 (09:51→22:21)
[2020-05-03] MEDS: AMIODARONE HCL 200 MG TAB PO SCH ×2 (09:51→22:20)
[2020-05-03] MEDS: APIXABAN 5 MG TAB PO SCH ×2 (09:51→22:21)
[2020-05-03] MEDS: PANTOPRAZOLE 40 MG TAB PO SCH (09:52)
[2020-05-03] MEDS: INSULIN LANTUS (GLARGINE) 1 /0.01ml (100units/ml) SC SCH ×2 (09:52→22:25)
[2020-05-03] MEDS ORDERED: FERROUS SULFATE 325 MG TAB PO ONE (10:30)
--- NOTE | 2020-05-03 11:04 | NUR ---
I faxed transfer order to [facility].
--- NOTE | 2020-05-03 17:19 | NUR ---
4124 05/03/20 I called [facility] and spoke with monitoring analyst Sammy-requested to speak with shelter case manager regarding transfer order and continued inpatient authorization. Per Sammy the assigned shelter case manager is Angela, she is not available right now-he will have her give me a call regarding the transfer request and continued authorization request. Sammy is unable to confirm that they received the transfer order (confirmation received that fax went through).
[2020-05-03 17:33] LABS: Urine Bacteria NONE SEEN /hpf (None Seen); Urine Blood TRACE /uL (Negative); Urine Hyaline Cast MANY /lpf (0 - 2); Urine Mucus FEW (None Seen); Urine Specific Gravity 1.018 (1.001-1.035); Urine WBC 2 /hpf (0 - 3)
[2020-05-03] MEDS: TAMSULOSIN HYDROCHLORIDE 0.4 MG CAP PO SCH ×2 (17:38→17:43)
[2020-05-03] MEDS: FERROUS SULFATE 325 MG TAB PO SCH ×2 (17:38→17:43)
--- NOTE | 2020-05-03 18:21 | NUR ---
PT REQUESTED TO BE REMOVED FROM BIPAP. PT PLACED ON NON REBREATHER MASK AT 15 LPM, HR 86 POX 93%. PT HAS SITTER AT BEDSIDE. PT REFUSED MED NEB TX AT THIS TIME STATED HE HAD A SORE THROAT AND IS UNABLE. PT EDUCATED ON IMPORTANCE OF TAKING MEDICATION, BUT CONTINUED TO DENY NEED. PT TOLD HE WILL NOT RECEIVE HIS TX UNTIL HIS NEXT SCHEDULED DOSE AND VERBALIZED UNDERSTANDING.
--- NOTE | 2020-05-03 19:00 | NUR ---
Opening Shift Note Assumed care of patient, awake and alert. Patient on 15 LPM via non rebreather mask, sitting up on the side of the bed. Instructed on POC and to call for assist PRN, will continue to monitor. Sitter at bed side, patient continues to take his O2 mask off and desaturates very rapidly. Patient requires constant supervision.
--- NOTE | 2020-05-04 01:55 | NUR ---
PT REQUESTED TO BE TAKEN OFF BIPAP. STATED HE COULD NO LONGER TOLERATED AND PLACED ON FLUSHED NON REBREATHER. POX MAINTAINING BETWEEN 88-90%. WILL CONTINUE TO MONITOR.
--- NOTE | 2020-05-04 01:55 | NUR ---
Patient on Bi pap, was complaining of SOB with the 15 LPM.
[2020-05-04] MEDS: IPRATROPIUM BROM 0.5 MG/2.5ML INH SOL NEB SCH ×6 (02:06→22:00)
[2020-05-04] MEDS: ALBUTEROL SULF 2.5 MG/0.5ML(0.5%) NEB SOLN NEB SCH ×6 (02:06→22:00)
[2020-05-04 05:00] VITALS: BP 104/61
[2020-05-04] MEDS: FUROSEMIDE 40 MG/4 ML VIAL IV SCH (05:30)
[2020-05-04] MEDS: BUDESONIDE (INHALATION) 0.5 MG/2 ML NEB NEB SCH ×2 (06:07→19:04)
[2020-05-04 08:00] VITALS: BP 133/76
[2020-05-04] MEDS: FERROUS SULFATE 325 MG TAB PO SCH ×2 (08:21→18:13)
[2020-05-04] MEDS: APIXABAN 5 MG TAB PO SCH ×2 (09:36→21:42)
[2020-05-04] MEDS: AMIODARONE HCL 200 MG TAB PO SCH ×2 (09:36→21:42)
[2020-05-04] MEDS: POTASSIUM CHL 20 Meq TABLET PO SCH (09:37)
[2020-05-04] MEDS: PANTOPRAZOLE 40 MG TAB PO SCH (09:37)
[2020-05-04] MEDS: INSULIN LANTUS (GLARGINE) 1 /0.01ml (100units/ml) SC SCH ×2 (09:40→21:44)
[2020-05-04] MEDS ORDERED: methylPREDNISolone SOD SUCC 125 MG/2 ML VL IV ONE (10:45)
[2020-05-04] MEDS: DOXYCYCLINE 100MG/250ML 250 ML IV SCH ×2 (11:00→21:42)
--- NOTE | 2020-05-04 11:28 | NUR ---
assessment Patient is a 74 year old male who is alert and oriented. Prior to admission patient was on respite at [facility] with [facility]. Patient was being admitted to hospice when the admitting nurse found him to be in respiratory distress with po2 in the 70's. Patient was transferred to ER and admitted again. Patient will go home on hospice on discharge. Patient has home 02, fww, and a wheelchair for home use. I informed patient I will continue to monitor and follow up as appropriate. Patient verbalized understanding and agreed to discharge plan home on hospice. Addendum: 05/04/20 at 1132 by Tess BATES Amended: Links added.
[2020-05-04 14:23] LABS: Basophils # (auto) 0 10 ^3/uL (0-0.2); Eosinophils # (auto) 0 10 ^3/uL (0-0.8); Lymphocytes # (auto) 0.6 10 ^3/uL (0.4-5.4); Monocytes # (auto) 0.4 10 ^3/uL (0-1.3); Nucleated Red Blood Cells % 0.2 %
[2020-05-04 14:26] LABS: Basophils % (auto) 0.1 % (0.0-2.0); Hematocrit 27.1 % (41.0-53.0); Hemoglobin 8.5 g/dL (13.5-17.5); Lymphocytes % (auto) 4.5 % (10.0-50.0); Mean Corpuscular Hemoglobin 22.3 pg (28.0-32.0); Mean Corpuscular Hgb Conc. 31.2 g/dL (32.0-36.0); Mean Corpuscular Volume 71.6 fL (80.0-100.0); Monocytes % (auto) 3.3 % (0.0-12.0); Neutrophils # (auto) 11.4 10 ^3/uL (1.6-8.6); Neutrophils % (auto) 92.1 % (37.0-80.0); Platelet Count (auto) 303 10^3/uL (140-450); Red Blood Cells 3.79 10^6/uL (4.5-5.90); White Blood Cell 12.4 10^3/uL (4.4-10.8)
[2020-05-04 14:29] LABS: Red Cell Distribution Width 20.6 % (11.8-14.3)
[2020-05-04 14:43] LABS: Calcium 9.3 mg/dL (8.5-10.1); Potassium 4.3 mmol/L (3.5-5.1)
[2020-05-04 14:45] LABS: BUN/Creatinine Ratio 31.9
[2020-05-04 14:47] LABS: % Iron Saturation 21.1 % (20-55)
[2020-05-04] MEDS: TAMSULOSIN HYDROCHLORIDE 0.4 MG CAP PO SCH (18:13)
--- NOTE | 2020-05-04 19:00 | NUR ---
Opening Note Assumed care of patient, awake and alert. Patient on BiPap, using accessories muscles to breath. O2 93% No S/S of distress or pain. Instructed on POC and to call for assist PRN, sitter at bedside, will continue to monitor.
[2020-05-04 20:00] VITALS: BP 112/49
--- NOTE | 2020-05-04 20:05 | NUR ---
Patient requested to be placed on bedside commode, he wanted the BiPap off and was placed on non rebreather mask, patient disaturated to 70% very rapidly, He panic and wanted the the Oxymizer, that was even worse and RN called RT. RT placed the patient on non rebreather mask, talked to him to make relax and O2 improved. Once patient was relaxed RT placed him on BiPap. Now patient is resting in bed, he was encouraged to reposition himself in bed to maintain indepence, patient gets short of breath on exertion, but tolerated well.
--- NOTE | 2020-05-04 21:10 | NUR ---
WOUND CARE NOTE Dressing placed on right foot.
[2020-05-04] MEDS: methylPREDNISolone SOD SUCC 125 MG/2 ML VL IV SCH (21:42)
[2020-05-05] MEDS: IPRATROPIUM BROM 0.5 MG/2.5ML INH SOL NEB SCH ×6 (02:13→22:56)
[2020-05-05] MEDS: ALBUTEROL SULF 2.5 MG/0.5ML(0.5%) NEB SOLN NEB SCH ×6 (02:13→22:56)
--- NOTE | 2020-05-05 02:24 | NUR ---
Patient woke up hysterical asking for fresh air, wanted the BiPap off, then he was screaming that he needed the RT to get him more air, this lasted 5 min, patient in the mean time was holding the BiPap by his face on and off. Once RT came he got a breathing treatment, had water, his linen were changed. Now patient is resting in bed watching tv with sitter at bedside.
--- NOTE | 2020-05-05 05:18 | NUR ---
Patient awake, restless, asking sitter to remove his mask.
[2020-05-05] MEDS: BUDESONIDE (INHALATION) 0.5 MG/2 ML NEB NEB SCH ×2 (06:20→18:36)
[2020-05-05] MEDS ORDERED: FUROSEMIDE 40 MG/4 ML VIAL IV SCH (07:00)
[2020-05-05 08:00] VITALS: BP 119/67
[2020-05-05] MEDS: FERROUS SULFATE 325 MG TAB PO SCH ×2 (08:32→18:13)
[2020-05-05] MEDS: HYDROcodone-ACET 5/325MG TAB PO PRN ×3 (08:32→21:07)
[2020-05-05 09:00] VITALS: BP 119/67
[2020-05-05 09:40] LABS: Basophils # (auto) 0 10 ^3/uL (0-0.2); Eosinophils # (auto) 0 10 ^3/uL (0-0.8); Lymphocytes # (auto) 0.3 10 ^3/uL (0.4-5.4); Monocytes # (auto) 0.3 10 ^3/uL (0-1.3)
[2020-05-05 09:42] LABS: Basophils % (auto) 0.2 % (0.0-2.0); Hematocrit 26.9 % (41.0-53.0); Hemoglobin 8.3 g/dL (13.5-17.5); Lymphocytes % (auto) 3.8 % (10.0-50.0); Mean Corpuscular Hemoglobin 22.1 pg (28.0-32.0); Mean Corpuscular Hgb Conc. 30.7 g/dL (32.0-36.0); Mean Corpuscular Volume 71.8 fL (80.0-100.0); Monocytes % (auto) 3.5 % (0.0-12.0); Neutrophils # (auto) 7.7 10 ^3/uL (1.6-8.6); Neutrophils % (auto) 92.5 % (37.0-80.0); Nucleated Red Blood Cells % 0.3 %; Platelet Count (auto) 286 10^3/uL (140-450); Red Blood Cells 3.74 10^6/uL (4.5-5.90); White Blood Cell 8.3 10^3/uL (4.4-10.8)
[2020-05-05 09:45] LABS: Red Cell Distribution Width 20.9 % (11.8-14.3)
[2020-05-05] MEDS: methylPREDNISolone SOD SUCC 125 MG/2 ML VL IV SCH ×3 (09:50→23:04)
[2020-05-05] MEDS: AMIODARONE HCL 200 MG TAB PO SCH ×2 (09:51→22:21)
[2020-05-05] MEDS: POTASSIUM CHL 20 Meq TABLET PO SCH (09:51)
[2020-05-05] MEDS: PANTOPRAZOLE 40 MG TAB PO SCH (09:52)
[2020-05-05] MEDS: INSULIN LANTUS (GLARGINE) 1 /0.01ml (100units/ml) SC SCH ×2 (09:53→23:04)
[2020-05-05] MEDS: APIXABAN 5 MG TAB PO SCH ×2 (09:56→22:21)
[2020-05-05 09:58] LABS: Calcium 9.1 mg/dL (8.5-10.1); Potassium 3.6 mmol/L (3.5-5.1)
[2020-05-05 10:00] LABS: BUN/Creatinine Ratio 33.1
--- NOTE | 2020-05-05 10:45 | NUR ---
Respiratory note: PT ASKED FOR BREAK FROM BIPAP AT THIS TIME, PLACED PT ON 15L NRB AT THIS TIME, PT MAINTAINING SAT OF 86-88% AT THIS TIME, SITTER NOTIFIED TO CALL RT IF SAT BEGINS TO DROP
--- NOTE | 2020-05-05 11:00 | NUR ---
Respiratory note: PLACED PT BACK ON BIPAP AT THIS TIME WITH ORIGINAL SETTINGS DUE TO PULSE OX SAT BEING 82%, PT TOLERATING WELL.
[2020-05-05] MEDS ORDERED: AZITHROMYCIN 500MG/ 250ML 250 ML IV ONE (11:15)
[2020-05-05] MEDS ORDERED: cefTRIAXone 1GM/50ML D5W 50 ML IV ONE (11:15)
[2020-05-05 13:00] VITALS: BP 97/56
--- NOTE | 2020-05-05 14:49 | NUR ---
Nutrition Followup Notes Pt wt is 124.1 kg Pt was awake on BIPAP with medical personnel at bedside when rounded this morning. Pt stated he has a reduced appetite d/t difficulty with breathing. Pt is with a Regular diet, appetite is good aeb ave 75% PO intake over 4 meals. Will continue to monitor PO status, skin status, pertinent labs and weight trends. Will f/u in 3-5 days. Est Energy needs: 9191-7717 kcals (17-20 kcal/kgBW) Est Protein needs: 148-198 gms/day (1.2-1.6 gm/kgBW) d/t pt respiratory distress Will continue to monitor and reassess prn. LABS: GLUC 276 H, GI: Pt had 1 BM on 05/03 per RN doc BS: 17 mod risk. Refer to wound assessment report for full details. PES: 1) Obesity r/t energy intake in excess of energy needs aeb 177% IBW and BMI of 41.6 kg/m2 2) Altered nutrition related lab values r/t current medical condition aeb hyperglycemia, hypocalcemia, mod hypoalbuminemia Comments Will continue to monitor PO status, skin status, pertinent labs and weight trends. Will f/u in 3-5 days. 1) Continue to closely monitor pt PO intake to meet at least 75% of meals 2) Consider a 2gNa/CCHO 75g diet 3) Consider a daily MVI with 500mg VitC BID 4) Continue current plan of care
[2020-05-05 17:00] VITALS: BP 110/70
[2020-05-05] MEDS: TAMSULOSIN HYDROCHLORIDE 0.4 MG CAP PO SCH (18:13)
[2020-05-05] MEDS: LORazepam 0.5 MG TAB PO PRN (18:29)
--- NOTE | 2020-05-05 19:30 | NUR ---
Opening Shift Note Assumed care of patient, awake and alert. No S/S of distress/SOB. Patient tolerating bipap well. Instructed on POC and to call for assist PRN, will continue to monitor for changes Q1hr and PRN.
[2020-05-05] MEDS: guaiFENesin-DM 100/10mg/5ml SYR PO PRN (22:22)
[2020-05-06] VITALS (7 sets, daily range): BP systolic 97–109; BP diastolic 58–65
[2020-05-06] MEDS: LORazepam 0.5 MG TAB PO PRN ×2 (01:01→06:40)
--- NOTE | 2020-05-06 02:17 | NUR ---
Patient had an episode of vomiting - patient requesting nausea medication. Paged hospitalist.
--- NOTE | 2020-05-06 02:20 | NUR ---
Received new orders for Zofran q8hr. Will administer accordingly and continue to monitor.
[2020-05-06] MEDS: ALBUTEROL SULF 2.5 MG/0.5ML(0.5%) NEB SOLN NEB SCH ×6 (02:29→21:24)
[2020-05-06] MEDS: IPRATROPIUM BROM 0.5 MG/2.5ML INH SOL NEB SCH ×6 (02:29→21:24)
[2020-05-06] MEDS ORDERED: ONDANSETRON HCL 4 MG/2 ML VIAL IV PRN (02:45)
[2020-05-06] MEDS: methylPREDNISolone SOD SUCC 125 MG/2 ML VL IV SCH ×3 (06:11→21:29)
[2020-05-06 08:11] LABS: BUN/Creatinine Ratio 36.8; Calcium 8.8 mg/dL (8.5-10.1); Potassium 3.4 mmol/L (3.5-5.1)
[2020-05-06] MEDS: FERROUS SULFATE 325 MG TAB PO SCH (08:11)
[2020-05-06] MEDS: cefTRIAXone 1GM/50ML D5W 50 ML IV SCH (08:11)
[2020-05-06] MEDS ORDERED: FUROSEMIDE 40 MG TAB PO SCH (10:00)
[2020-05-06] MEDS: APIXABAN 5 MG TAB PO SCH (10:26)
[2020-05-06] MEDS: AMIODARONE HCL 200 MG TAB PO SCH ×2 (10:26→21:31)
[2020-05-06] MEDS: AZITHROMYCIN 500MG/ 250ML 250 ML IV SCH (10:26)
[2020-05-06] MEDS: POTASSIUM CHL 20 Meq TABLET PO SCH (10:27)
[2020-05-06] MEDS: PANTOPRAZOLE 40 MG TAB PO SCH (10:28)
[2020-05-06] MEDS: INSULIN LANTUS (GLARGINE) 1 /0.01ml (100units/ml) SC SCH ×2 (10:29→21:27)
[2020-05-06] MEDS ORDERED: PANTOPRAZOLE 40 MG/10 ML VIAL INJ IV ONE (11:00)
[2020-05-06] MEDS ORDERED: FUROSEMIDE 40 MG/4 ML VIAL IV ONE (11:00)
[2020-05-06] MEDS: BUDESONIDE (INHALATION) 0.5 MG/2 ML NEB NEB SCH ×2 (11:01→18:12)
[2020-05-06] MEDS: FUROSEMIDE 40 MG/4 ML VIAL IV SCH (17:41)
[2020-05-06] MEDS: TAMSULOSIN HYDROCHLORIDE 0.4 MG CAP PO SCH (17:41)
--- NOTE | 2020-05-06 18:12 | NUR ---
Respiratory note: AT BEDSIDE FOR MED NEB TX, BEDSIDE PULSE OX NOTED AT 82%. PT'S MASK NOTED TO BE ON INCORRECTLY, MASK READJUSTED, REDNESS NOTED ON NOSE. SITTER STATES SHE DID NOT KNOW HOW TO REPLACE MASK AFTER BEING REMOVED, PT HAS BEEN ASKING FOR ICE CHIPS. SPO2 IMPROVED TO 93% AFTER MED NEB AND READJUSTING MASK, WILL CONTINUE TO MONITOR.
--- NOTE | 2020-05-06 19:10 | NUR ---
Opening Shift Note Assumed care of patient, awake and alert. No S/S of distress/SOB or pain. Instructed on POC and to call for assist PRN, will continue to monitor for changes Q1hr and PRN. Sitter present at bedside. Bed locked in lowest position, side rails up x 3, HOB elevated at least 30 degrees and call light is within reach.
--- NOTE | 2020-05-06 21:31 | NUR ---
Respiratory note: AT BEDSIDE, PT SLEEPING COMFORTABLY, ONCE STIMULATION PT BECAME RESTLESS, TRYING TO RIP OFF BIPAP MASK, STATES "HE CANNOT BREATHE", PT APPEARS ANXIOUS. PT MADE AWARE HE NEEDS TO KEEP MASK ON. SPO2 84%-89% ON 100% FIO2. RN AT BEDSIDE. MED NEB TX GIVEN IN LINE ON BIPAP. NO ADVERSE REACTIONS NOTED. WILL CONTINUE TO MONITOR.
--- NOTE | 2020-05-06 22:05 | NUR ---
Called/paged Hospitalist Alfredo Ulloa called. Waiting for call back. Continue care.
--- NOTE | 2020-05-06 23:00 | NUR ---
Hospitalist returned call Hospitalist Alfredo Ulloa returned call, updated on patient status and reason for call, orders received and verfied. Continue care.
[2020-05-07] VITALS (7 sets, daily range): BP systolic 95–112; BP diastolic 56–61
[2020-05-07] MEDS ORDERED: TEMAZEPAM 15 MG CAP PO ONE
[2020-05-07] MEDS: ALBUTEROL SULF 2.5 MG/0.5ML(0.5%) NEB SOLN NEB SCH ×6 (02:15→22:15)
[2020-05-07] MEDS: IPRATROPIUM BROM 0.5 MG/2.5ML INH SOL NEB SCH ×6 (02:15→22:15)
[2020-05-07] MEDS: methylPREDNISolone SOD SUCC 125 MG/2 ML VL IV SCH ×3 (05:36→22:00)
[2020-05-07] MEDS: FUROSEMIDE 40 MG/4 ML VIAL IV SCH ×2 (05:36→18:08)
[2020-05-07 06:29] LABS: Basophils # (auto) 0 10 ^3/uL (0-0.2); Eosinophils # (auto) 0 10 ^3/uL (0-0.8); Hemoglobin 8.7 g/dL (13.5-17.5); Lymphocytes # (auto) 0.3 10 ^3/uL (0.4-5.4); Mean Corpuscular Volume 71.6 fL (80.0-100.0); Monocytes # (auto) 0.3 10 ^3/uL (0-1.3)
[2020-05-07 06:31] LABS: BUN/Creatinine Ratio 45.9; Basophils % (auto) 0.2 % (0.0-2.0); Calcium 8.8 mg/dL (8.5-10.1); Hematocrit 28.2 % (41.0-53.0); Lymphocytes % (auto) 2.1 % (10.0-50.0); Mean Corpuscular Hemoglobin 22.2 pg (28.0-32.0); Monocytes % (auto) 2.5 % (0.0-12.0); Neutrophils # (auto) 13.5 10 ^3/uL (1.6-8.6); Neutrophils % (auto) 95.2 % (37.0-80.0); Nucleated Red Blood Cells % 0.3 %; Platelet Count (auto) 319 10^3/uL (140-450); Potassium 3.5 mmol/L (3.5-5.1); Red Blood Cells 3.94 10^6/uL (4.5-5.90); White Blood Cell 14.2 10^3/uL (4.4-10.8)
[2020-05-07 06:47] LABS: Red Cell Distribution Width 21.3 % (11.8-14.3)
--- NOTE | 2020-05-07 07:13 | NUR ---
CLOSING SHIFT NOTE Endorsed care to day shift RN
[2020-05-07] MEDS: AZITHROMYCIN 500MG/ 250ML 250 ML IV SCH (09:26)
[2020-05-07] MEDS: cefTRIAXone 1GM/50ML D5W 50 ML IV SCH (09:26)
[2020-05-07] MEDS: AMIODARONE HCL 200 MG TAB PO SCH (09:27)
[2020-05-07] MEDS: INSULIN LANTUS (GLARGINE) 1 /0.01ml (100units/ml) SC SCH ×2 (09:28→22:00)
[2020-05-07] MEDS ORDERED: PANTOPRAZOLE 40 MG/10 ML VIAL INJ IV SCH (10:00)
[2020-05-07] MEDS: BUDESONIDE (INHALATION) 0.5 MG/2 ML NEB NEB SCH ×2 (10:10→18:25)
[2020-05-07] MEDS ORDERED: PIPERACILLIN-TAZOB 3.375GM 100 ML IV ONE (11:45)
[2020-05-07] MEDS ORDERED: FUROSEMIDE 40 MG/4 ML VIAL IV ONE (11:45)
[2020-05-07] MEDS ORDERED: POTASSIUM CHL 20 Meq TABLET PO ONE (11:45)
[2020-05-07] MEDS ORDERED: metOLazone 5 MG TAB PO ONE (11:45)
--- NOTE | 2020-05-07 19:25 | NUR ---
Opening Shift Note Assumed care of patient, awake and alert. Patient appears to be in short of breath while sitting in a reclining chair. Patient currently on BIPAP with a SPO2 of 86%. Sitter is present at bedside. Instructed on POC and to call for assist PRN, will continue to monitor for changes Q1hr and PRN. Call light is within reach.
[2020-05-07] MEDS: LINEZOLID 600MG/300ML 300 ML IV SCH (20:00)
--- NOTE | 2020-05-07 20:00 | NUR ---
MEDICATION REFUSAL Patient refused his scheduled 30 units of Lantus. Blood sugar is 263. Educated the patient on risk of refusal. Patient continued to refuse Lantus.
[2020-05-07] MEDS: PIPERACILLIN-TAZOB 3.375GM 100 ML IV SCH (22:00)
[2020-05-08] MEDS: ALBUTEROL SULF 2.5 MG/0.5ML(0.5%) NEB SOLN NEB SCH ×6 (02:26→22:07)
[2020-05-08] MEDS: IPRATROPIUM BROM 0.5 MG/2.5ML INH SOL NEB SCH ×6 (02:26→22:07)
[2020-05-08 05:00] VITALS: BP 97/58
[2020-05-08] MEDS: PIPERACILLIN-TAZOB 3.375GM 100 ML IV SCH ×3 (06:00→22:48)
[2020-05-08] MEDS: FUROSEMIDE 40 MG/4 ML VIAL IV SCH ×2 (06:00→18:01)
[2020-05-08] MEDS: methylPREDNISolone SOD SUCC 125 MG/2 ML VL IV SCH ×3 (06:00→22:52)
[2020-05-08] MEDS: BUDESONIDE (INHALATION) 0.5 MG/2 ML NEB NEB SCH ×2 (06:13→18:51)
[2020-05-08 07:59] LABS: White Blood Cell 20.3 10^3/uL (4.4-10.8)
[2020-05-08 08:01] LABS: Hematocrit 32.2 % (41.0-53.0); Hemoglobin 9.6 g/dL (13.5-17.5); Mean Corpuscular Hemoglobin 21.5 pg (28.0-32.0); Mean Corpuscular Hgb Conc. 29.9 g/dL (32.0-36.0); Mean Corpuscular Volume 71.9 fL (80.0-100.0); Platelet Count (auto) 308 10^3/uL (140-450); Red Blood Cells 4.48 10^6/uL (4.5-5.90)
[2020-05-08 08:04] LABS: Red Cell Distribution Width 21.7 % (11.8-14.3)
[2020-05-08 08:06] LABS: Band Neutrophils % (manual) 0; Basophils % (manual) 0 (0.0-2.0); Blast Cells 0; Eosinophils % (manual) 0 (0-7); Metamyelocytes % 0; Myelocytes % 0; Promyelocytes % 0; Reactive Lymphocytes 0
[2020-05-08 08:21] LABS: BUN/Creatinine Ratio 40.6; Calcium 8.9 mg/dL (8.5-10.1); Potassium 3.5 mmol/L (3.5-5.1)
[2020-05-08 08:35] LABS: Lymphocytes % (manual) 1 (10.0-50.0); Monocytes % (manual) 2 (0-12)
[2020-05-08 09:00] VITALS: BP 106/49
[2020-05-08] MEDS: LINEZOLID 600MG/300ML 300 ML IV SCH ×2 (09:17→20:39)
[2020-05-08] MEDS ORDERED: metOLazone 5 MG TAB PO SCH (10:00)
--- NOTE | 2020-05-08 11:15 | NUR ---
MD ALMARAZ AWARE OF BUN, WASHCOAT WIPER RESULTS.
[2020-05-08] MEDS: INSULIN LANTUS (GLARGINE) 1 /0.01ml (100units/ml) SC SCH ×2 (11:26→22:00)
[2020-05-08 13:00] VITALS: BP 99/52
--- NOTE | 2020-05-08 13:37 | NUR ---
Nutrition Followup Notes Pt wt is 115.9 kg Pt was in bed resting at time of rounds. Pt with decreased appetite aeb pt po intake has decreased. Pt 0% po 05/06, NPO 05/07 and 0% po 05/08 so far. Consider adding Glucerna 1 carton TID. Consider adding appetite stimulant or alternate nutrition. Est Energy needs: 6137-6362 kcals (17-20 kcal/kgBW) Est Protein needs: 93-104 gms/day (0.8-0.9 gm/kgBW) pt with worsening renal failure Will continue to monitor and reassess prn. LABS: BUN 80H, Creat 1.97H, GLUC 258H, Alb 2.5L GI: Pt had 1 BM on 05/06 per RN doc BS: 20 low risk. Refer to wound assessment report for full details. PES: 1) Obesity r/t energy intake in excess of energy needs aeb 177% IBW and BMI of 41.6 kg/m2 2) Altered nutrition related lab values r/t current medical condition aeb hyperglycemia, hypocalcemia, mod hypoalbuminemia Comments Will continue to monitor PO status, skin status, pertinent labs and weight trends. Will f/u in 3-5 days. 1) Continue to closely monitor pt PO intake to meet at least 75% of meals 2) Consider a CCHO 75g, Renal Specific 100g protein diet 3) Consider a daily MVI with 500mg VitC BID 4) Continue current plan of care
[2020-05-08 17:00] VITALS: BP 126/60
--- NOTE | 2020-05-08 18:55 | NUR ---
RT NOTE RECEIVED PT ON BIPAP B6 ON STATED SETTINGS WITH FULL FACE MASK. BIPAP IS PLUGGED TO RED OUTLET. ALARMS ARE ON AND AUDIBLE TO NURSING AND SITTER. PT IS ON BEDSIDE POX PER PROTOCOL. HHN GIVEN INLINE WITH 2.5 MG ALBUTEROL, 0.5 MG ATROVENT AND 0.5 MG PULMICORT WITHOUT ADVERSE REACTION. PT IS VERY ANXIOUS/AGITATED AND KEEPS TRYING REMOVE MASK DESPITE MITTENS IN PLACE. SITTER ALAN AT BEDSIDE. PT IS AWAKE AND ABLE TO ANSWER TO NAME AND YES OR NO QUESTIONS. CONT ORDERED. POX 93% Addendum: 05/08/20 at 1902 by Tammy Laguna RT Amended: Links added.
--- NOTE | 2020-05-08 20:47 | NUR ---
RT NOTE ROUTINE BIPAP CHECK DONE. PT ON BIPAP B6 ON STATED SETTINGS WITH FULL FACE MASK. BIPAP IS PLUGGED TO RED OUTLET. ALARMS ARE ON AND AUDIBLE TO NURSING AND SITTER. PT IS ON BEDSIDE POX PER PROTOCOL. DEONTE MCINTYRE AND MELISSA PHILLIPS AT BEDSIDE. CONT ORDERED. POX 91% Addendum: 05/08/20 at 205 by Tammy Laguna RT Amended: Links added.
--- NOTE | 2020-05-08 22:06 | NUR ---
RT NOTE ROUTINE BIPAP CHECK DONE. PT ON BIPAP B6 ON STATED SETTINGS WITH FULL FACE MASK. BIPAP IS PLUGGED TO RED OUTLET. ALARMS ARE ON AND AUDIBLE TO NURSING AND SITTER. PT IS ON BEDSIDE POX PER PROTOCOL.MELISSA PHILLIPS AT BEDSIDE. PT IS AGITATED AND APPEARS ANXIOUS AT THIS TIME. HHN GIVEN INLINE WITH 2.5 MG ALBUTEROL AND 0.5 MG ATROVENT WITHOUT ADVERSE REACTION NOTED.CONT ORDERED. POX 85% PRE TX, 90-91% POST TX Addendum: 05/08/20 at 2215 by Tammy Laguna RT Amended: Links added.
[2020-05-08 22:14] VITALS: BP 151/87
--- NOTE | 2020-05-09 00:17 | NUR ---
RT NOTE ROUTINE BIPAP CHECK DONE. PT ON BIPAP B6 ON STATED SETTINGS WITH FULL FACE MASK. BIPAP IS PLUGGED TO RED OUTLET. ALARMS ARE ON AND AUDIBLE TO NURSING AND SITTER. PT IS ON BEDSIDE POX PER PROTOCOL.MELISSA PHILLIPS AT BEDSIDE. PT IS AGITATED AND APPEARS ANXIOUS AT THIS TIME. CONT ORDERED. POX 87% Addendum: 05/09/20 at 0124 by Tammy Laguna RT Amended: Links added.
--- NOTE | 2020-05-09 01:59 | NUR ---
RT NOTE ROUTINE BIPAP CHECK DONE. PT ON BIPAP B6 ON STATED SETTINGS WITH FULL FACE MASK. BIPAP IS PLUGGED TO RED OUTLET. ALARMS ARE ON AND AUDIBLE TO NURSING AND SITTER. PT IS ON BEDSIDE POX PER PROTOCOL.MELISSA PHILLIPS AT BEDSIDE. HHN GIVEN INLINE WITH 2.5 MG ALBUTEROL AND 0.5 MG ATROVENT WITHOUT ADVERSE REACTION NOTED. CONT ORDERED. POX 87% Addendum: 05/09/20 at 0248 by Tammy Laguna RT Amended: Links added.
[2020-05-09] MEDS: ALBUTEROL SULF 2.5 MG/0.5ML(0.5%) NEB SOLN NEB SCH ×6 (02:44→22:33)
[2020-05-09] MEDS: IPRATROPIUM BROM 0.5 MG/2.5ML INH SOL NEB SCH ×6 (02:45→22:33)
--- NOTE | 2020-05-09 04:19 | NUR ---
RT NOTE ROUTINE BIPAP CHECK DONE. PT ON BIPAP B6 ON STATED SETTINGS WITH FULL FACE MASK. BIPAP IS PLUGGED TO RED OUTLET. ALARMS ARE ON AND AUDIBLE TO NURSING AND SITTER. PT IS ON BEDSIDE POX PER PROTOCOL.MELISSA PHILLIPS AT BEDSIDE. PT IS AWAKE AND MOVING ALL AROUND. CONT ORDERED. POX 89% Addendum: 05/09/20 at 7254 by Tammy Laguna RT Amended: Links added.
[2020-05-09 05:42] VITALS: BP 138/83
[2020-05-09] MEDS: FUROSEMIDE 40 MG/4 ML VIAL IV SCH ×2 (05:49→17:23)
[2020-05-09] MEDS: PIPERACILLIN-TAZOB 3.375GM 100 ML IV SCH ×3 (05:50→22:11)
[2020-05-09] MEDS: methylPREDNISolone SOD SUCC 125 MG/2 ML VL IV SCH ×3 (05:50→22:10)
[2020-05-09] MEDS: BUDESONIDE (INHALATION) 0.5 MG/2 ML NEB NEB SCH ×2 (06:28→22:33)
[2020-05-09] MEDS: LINEZOLID 600MG/300ML 300 ML IV SCH ×2 (07:48→19:45)
[2020-05-09 09:00] VITALS: BP 109/34
[2020-05-09 09:56] VITALS: BP 138/83
--- NOTE | 2020-05-09 10:33 | NUR ---
MD at bedside MD Perera at bedside to assess patient. MD aware of patient's status including pt noted very anxious and trying to remove Bipap mask. Per MD Perera unable to order anything for anxiety due to oxygen saturation dropping. MD states continue current treatment and Dr Ivy will resume care on Sunday. No new orders received
[2020-05-09] MEDS: ENOXAPARIN SOD 40 MG/0.4 ML SYRINGE SC SCH (10:43)
[2020-05-09] MEDS: INSULIN LANTUS (GLARGINE) 1 /0.01ml (100units/ml) SC SCH ×2 (10:45→22:00)
[2020-05-09 13:00] VITALS: BP 99/60
--- NOTE | 2020-05-09 13:51 | NUR ---
Pt rounds patient is able to follow commands. Mittens off and patient resting at this time. When asked if pt has pain he nods head and says no. Patient anxiety noted decreased and when asked if feeling anxious at all he also states no and nods head. Oxygen sat at this time is 92%. Patient assisted and repositioned and states comfortable at this time and denies need for further interventions. Cont to monitor.
[2020-05-09 17:00] VITALS: BP 93/51
[2020-05-09] MEDS ORDERED: HALOPERIDOL LACTATE 5 MG/ML INJ VIAL IM ONE (18:15)
--- NOTE | 2020-05-09 18:20 | NUR ---
Patient is very restless and anxious at this time noted pulling on IV line and attempting to pull off Bipap. After multiple attempts to reorient the patient, he's still noted doing this. MD Perera made aware and new orders received. Will medicate as ordered with Haldol IM 1mg once. Sitter at bedside.
--- NOTE | 2020-05-09 18:59 | NUR ---
Patient care endorsed endorsed care to Elizabeth rn. Patient cont on Bipap and sitter at bedside reorienting patient and encouraging not to pull on lines. Patient currently sat 91%. No acute distress or sob noted. Fall precs in place per protocol.
--- NOTE | 2020-05-09 19:00 | NUR ---
OPENING NOTE Received report from day shift RN. Patient examined at bedside with RN, Landy. Patient on Bipap and sitter is at bedside for safety. Patient being reoriented and encouraged not to pull on any lines. Patient nods head in understanding. Patient's O2 sat is between 91-93%. No distress or SOB noted. Bed is in lowest/locked position with side rails up X's 2 and HOB elevated. Aspiration precautions are in place. Will continue care.
[2020-05-09 22:00] VITALS: BP 94/56
--- NOTE | 2020-05-10 02:06 | NUR ---
LINEN CHANGE All of patient's linen was changed at this time. Patient able to help turn. Patient tolerated well. No s/s of acute distress noted. Will continue to turn Q2HR . HOB elevated.
[2020-05-10] MEDS: IPRATROPIUM BROM 0.5 MG/2.5ML INH SOL NEB SCH ×6 (02:17→21:30)
[2020-05-10] MEDS: ALBUTEROL SULF 2.5 MG/0.5ML(0.5%) NEB SOLN NEB SCH ×6 (02:17→21:30)
--- NOTE | 2020-05-10 04:55 | NUR ---
RT AT BEDSIDE to help adjust patient's bipap mask. Patient O2 remaining between 89-93% at this time.
[2020-05-10 05:10] VITALS: BP 104/77
[2020-05-10] MEDS: methylPREDNISolone SOD SUCC 125 MG/2 ML VL IV SCH ×3 (05:29→22:09)
[2020-05-10] MEDS: FUROSEMIDE 40 MG/4 ML VIAL IV SCH ×2 (05:29→18:00)
[2020-05-10] MEDS: PIPERACILLIN-TAZOB 3.375GM 100 ML IV SCH ×3 (05:30→22:09)
[2020-05-10] MEDS: BUDESONIDE (INHALATION) 0.5 MG/2 ML NEB NEB SCH ×2 (06:49→21:30)
--- NOTE | 2020-05-10 07:55 | NUR ---
Opening Shift Note Assumed care of patient, awake and alert to self. BIPAP in place. Instructed on POC and to call for assist PRN, will continue to monitor for changes Q1hr and PRN. Sitter in attendance.
[2020-05-10] MEDS: LINEZOLID 600MG/300ML 300 ML IV SCH ×2 (08:22→19:25)
[2020-05-10 09:17] VITALS: BP 96/54
[2020-05-10] MEDS: INSULIN LANTUS (GLARGINE) 1 /0.01ml (100units/ml) SC SCH ×2 (10:00→22:00)
[2020-05-10] MEDS: ENOXAPARIN SOD 40 MG/0.4 ML SYRINGE SC SCH (10:09)
--- NOTE | 2020-05-10 11:18 | NUR ---
WOUND CARE NOTE: Added patient back to wound care monitoring list due to Low Cody score of 11. Patient is 74 years old male with admitting diagnosis of CHF, COPD. Patient is resting in bed in Rm. 222B. Patient is awake and on Bi Pap mask. Patient seen by wound care on 05/02/20 Right Foot wound that are noted present on admission which now covered with dry intact scabs, leave open to air. DEONTE Howard at bedside reported that patient's Cody score dropped down to 11 due to some confusion and patient is not turning as much. 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 He continue receiving BID/PRN cleaning and application of Z Guard cream to sacral, buttocks and perineum per MD order. Patient tolerated well, no other wound noted. DEONTE Howard and nurse's aide at bedside. RECOMMENDATION: Leave dry scabbed wounds to R foot, Rt heel open to air per MD order, Nursing to continue with BID/PRN cleaning and application of Barrier cream to buttocks perineum per MD order, frequent turning and repositioning schedule as condition permits, redistribute pressure points with pillows, frequent eliezer care/check, keep clean and dry, continue monitoring by wound care while Cody score is <18. Addendum: 05/10/20 at 1233 by Josselin Santana RN Amended: Links added.
[2020-05-10] MEDS ORDERED: MORPHINE SULF INJ 2 MG/ML SYRINGE 1ML IV PRN (11:30)
[2020-05-10] MEDS: LORazepam 2MG/ML-1ML VIAL IV PRN ×2 (12:07→18:14)
--- NOTE | 2020-05-10 12:07 | NUR ---
Agitation Patient is very restless and agitated, saturation 60-75% on BIPAP, medicated with Ativan as ordered.
[2020-05-10 12:45] VITALS: BP 101/65
--- NOTE | 2020-05-10 16:02 | NUR ---
Pain Patient complained of pain. Medicated with morphine 2 mg as ordered. Will reassess as per protocol.
[2020-05-10 16:35] VITALS: BP 100/60
--- NOTE | 2020-05-10 17:45 | NUR ---
Respiratory note: GOT PAGED TO ROOM, PATIENT SPO2 WAS IN THE 66'S. PATIENT WAS VERY AGITATED WITH SITTER AT BEDSIDE. I SWITCHED FROM NASAL CUSHION TO A MEDIUM MASK, SPO2 92%.
--- NOTE | 2020-05-10 19:00 | NUR ---
Opening Shift Note Assumed care of patient. Patient is asleep at this time. Will continue to monitor and turn Q 2 hours.
[2020-05-10 22:00] VITALS: BP 109/62
--- NOTE | 2020-05-11 | NUR ---
NOTE patient's sheets changed at this time. Patient was cleansed well and applied barrier cream to sacrum and eliezer area. Redness noted. Will continue to turn patient Q2HR. Patient responding to simple questions appropriately by nodding head and appears comfortable at this time. Patient was able to help turn from side to side. Will continue care.
[2020-05-11] MEDS: ALBUTEROL SULF 2.5 MG/0.5ML(0.5%) NEB SOLN NEB SCH ×3 (02:00→10:23)
[2020-05-11] MEDS: IPRATROPIUM BROM 0.5 MG/2.5ML INH SOL NEB SCH ×3 (02:00→10:22)
--- NOTE | 2020-05-11 02:54 | NUR ---
PAGED RT RT at bedside to help adjust patient's mask at this time. O2 ranging from 80-84%. Will continue care.
[2020-05-11 05:00] VITALS: BP 91/49
[2020-05-11] MEDS: methylPREDNISolone SOD SUCC 125 MG/2 ML VL IV SCH (05:54)
[2020-05-11] MEDS: PIPERACILLIN-TAZOB 3.375GM 100 ML IV SCH (05:54)
[2020-05-11] MEDS: FUROSEMIDE 40 MG/4 ML VIAL IV SCH (05:56)
--- NOTE | 2020-05-11 07:00 | NUR ---
Opening Shift Note Received report on the patient. Awake lying in bed. Patient shows no signs of distress at this time. Discussed the plan of care with the patient. Patient was unable to comprehend. Bed in lowest position, side rails up x2, and the call light is within reach.
[2020-05-11] MEDS: BUDESONIDE (INHALATION) 0.5 MG/2 ML NEB NEB SCH (07:36)
[2020-05-11 08:55] VITALS: BP 96/59
[2020-05-11] MEDS: LINEZOLID 600MG/300ML 300 ML IV SCH (09:05)
[2020-05-11] MEDS: ENOXAPARIN SOD 40 MG/0.4 ML SYRINGE SC SCH (09:26)
[2020-05-11] MEDS: INSULIN LANTUS (GLARGINE) 1 /0.01ml (100units/ml) SC SCH (09:27)
[2020-05-11] MEDS: LORazepam 2MG/ML-1ML VIAL IV PRN (11:08)
--- NOTE | 2020-05-11 11:11 | NUR ---
Dr Spaulding at bedside. New orders received. RT paged to call.
[2020-05-11] MEDS ORDERED: MORPHINE SULF INJ 2 MG/ML SYRINGE 1ML IV PRN (11:15)
[2020-05-11] MEDS ORDERED: LORazepam 2MG/ML-1ML VIAL IV PRN (11:15)
--- NOTE | 2020-05-11 11:20 | NUR ---
Respiratory note: TOOK PT OFF BIPAP FOR COMFORT MEASURES PER . TRIED TO PLACE PT ON 2L NC NUT PT REFUSED. RN AND SITTER AT BEDSIDE.
--- NOTE | 2020-05-11 11:36 | NUR ---
Spoke to the patient and his sister and the Bipap was removed. Stayed with the patient at beside. Asystole. Family notified.
--- NOTE | 2020-05-11 11:43 | NUR ---
[employer] called. They will not pursue. Case# [id number].
--- NOTE | 2020-05-11 12:11 | NUR ---
[facility] called. Awaiting a call back.
--- NOTE | 2020-05-11 12:36 | NUR ---
I SPOKE TO [facility] AT [phone]. THEY HAVE BEEN AUTHORIZED TO COUNTER SUPPLY WORKER DECEDENT
--- NOTE | 2020-05-11 13:55 | NUR ---
PSYCH THERAPIST CALLED. NO CASE NUMBER BECAUSE OF NATURAL . SPOKE TO MURTAZA NIEVES.
--- NOTE | 2020-05-11 15:26 | NUR ---
[facility] CAME AND PICKED UP THE REMAINS.
--- NOTE | 2020-05-11 15:38 | NUR ---
re-assessment Patient Addendum: 05/11/20 at 1539 by Tess BATES Amended: Links added.
== END 2020-05-11 11:30 | disposition expired | DRG 871 ==
LOC: ER 14:53 → EDBD 14:53 → TELE 14:54 → TELE-CENTR 21:30
PROVIDERS: ATTEND Internal Medicine
PROC: 5A09357 Assistance with Respiratory Ventilation, Less than 24 Consecutive Hours, Continuous Positive Airway Pressure (ICD-10-PCS; principal; 2020-05-01)
PROC: 5A09357 Assistance with Respiratory Ventilation, Less than 24 Consecutive Hours, Continuous Positive Airway Pressure (ICD-10-PCS; 2020-05-02)
PROC: 5A09357 Assistance with Respiratory Ventilation, Less than 24 Consecutive Hours, Continuous Positive Airway Pressure (ICD-10-PCS; 2020-05-03)
PROC: 5A09357 Assistance with Respiratory Ventilation, Less than 24 Consecutive Hours, Continuous Positive Airway Pressure (ICD-10-PCS; 2020-05-04)
PROC: 5A09557 Assistance with Respiratory Ventilation, Greater than 96 Consecutive Hours, Continuous Positive Airway Pressure (ICD-10-PCS; 2020-05-05)
DX: A41.9 Sepsis, unspecified organism (principal); I21.A1 Myocardial infarction type 2; J18.9 Pneumonia, unspecified organism; J96.21 Acute and chronic respiratory failure with hypoxia; I50.43 Acute on chronic combined systolic (congestive) and diastolic (congestive) heart failure; J44.1 Chronic obstructive pulmonary disease with (acute) exacerbation; D68.59 Other primary thrombophilia; I13.0 Hypertensive heart and chronic kidney disease with heart failure and stage 1 through stage 4 chronic kidney disease, or unspecified chronic kidney disease; J44.0 Chronic obstructive pulmonary disease with (acute) lower respiratory infection; N17.9 Acute kidney failure, unspecified; I48.0 Paroxysmal atrial fibrillation; D64.9 Anemia, unspecified; E66.01 Morbid (severe) obesity due to excess calories; E78.5 Hyperlipidemia, unspecified; I25.10 Atherosclerotic heart disease of native coronary artery without angina pectoris; I25.5 Ischemic cardiomyopathy; N18.3 Chronic kidney disease, stage 3 (moderate); E11.22 Type 2 diabetes mellitus with diabetic chronic kidney disease; M19.90 Unspecified osteoarthritis, unspecified site; Z51.5 Encounter for palliative care; Z66 Do not resuscitate; E11.40 Type 2 diabetes mellitus with diabetic neuropathy, unspecified; L97.519 Non-pressure chronic ulcer of other part of right foot with unspecified severity; E11.621 Type 2 diabetes mellitus with foot ulcer; E11.21 Type 2 diabetes mellitus with diabetic nephropathy; Z88.2 Allergy status to sulfonamides; Z68.36 Body mass index [BMI] 36.0-36.9, adult; Z91.19 Patient's noncompliance with other medical treatment and regimen; Z83.3 Family history of diabetes mellitus; Z79.01 Long term (current) use of anticoagulants; Z82.49 Family history of ischemic heart disease and other diseases of the circulatory system; Z90.49 Acquired absence of other specified parts of digestive tract; Z90.89 Acquired absence of other organs; Z79.899 Other long term (current) drug therapy; Z95.5 Presence of coronary angioplasty implant and graft; Z87.891 Personal history of nicotine dependence; M25.461 Effusion, right knee; M21.961 Unspecified acquired deformity of right lower leg
CPT/HCPCS: 36415; 36600; 71045; 80048; 80053; 81001; 82805; 82962; 83540; 83550; 83605; 83880; 84484; 85007; 85025; 85027; 85045; 87040; 87081; 93005; 94640; 94660; 94762; C9113; G0378; J0696; J1815; J2405; J2543; J3490